=== PATIENT | female | born 1955 | race Caucasian/White ===

== ENCOUNTER → 2017-08-01 | Outpatient (CLI) | payer OTHER ==
[~2017-08-01] MED LIST: 0; ADAL40PEN IM; ADAL40PEN SC; ALBIPROI INH; ALBU2.5V5 NEB; ALBU90OI6 INH; ALEN70 PO; ALPR.25 PO; AMIT10 PO; AMIT25 PO; ATOR10 PO; Bacid1 EACH PO; CARI350 PO; CELE200 PO; CENTRUM SILVER1 EAC2 PO; CEPH500 PO; CLON1 PO; CODGUAEL PO; DILT60 PO; DIPATR PO; DOCU100 PO; DULO30 PO; DULO60 PO; EMBREL INJ; ERGO400 PO; ESTMED1.5T PO; ETAN50I INJ; FENT50TP TOP; FENT75TP TOP; FERR325 PO; FLUCONAZOLE PO; FLUO20; FLUO20 PO; FOLI1; FOLI1 PO; HYDACE10B PO; HYDACE5 PO; HYDMOR2 PO; HYDMOR4 PO; HYDR1TAB94 PO; IMITREX PO; Keflex500 MG PO; LEVO750 PO; LIDO700A20 TOP; LORA2 PO; LYRICA PO; METTREX2.5; METTREX2.5 PO; NAPR220 PO; Nicoderm Cq1 EAC1 ID; OMEG1CAP30 PO; OXYACE5T PO; OXYC10ER PO; OXYC15ER PO; OXYC1TAB11 PO; OXYC5 PO; PERCOCET PO; PRED10 PO; PRED20 PO; PREG200 PO; PREG50 PO; PROM25 PO; PROVENTIL INH; PROZAC PO; PROZAC20 MG PO; Prednisone20 MG PO; REMICADE; RXHYDMOR2 PO; SIMV5 PO; SUMA25 PO; TIOT18 IH; TRAZ50; TRAZ50 PO; VALS80; VIT D PO; Women's Daily1 EACH PO; [UNRECOGNIZED DRUG - OTHER] PO
[2017-08-03 11:21] LABS: HPV Genotype 16 Not Detected (NOTDET); HPV Genotype 18 Not Detected (NOTDET)
[2017-08-09 08:00] LABS: HPV High Risk Other Detected (NOTDET)
== END ==
LOC: LAB 16:20
PROVIDERS: Nurse Practitioner Family
DX: Z12.4 Encounter for screening for malignant neoplasm of cervix (principal)
CPT/HCPCS: 87624; G0145

== ENCOUNTER 2018-01-21 20:52 | Observation (INO) | payer OTHER ==
[~2018-01-21] VITALS: Ht 172.7 cm; Wt 79.9 kg
[~2018-01-21 20:52] MED LIST changes: -ADAL40PEN SC; -ALBU2.5V5 NEB; -ALBU90OI6 INH; -ERGO400 PO; -LIDO700A20 TOP; -OXYC10ER PO; -Women's Daily1 EACH PO
[2018-01-21] MEDS ORDERED: ALBU2.5V5 NEB (21:08)
[2018-01-21] MEDS ORDERED: ALBU90OI6 INH (21:08)
[2018-01-21] MEDS ORDERED: ADAL40PEN SC (21:08)
[2018-01-21 21:38] LABS: BASOPHILS ABSOLUTE AUTO 0.05 K/mm3 (0.00-0.23); BASOPHILS PERCENT AUTO 1 % (0-2); EOSINOPHILS ABSOLUTE AUTO 0.11 K/mm3 (0.00-0.68); EOSINOPHILS PERCENT AUTO 1 % (0-6); Hematocrit 42.7 % (33.0-51.0); Hemoglobin 14.2 g/dL (11.5-16.0); IMMATURE GRAN ABSOLUTE AUTO 0.07 K/mm3 (0.00-0.10); IMMATURE GRAN PERCENT AUTO 1 % (0-1); LYMPHOCYTES ABSOLUTE AUTO 4.87 K/mm3 (0.84-5.20); LYMPHOCYTES PERCENT AUTO 49 % (21-46); MONOCYTES ABSOLUTE AUTO 0.67 K/mm3 (0.16-1.47); MONOCYTES PERCENT AUTO 7 % (4-13); Mean Corpuscular HGB 31.2 pg (26.0-34.0); Mean Corpuscular HGB Conc 33.3 g/dL (31.5-36.5); Mean Corpuscular Volume 94 fL (80-100); Mean Platelet Volume 10.1 fL (9.1-12.4); NEUTROPHILS ABSOLUTE AUTO 4.14 K/mm3 (1.96-9.15); NEUTROPHILS PERCENT AUTO 42 % (41-73); Platelet Count 379 K/mm3 (150-400); RDW Coefficient Variation 15.6 % (11.7-14.2); RDW Standard Deviation 53.7 fL (35.1-46.3); Red Blood Cell Count 4.55 M/mm3 (3.80-5.20); White Blood Cell Count 9.91 K/mm3 (4.00-11.30)
[2018-01-21 21:56] LABS: Alanine Aminotransfer (ALT/SGP 26 U/L (12-78); Albumin, Blood 3.3 g/dL (3.4-5.0); Albumin/Globulin Ratio 0.8 (0.8-1.8); Alk Phos 67 U/L (50-136); Anion Gap 11 mmol/L (6-16); Aspartate Aminotrans (AST/SGOT 28 U/L (12-37); Bilirubin, Total 0.1 mg/dL (0.1-1.0); Blood Urea Nitrogen 12 mg/dL (8-24); Bun/Creatinine Ratio 16.9 (12.0-20.0); CO2, Blood 25 mmol/L (21-32); Calcium, Blood 8.4 mg/dL (8.5-10.1); Chloride, Blood 110 mmol/L (98-108); Creatinine, Blood 0.71 mg/dL (0.40-1.00); Globulin, Blood 4.3 g/dL (2.2-4.0); Glomerular Filtration Rate >60 (60-); Glucose, Blood 87 mg/dL (70-99); Potassium, Blood 3.3 mmol/L (3.5-5.5); Sodium, Blood 146 mmol/L (136-145); Total Protein, Blood 7.6 g/dL (6.4-8.2)
[2018-01-21 22:14] LABS: Bicarbonate Venous 24.2 mmol/L (24.0-30.0); PCO2 Venous 44.8 mmHg (38-42); PO2 Venous 35.8 mmHg (38-42); pH Blood Venous 7.38 (7.34-7.37)
[2018-01-21 22:34] LABS: Troponin I <0.015 ng/mL (0.000-0.040)
[2018-01-21 23:20] LABS: U Amphetamine Screen Not Detected; U Barbituate Screen Not Detected; U Benzodiazapine Screen DETECTED; U Buprenorphine Screen Not Detected; U Cannabinoids Screen Not Detected; U Cocaine Screen Not Detected; U Methadone Screen Not Detected; U Methamphetamine Screen Not Detected; U Opiates Screen Not Detected; U Oxycodone Screen DETECTED; U Phencyclidine Screen Not Detected; U Propoxyphene Screen Not Detected
[2018-01-22 05:16] LABS: BASOPHILS ABSOLUTE AUTO 0.02 K/mm3 (0.00-0.23); BASOPHILS PERCENT AUTO 0 % (0-2); EOSINOPHILS PERCENT AUTO 0 % (0-6); Hematocrit 38.4 % (33.0-51.0); Hemoglobin 12.7 g/dL (11.5-16.0); IMMATURE GRAN ABSOLUTE AUTO 0.09 K/mm3 (0.00-0.10); IMMATURE GRAN PERCENT AUTO 1 % (0-1); LYMPHOCYTES ABSOLUTE AUTO 0.89 K/mm3 (0.84-5.20); LYMPHOCYTES PERCENT AUTO 10 % (21-46); MONOCYTES ABSOLUTE AUTO 0.07 K/mm3 (0.16-1.47); MONOCYTES PERCENT AUTO 1 % (4-13); Mean Corpuscular HGB 30.9 pg (26.0-34.0); Mean Corpuscular HGB Conc 33.1 g/dL (31.5-36.5); Mean Corpuscular Volume 93 fL (80-100); Mean Platelet Volume 10.6 fL (9.1-12.4); NEUTROPHILS ABSOLUTE AUTO 8.18 K/mm3 (1.96-9.15); NEUTROPHILS PERCENT AUTO 88 % (41-73); Platelet Count 334 K/mm3 (150-400); RDW Coefficient Variation 15.6 % (11.7-14.2); RDW Standard Deviation 53.8 fL (35.1-46.3); Red Blood Cell Count 4.11 M/mm3 (3.80-5.20); White Blood Cell Count 9.25 K/mm3 (4.00-11.30)
[2018-01-22 05:39] LABS: Anion Gap 10 mmol/L (6-16); Blood Urea Nitrogen 15 mg/dL (8-24); Bun/Creatinine Ratio 22.4 (12.0-20.0); CO2, Blood 24 mmol/L (21-32); Calcium, Blood 7.8 mg/dL (8.5-10.1); Chloride, Blood 108 mmol/L (98-108); Creatinine, Blood 0.67 mg/dL (0.40-1.00); Glomerular Filtration Rate >60 (60-); Glucose, Blood 153 mg/dL (70-99); Potassium, Blood 3.8 mmol/L (3.5-5.5); Sodium, Blood 142 mmol/L (136-145)
== END 2018-01-22 10:20 | disposition home or self-care (01) ==
LOC: ER 20:52 → MEDS 20:53 → ENPENDDIS 01-22 09:36 → MEDS 01-22 10:20
PROVIDERS: Emergency Medicine; Hospitalist
DX: R09.02 Hypoxemia (principal); M06.9 Rheumatoid arthritis, unspecified; M79.7 Fibromyalgia; G43.909 Migraine, unspecified, not intractable, without status migrainosus; F41.9 Anxiety disorder, unspecified; F32.9 Major depressive disorder, single episode, unspecified; F17.210 Nicotine dependence, cigarettes, uncomplicated; J84.9 Interstitial pulmonary disease, unspecified; I95.9 Hypotension, unspecified; Z79.4 Long term (current) use of insulin; Z79.899 Other long term (current) drug therapy; Z88.8 Allergy status to other drugs, medicaments and biological substances; Z91.048 Other nonmedicinal substance allergy status
CPT/HCPCS: 36415; 71046; 71260; 80048; 80053; 82803; 83605; 83880; 84484; 85025; 85379; 87040; 94644; 96361; 96365; 96366; 96372; 96374; 96375; 96376; 99285-25; G0378; J0456; J0696; J1650; J2930; J7030; J7050; Q9967

== ENCOUNTER 2018-04-08 18:50 | Emergency (ER) | payer OTHER ==
[~2018-04-08] VITALS: Ht 172.7 cm; Wt 77.1 kg
[~2018-04-08 18:50] MED LIST changes: +ADAL40PEN SC; +ALBU2.5V5 NEB; +ALBU90OI6 INH
[2018-04-08] MEDS ORDERED: LIDO700A20 TOP (20:11)
== END 2018-04-08 20:23 | disposition home or self-care (01) ==
LOC: ER 18:50
DX: S22.32XA Fracture of one rib, left side, initial encounter for closed fracture (principal); F41.9 Anxiety disorder, unspecified; F32.9 Major depressive disorder, single episode, unspecified; F17.210 Nicotine dependence, cigarettes, uncomplicated; Z88.8 Allergy status to other drugs, medicaments and biological substances; Z88.6 Allergy status to analgesic agent; Z91.048 Other nonmedicinal substance allergy status; Z79.899 Other long term (current) drug therapy; Z79.51 Long term (current) use of inhaled steroids; W06.XXXA Fall from bed, initial encounter
CPT/HCPCS: 71046; 71100; 96372; 99283-25; J1885

== ENCOUNTER 2018-08-05 13:03 | Emergency (ER) | payer OTHER ==
[~2018-08-05] VITALS: Ht 172.7 cm; Wt 69.8 kg
[~2018-08-05 13:03] MED LIST changes: +ERGO400 PO; +LIDO700A20 TOP; +OXYC10ER PO; +Women's Daily1 EACH PO
[2018-08-05 13:27] LABS: BASOPHILS ABSOLUTE AUTO 0.08 K/mm3 (0.00-0.23); BASOPHILS PERCENT AUTO 1 % (0-2); EOSINOPHILS ABSOLUTE AUTO 0.13 K/mm3 (0.00-0.68); EOSINOPHILS PERCENT AUTO 1 % (0-6); Hematocrit 38.1 % (33.0-51.0); Hemoglobin 11.4 g/dL (11.5-16.0); IMMATURE GRAN ABSOLUTE AUTO 0.41 K/mm3 (0.00-0.10); IMMATURE GRAN PERCENT AUTO 4 % (0-1); LYMPHOCYTES ABSOLUTE AUTO 2.29 K/mm3 (0.84-5.20); LYMPHOCYTES PERCENT AUTO 21 % (21-46); MONOCYTES PERCENT AUTO 5 % (4-13); Mean Corpuscular HGB 32.6 pg (26.0-34.0); Mean Corpuscular HGB Conc 29.9 g/dL (31.5-36.5); Mean Corpuscular Volume 109 fL (80-100); Mean Platelet Volume 11.5 fL (9.1-12.4); NEUTROPHILS ABSOLUTE AUTO 7.68 K/mm3 (1.96-9.15); NEUTROPHILS PERCENT AUTO 69 % (41-73); Platelet Count 240 K/mm3 (150-400); RDW Coefficient Variation 15.9 % (11.7-14.2); RDW Standard Deviation 64.6 fL (35.1-46.3); White Blood Cell Count 11.09 K/mm3 (4.00-11.30)
[2018-08-05 13:44] LABS: Alanine Aminotransfer (ALT/SGP 30 U/L (12-78); Albumin, Blood 3.1 g/dL (3.4-5.0); Albumin/Globulin Ratio 0.8 (0.8-1.8); Alk Phos 80 U/L (50-136); Anion Gap 6 mmol/L (6-16); Aspartate Aminotrans (AST/SGOT 34 U/L (12-37); Bilirubin, Total 0.2 mg/dL (0.1-1.0); Blood Urea Nitrogen 14 mg/dL (8-24); CO2, Blood 31 mmol/L (21-32); Calcium, Blood 8.6 mg/dL (8.5-10.1); Chloride, Blood 106 mmol/L (98-108); Creatinine, Blood 0.64 mg/dL (0.40-1.00); Globulin, Blood 3.8 g/dL (2.2-4.0); Glomerular Filtration Rate >60 (60-); Glucose, Blood 115 mg/dL (70-99); Potassium, Blood 4.3 mmol/L (3.5-5.5); Sodium, Blood 143 mmol/L (136-145); Total Protein, Blood 6.9 g/dL (6.4-8.2)
== END 2018-08-05 13:58 | disposition home or self-care (01) ==
LOC: ER 13:03
PROVIDERS: Internal Medicine
DX: S00.03XA Contusion of scalp, initial encounter (principal); W18.30XA Fall on same level, unspecified, initial encounter; Z88.6 Allergy status to analgesic agent; Z91.048 Other nonmedicinal substance allergy status; Z88.8 Allergy status to other drugs, medicaments and biological substances; Z79.899 Other long term (current) drug therapy; Z79.891 Long term (current) use of opiate analgesic; G43.909 Migraine, unspecified, not intractable, without status migrainosus; F32.9 Major depressive disorder, single episode, unspecified; F17.210 Nicotine dependence, cigarettes, uncomplicated
CPT/HCPCS: 70450; 80053; 85025; 85730; 99284-25

== ENCOUNTER 2018-08-12 11:07 | Emergency (ER) | payer OTHER ==
[~2018-08-12] VITALS: Ht 172.7 cm; Wt 69.8 kg
[2018-08-12] MEDS ORDERED: ALPR.5 PO (12:02)
[2018-08-12] MEDS ORDERED: ACET325 PO (12:02)
[2018-08-12] MEDS ORDERED: ENOX80I SC (12:03)
[2018-08-12] MEDS ORDERED: Bisoprolol Fumar5 MG PO (12:03)
[2018-08-12] MEDS ORDERED: FURO20 PO (12:04)
[2018-08-12] MEDS ORDERED: MIRT15 PO (12:06)
[2018-08-12] MEDS ORDERED: Ipratropium Bro30 ML INH (12:06)
[2018-08-12] MEDS ORDERED: Prednisone10 M1 PO (12:07)
[2018-08-12] MEDS ORDERED: PRED10 (12:07)
[2018-08-12] MEDS ORDERED: QUET25 PO (12:08)
[2018-08-12] MEDS ORDERED: RAME8 PO (12:08)
[2018-08-12] MEDS ORDERED: VORI200 PO (12:09)
[2018-08-12] MEDS ORDERED: SPIR25 PO (12:09)
[2018-08-12 12:49] LABS: BASOPHILS ABSOLUTE AUTO 0.05 K/mm3 (0.00-0.23); BASOPHILS PERCENT AUTO 0 % (0-2); EOSINOPHILS ABSOLUTE AUTO 0.22 K/mm3 (0.00-0.68); EOSINOPHILS PERCENT AUTO 2 % (0-6); Hematocrit 24.2 % (33.0-51.0); Hemoglobin 7.3 g/dL (11.5-16.0); IMMATURE GRAN ABSOLUTE AUTO 0.87 K/mm3 (0.00-0.10); IMMATURE GRAN PERCENT AUTO 6 % (0-1); LYMPHOCYTES ABSOLUTE AUTO 2.67 K/mm3 (0.84-5.20); LYMPHOCYTES PERCENT AUTO 19 % (21-46); MONOCYTES ABSOLUTE AUTO 1.71 K/mm3 (0.16-1.47); MONOCYTES PERCENT AUTO 12 % (4-13); Mean Corpuscular HGB 33.2 pg (26.0-34.0); Mean Corpuscular HGB Conc 30.2 g/dL (31.5-36.5); Mean Corpuscular Volume 110 fL (80-100); Mean Platelet Volume 11.5 fL (9.1-12.4); NEUTROPHILS ABSOLUTE AUTO 8.63 K/mm3 (1.96-9.15); NEUTROPHILS PERCENT AUTO 61 % (41-73); NRBC ABSOLUTE 0.03 K/mm3 (0.00-0.02); NRBC Auto 0.2 /100 WBC (0.0-0.2); Platelet Count 256 K/mm3 (150-400); RDW Coefficient Variation 14.9 % (11.7-14.2); White Blood Cell Count 14.15 K/mm3 (4.00-11.30)
[2018-08-12 13:02] LABS: Alanine Aminotransfer (ALT/SGP 18 U/L (12-78); Albumin, Blood 2.6 g/dL (3.4-5.0); Albumin/Globulin Ratio 0.8 (0.8-1.8); Alk Phos 79 U/L (50-136); Anion Gap 5 mmol/L (6-16); Aspartate Aminotrans (AST/SGOT 19 U/L (12-37); Bilirubin, Total 0.3 mg/dL (0.1-1.0); Blood Urea Nitrogen 22 mg/dL (8-24); Bun/Creatinine Ratio 30.1 (12.0-20.0); CO2, Blood 28 mmol/L (21-32); Calcium, Blood 7.8 mg/dL (8.5-10.1); Chloride, Blood 103 mmol/L (98-108); Creatinine, Blood 0.73 mg/dL (0.40-1.00); Globulin, Blood 3.3 g/dL (2.2-4.0); Glomerular Filtration Rate >60 (60-); Glucose, Blood 118 mg/dL (70-99); Potassium, Blood 4.5 mmol/L (3.5-5.5); Sodium, Blood 136 mmol/L (136-145); Total Protein, Blood 5.9 g/dL (6.4-8.2)
[2018-08-12] MEDS ORDERED: IRON150C PO (13:50)
[2018-08-12] MEDS ORDERED: Ultram50 MG PO (13:50)
== END 2018-08-12 15:06 | disposition home or self-care (01) ==
LOC: ER 11:07
PROVIDERS: Physician Assistant
DX: S80.11XA Contusion of right lower leg, initial encounter (principal); D64.9 Anemia, unspecified; D68.9 Coagulation defect, unspecified; I82.411 Acute embolism and thrombosis of right femoral vein; W19.XXXA Unspecified fall, initial encounter; Z88.8 Allergy status to other drugs, medicaments and biological substances; Z88.6 Allergy status to analgesic agent; Z91.048 Other nonmedicinal substance allergy status; Z79.899 Other long term (current) drug therapy; Z79.891 Long term (current) use of opiate analgesic; Z79.52 Long term (current) use of systemic steroids; G43.909 Migraine, unspecified, not intractable, without status migrainosus; F32.9 Major depressive disorder, single episode, unspecified; I48.91 Unspecified atrial fibrillation; F17.210 Nicotine dependence, cigarettes, uncomplicated
CPT/HCPCS: 36415; 71046; 80053; 83605; 85025; 93005; 93010; 93971; 96361; 96374; 96375; 96376; 99285-25; J2270; J2405; J2930; J7030

== ENCOUNTER 2018-08-16 18:09 | Inpatient (IN) | payer OTHER ==
[~2018-08-16] VITALS: Ht 172.7 cm; Wt 81.1 kg
[~2018-08-16 18:09] MED LIST changes: +ACET325 PO; +ALPR.5 PO; +Bisoprolol Fumar5 MG PO; +ENOX80I SC; +FURO20 PO; +IRON150C PO; +Ipratropium Bro30 ML INH; +MIRT15 PO; +PRED10; +Prednisone10 M1 PO; +QUET25 PO; +RAME8 PO; +SPIR25 PO; +Ultram50 MG PO; +VORI200 PO
[2018-08-16 19:17] LABS: Mean Corpuscular HGB 32.9 pg (26.0-34.0); Mean Corpuscular HGB Conc 29.6 g/dL (31.5-36.5); Mean Corpuscular Volume 111 fL (80-100); Mean Platelet Volume 11.7 fL (9.1-12.4); NRBC ABSOLUTE 1.78 K/mm3 (0.00-0.02); NRBC Auto 7.9 /100 WBC (0.0-0.2); Platelet Count 336 K/mm3 (150-400); RDW Coefficient Variation 16.9 % (11.7-14.2); RDW Standard Deviation 65.1 fL (35.1-46.3); Red Blood Cell Count 1.61 M/mm3 (3.80-5.20); White Blood Cell Count 22.44 K/mm3 (4.00-11.30)
[2018-08-16 19:20] LABS: Hemoglobin 5.3 g/dL (11.5-16.0)
[2018-08-16 19:21] LABS: Hematocrit 17.9 % (33.0-51.0)
[2018-08-16 19:40] LABS: Troponin I <0.015 ng/mL (0.000-0.040)
[2018-08-16 19:55] LABS: Alanine Aminotransfer (ALT/SGP 27 U/L (12-78); Albumin, Blood 2.6 g/dL (3.4-5.0); Albumin/Globulin Ratio 0.7 (0.8-1.8); Alk Phos 99 U/L (50-136); Anion Gap 7 mmol/L (6-16); Aspartate Aminotrans (AST/SGOT 36 U/L (12-37); BAND PERCENT MAN 3 % (0-8); BASOPHILS PERCENT MAN 0 % (0-2); Bilirubin, Total 0.8 mg/dL (0.1-1.0); Blood Urea Nitrogen 20 mg/dL (8-24); Bun/Creatinine Ratio 26.7 (12.0-20.0); CO2, Blood 29 mmol/L (21-32); Calcium, Blood 8.3 mg/dL (8.5-10.1); Chloride, Blood 101 mmol/L (98-108); Creatinine, Blood 0.75 mg/dL (0.40-1.00); EOSINOPHILS ABSOLUTE MAN 0.22 K/mm3 (0.00-0.68); EOSINOPHILS PERCENT MAN 1 % (0-6); Globulin, Blood 3.8 g/dL (2.2-4.0); Glomerular Filtration Rate >60 (60-); Glucose, Blood 114 mg/dL (70-99); LYMPHOCYTES ABSOLUTE MAN 4.48 K/mm3 (0.84-5.20); LYMPHOCYTES PERCENT MAN 20 % (21-46); METAMYELOCYTE ABSOLUTE MAN 0.22 K/mm3 (0.00-0.00); METAMYELOCYTE PERCENT MAN 1 % (0-0); MONOCYTES ABSOLUTE MAN 1.12 K/mm3 (0.16-1.47); MONOCYTES PERCENT MAN 5 % (4-13); NEUTROPHILS ABSOLUTE MAN 16.38 K/mm3 (1.96-9.15); Potassium, Blood 4.2 mmol/L (3.5-5.5); SEG NEUTROPHILS PERCENT MAN 70 % (41-73); Sodium, Blood 137 mmol/L (136-145); TOTAL CELLS COUNTED 100; Total Protein, Blood 6.4 g/dL (6.4-8.2)
[2018-08-16 20:36] LABS: International Normalized Ratio 0.95; Prothrombin Time Results 10.1 Sec (9.7-11.5)
[2018-08-16] MEDS ORDERED: MELA3 PO (23:58)
[2018-08-17 04:16] LABS: Hemoglobin 6.5 g/dL (11.5-16.0); Mean Corpuscular HGB 31.7 pg (26.0-34.0); Mean Platelet Volume 11.3 fL (9.1-12.4); NRBC ABSOLUTE 1.63 K/mm3 (0.00-0.02); NRBC Auto 8.1 /100 WBC (0.0-0.2); Platelet Count 304 K/mm3 (150-400); RDW Coefficient Variation 19.8 % (11.7-14.2); RDW Standard Deviation 69.3 fL (35.1-46.3); Red Blood Cell Count 2.05 M/mm3 (3.80-5.20); White Blood Cell Count 20.01 K/mm3 (4.00-11.30)
[2018-08-17 04:17] LABS: Mean Corpuscular Volume 102 fL (80-100)
[2018-08-17 04:40] LABS: BAND PERCENT MAN 4 % (0-8); BASOPHILS PERCENT MAN 0 % (0-2); EOSINOPHILS PERCENT MAN 1 % (0-6); LYMPHOCYTES PERCENT MAN 20 % (21-46); METAMYELOCYTE PERCENT MAN 4 % (0-0); MONOCYTES PERCENT MAN 4 % (4-13); MYELOCYTE PERCENT MAN 10 % (0-0); SEG NEUTROPHILS PERCENT MAN 57 % (41-73); TOTAL CELLS COUNTED 100
--- NOTE | 2018-08-17 05:49 | NUR ---
ASSUMED CARE OF PATIENT AT APPROXIMATELY 2320 FROM [facility] RN. PATIENT ARRIVED TO UNIT VIA STRETCHER; TRANSFER VIA SLIDE SHEET AND FOUR STAFF ASSIST. PATIENT REPORTS PAIN IMMEDIATELY IN HER RIGHT LEG; REPORTS SHE TAKES OXYCODONE FOR YEARS. ONE UNIT OF RBC INFUSED BEFORE TRANSFER TO PCU; ONE UNIT OF RBC INFUSED AFTER PATIENT ARRIVED; THIS RN STAYED IN ROOM FOR FIRST 15 MINTUES AND NO ADVERSE S/S OF REACTION NOTED. VSS. NSR ON TELE; OXYGEN SATURATION ABOVE 90% ON ROOM AIR. PATIENT REPORTS NUMBNESS AND TINGLING IN BOTH OF HER LEGS. PATIENT DENIES NAUSEA AND DIZZINESS. ONE TO TWO ASSIST W/ FWW TO BEDSIDE COMMODE. LARGE BRUISES ON RIGHT LEG AND LWOER BACK. 2X PIV S/L. CALLED DR. HERRING TO REPORT HEMOGLOBIN OF 6.5; ORDERS RECIEVED FOR TWO MORE UNITS OF RBC THEN H/H TWO HOURS AFTER 2 RBC INFUSED. PATIENT CURRENTLY SLEEPING IN BED; CALL LIGHT REACH IN BED; BED IN LOWEST POSISTION; BED ALARM ON; WILL CONTINUE TO MONITOR AND ASSESS UNTIL END OF SHIFT.
--- NOTE | 2018-08-17 06:55 | NUR ---
THIS RN STAYING IN ROOM FOR FIRST 15 MINUTES OF BLOOD TRANSFUSION. NO ADVERSE S/S OF REACTION NOTED. VSS.
--- NOTE | 2018-08-17 14:25 | NUR ---
Spiritual care visit conducted. Patient was resting when I entered the room but quickly awoke and the sound of her name. I introduced myself and stated the department I was with and patient immediately began sharing her story. She told me of terrible tragedy, amazing miracles and of the love of family and friends. I listened empathically, reinforced her positive outlook and fight, encouraged self-care and provided prayer. All interventions were well received and particularly the prayer. She got teary-eyed during the prayer and told me that she really needed that. Patient displayed evidence of increased zaria and hope.
[2018-08-17 14:56] LABS: Hemoglobin 9.1 g/dL (11.5-16.0)
--- NOTE | 2018-08-17 17:59 | NUR ---
SUMMARY PT TRANSFERRED FROM PCU AROUND 1230, 4TH UNIT OF PRBC'S INFUSING WHEN SHE ARRIVED, PT HAS BEEN PLEASANT AND COOPERATIVE WITH CARE, BLOOD COMPLETED WITH NO ISSUES, PT MAXWELL WELL, PT IS ALERT AND ORIENTED, IS A 1 PERSON ASSIST TO THE BEDSIDE COMMODE, PT'S R LEG IS MARKEDLY LARGER THAN THE LEFT AND IS FIRM TO THE TOUCH, PT HAS A LARGE HEMATOMA TO HER R BUTTOCK AND LEG, PT REPORTS PERIPHERAL NEUROPATHY AFFECTING HER ABILITY TO MOVE HER LEG WELL, PT HAS BEEN MED PER EMAR FOR PAIN AND ANXIETY, FAMILY HAS BEEN IN TO VISIT, PT USES THE CALL LIGHT APPROPRIATLY, VSS, NO ACUTE CHANGES, WILL CONT TO MONITOR
[2018-08-18 05:02] LABS: Hematocrit 28.1 % (33.0-51.0); Hemoglobin 8.9 g/dL (11.5-16.0); Mean Corpuscular HGB 31.6 pg (26.0-34.0); Mean Corpuscular HGB Conc 31.7 g/dL (31.5-36.5); Mean Corpuscular Volume 100 fL (80-100); Mean Platelet Volume 11.2 fL (9.1-12.4); NRBC ABSOLUTE 1.02 K/mm3 (0.00-0.02); NRBC Auto 5.4 /100 WBC (0.0-0.2); Platelet Count 298 K/mm3 (150-400); RDW Coefficient Variation 21.3 % (11.7-14.2); RDW Standard Deviation 71.1 fL (35.1-46.3); Red Blood Cell Count 2.82 M/mm3 (3.80-5.20); White Blood Cell Count 19.04 K/mm3 (4.00-11.30)
[2018-08-18 05:14] LABS: Albumin, Blood 2.2 g/dL (3.4-5.0); Anion Gap 6 mmol/L (6-16); Blood Urea Nitrogen 20 mg/dL (8-24); Bun/Creatinine Ratio 25.1 (12.0-20.0); CO2, Blood 27 mmol/L (21-32); Calcium, Blood 7.7 mg/dL (8.5-10.1); Chloride, Blood 110 mmol/L (98-108); Glomerular Filtration Rate >60 (60-); Glucose, Blood 92 mg/dL (70-99); International Normalized Ratio 0.94; Phosphorus, Blood 3.3 mg/dL (2.5-4.9); Potassium, Blood 4.6 mmol/L (3.5-5.5); Sodium, Blood 143 mmol/L (136-145)
[2018-08-18 05:29] LABS: BAND PERCENT MAN 2 % (0-8); BASOPHILS PERCENT MAN 0 % (0-2); EOSINOPHILS ABSOLUTE MAN 0.19 K/mm3 (0.00-0.68); EOSINOPHILS PERCENT MAN 1 % (0-6); LYMPHOCYTES ABSOLUTE MAN 4.18 K/mm3 (0.84-5.20); LYMPHOCYTES PERCENT MAN 22 % (21-46); METAMYELOCYTE ABSOLUTE MAN 0.76 K/mm3 (0.00-0.00); METAMYELOCYTE PERCENT MAN 4 % (0-0); MONOCYTES ABSOLUTE MAN 0.38 K/mm3 (0.16-1.47); MONOCYTES PERCENT MAN 2 % (4-13); MYELOCYTE ABSOLUTE MAN 1.14 K/mm3 (0.00-0.00); MYELOCYTE PERCENT MAN 6 % (0-0); NEUTROPHILS ABSOLUTE MAN 12.37 K/mm3 (1.96-9.15); SEG NEUTROPHILS PERCENT MAN 63 % (41-73); TOTAL CELLS COUNTED 100
--- NOTE | 2018-08-18 05:35 | NUR ---
VSS, AFEBRILE, A/O, INDEPENDENT TO BSC, 18G L AC, 20G R FA, SWOLLEN L THIGH WHERE DVT IS LOCATED, VERY PAINFUL, OXY Q6 HR, PT WATCHES THE CLOCK, HGB DROPPING AGAIN, PT HOPING TO D/C TODAY
--- NOTE | 2018-08-18 08:40 | NUR ---
ASSUMED CARE OF PT- RECIEVED REPORT FORM NIGHT JASSON GALLO. PER REPORT PT RECIEVED MULTIPLE UNITS OF BLOOD FOR SEVERE ANEMIA. PT MORNIGN LABS SHOW LITTLE CHANGE SINCE LAST LABS. PT ASKING IF SHE CAN BE DISCHARGED TODAY. LLE STILL SWOLEN.
[2018-08-18] MEDS ORDERED: AZIT500 PO (10:45)
--- NOTE | 2018-08-18 12:17 | NUR ---
DISCHARGE NOTE- PT WAS DC'D HOME TODAY, SPOUSE PRESENT FOR DISCHARGE TEACHING, PT GIVEN VERBAL AND WRITTEN DISCHARGE INSTRUCTIONS AND ACKNOWLEDGED UNDERSTANDING OF THEM. BOTH IV'S DC'D AT THE TIME OF DISCHARGE. NO S&S OF PAIN OR DISTRESS NOTED AT THE TIME OF DISCHARGE, PT DECLINED STAFF ESCORT AND WAS TAKEN OUT VIA HER PERSONAL W/C BY HER SPOUSE.
== END 2018-08-18 11:44 | disposition home or self-care (01) | DRG 811 ==
LOC: ER 18:09 → MEDS 22:26 → PCU 22:26 → MEDS 08-17 11:39
PROVIDERS: Emergency Medicine; Family Medicine; ADMIT Hospitalist
PROC: 30233N1 Transfusion of Nonautologous Red Blood Cells into Peripheral Vein, Percutaneous Approach (ICD-10-PCS; principal; 2018-08-16)
DX: D62 Acute posthemorrhagic anemia (principal); J18.9 Pneumonia, unspecified organism; J44.0 Chronic obstructive pulmonary disease with (acute) lower respiratory infection; F11.20 Opioid dependence, uncomplicated; S30.0XXA Contusion of lower back and pelvis, initial encounter; J44.9 Chronic obstructive pulmonary disease, unspecified; M06.9 Rheumatoid arthritis, unspecified; G89.4 Chronic pain syndrome; F32.9 Major depressive disorder, single episode, unspecified; I10 Essential (primary) hypertension; F41.9 Anxiety disorder, unspecified; M79.7 Fibromyalgia; W19.XXXA Unspecified fall, initial encounter; Z86.718 Personal history of other venous thrombosis and embolism; Z79.01 Long term (current) use of anticoagulants; Z86.711 Personal history of pulmonary embolism; I95.9 Hypotension, unspecified; I48.91 Unspecified atrial fibrillation; F17.210 Nicotine dependence, cigarettes, uncomplicated
CPT/HCPCS: 36415; 36430; 71260; 74177; 80053; 80069; 82272; 83605; 83880; 84145; 84484; 85014; 85018; 85025; 85610; 85730; 86850; 86900; 86901; 86923; 87040; 93971; 96360; 99285-25; J1885; J2543; J3370; J7030; J7040; J7050; P9016; Q9967

== ENCOUNTER → 2019-07-02 | Outpatient (CLI) | payer OTHER ==
[~2019-07-02] MED LIST changes: +AZIT500 PO; +MELA3 PO
[2019-07-04 16:06] LABS: HPV 16 Negative (Negative); HPV 18 Negative (Negative); HPV OTHER HR TYPES Negative (Negative)
== END | disposition home or self-care (01) ==
LOC: LAB SHORT 18:17 → LAB 18:17
PROVIDERS: Nurse Practitioner Family
DX: R87.618 Other abnormal cytological findings on specimens from cervix uteri (principal)
CPT/HCPCS: 87624; 88175

== ENCOUNTER 2019-10-11 17:38 | Inpatient (IN) | payer OTHER ==
[~2019-10-11] VITALS: Ht 172.7 cm; Wt 94.3 kg
[~2019-10-11 17:38] MED LIST changes: -ERGO400 PO; +THERA-D2000 UNIT PO
[2019-10-11 18:04] LABS: PCO2 Arterial 45.6 mmHg (35-45); PO2 Arterial 52.6 mmHg (80-100)
[2019-10-11 18:24] LABS: BASOPHILS ABSOLUTE AUTO 0.07 K/mm3 (0.00-0.23); BASOPHILS PERCENT AUTO 1 % (0-2); EOSINOPHILS ABSOLUTE AUTO 0.27 K/mm3 (0.00-0.68); EOSINOPHILS PERCENT AUTO 2 % (0-6); Hematocrit 45.2 % (33.0-51.0); Hemoglobin 14.4 g/dL (11.5-16.0); IMMATURE GRAN ABSOLUTE AUTO 0.15 K/mm3 (0.00-0.10); IMMATURE GRAN PERCENT AUTO 1 % (0-1); LYMPHOCYTES ABSOLUTE AUTO 2.55 K/mm3 (0.84-5.20); LYMPHOCYTES PERCENT AUTO 19 % (21-46); MONOCYTES ABSOLUTE AUTO 0.66 K/mm3 (0.16-1.47); MONOCYTES PERCENT AUTO 5 % (4-13); Mean Corpuscular HGB 32.1 pg (26.0-34.0); Mean Corpuscular HGB Conc 31.9 g/dL (31.5-36.5); Mean Corpuscular Volume 101 fL (80-100); Mean Platelet Volume 11.9 fL (9.1-12.4); NEUTROPHILS ABSOLUTE AUTO 10.05 K/mm3 (1.96-9.15); NEUTROPHILS PERCENT AUTO 73 % (41-73); Platelet Count 233 K/mm3 (150-400); RDW Coefficient Variation 14.3 % (11.7-14.2); RDW Standard Deviation 53.4 fL (35.1-46.3); Red Blood Cell Count 4.49 M/mm3 (3.80-5.20); White Blood Cell Count 13.75 K/mm3 (4.00-11.30)
[2019-10-11 18:29] LABS: International Normalized Ratio 0.98; Prothrombin Time Results 10.5 Sec (9.7-11.5)
[2019-10-11 18:34] LABS: Alanine Aminotransfer (ALT/SGP 49 U/L (12-78); Albumin, Blood 3.6 g/dL (3.4-5.0); Albumin/Globulin Ratio 0.8 (0.8-1.8); Alk Phos 68 U/L (50-136); Anion Gap 2 mmol/L (6-16); Aspartate Aminotrans (AST/SGOT 42 U/L (12-37); Bilirubin, Total 0.3 mg/dL (0.1-1.0); Blood Urea Nitrogen 23 mg/dL (8-24); Bun/Creatinine Ratio 24.9 (12.0-20.0); CO2, Blood 31 mmol/L (21-32); Calcium, Blood 9.5 mg/dL (8.5-10.1); Chloride, Blood 104 mmol/L (98-108); Creatinine, Blood 0.92 mg/dL (0.40-1.00); Globulin, Blood 4.6 g/dL (2.2-4.0); Glomerular Filtration Rate >60 (60-); Glucose, Blood 108 mg/dL (70-99); Potassium, Blood 4.7 mmol/L (3.5-5.5); Sodium, Blood 137 mmol/L (136-145); Total Protein, Blood 8.2 g/dL (6.4-8.2)
[2019-10-11 21:26] LABS: Source, Urine Catheter
[2019-10-11 21:31] LABS: Bilirubin, Urine Neg (Neg); Blood, Urine Neg (Neg); Glucose Qualitative, Urine Neg (Neg); Ketones, Urine Neg (Neg); Leukocyte Esterase, Urine Neg (Neg); Nitrite, Urine Neg (Neg); Protein, Urine Neg (Neg); Urobilinogen, Urine NORM (Normal)
[2019-10-11 21:34] LABS: Appearance, Urine Clear (Clear); Color, Urine Yellow (P-Yellow)
[2019-10-11] MEDS ORDERED: HUMIRA40 MG/0.8 (22:04)
[2019-10-11] MEDS ORDERED: ONDA4ODT MM (22:05)
[2019-10-11] MEDS ORDERED: FUROSEMIDE20 MG PO (22:05)
[2019-10-11] MEDS ORDERED: ASPI81CH PO (22:05)
[2019-10-12 04:23] LABS: Hematocrit 42.3 % (33.0-51.0); Hemoglobin 13.4 g/dL (11.5-16.0); Mean Corpuscular HGB 31.8 pg (26.0-34.0); Mean Corpuscular HGB Conc 31.7 g/dL (31.5-36.5); Mean Corpuscular Volume 100 fL (80-100); Mean Platelet Volume 11.4 fL (9.1-12.4); Platelet Count 236 K/mm3 (150-400); RDW Coefficient Variation 14.5 % (11.7-14.2); RDW Standard Deviation 53.1 fL (35.1-46.3); Red Blood Cell Count 4.22 M/mm3 (3.80-5.20); White Blood Cell Count 14.62 K/mm3 (4.00-11.30)
[2019-10-12 04:46] LABS: Albumin, Blood 3.3 g/dL (3.4-5.0); Albumin/Globulin Ratio 0.8 (0.8-1.8); Bilirubin, Total 0.3 mg/dL (0.1-1.0); Bun/Creatinine Ratio 22.2 (12.0-20.0); Calcium, Blood 8.9 mg/dL (8.5-10.1); Creatinine, Blood 0.99 mg/dL (0.40-1.00); Globulin, Blood 4.2 g/dL (2.2-4.0); Potassium, Blood 4.5 mmol/L (3.5-5.5); Total Protein, Blood 7.5 g/dL (6.4-8.2)
--- NOTE | 2019-10-12 07:58 | NUR ---
SHIFT SUMMARY PT ARRIVED FROM ER VIA STRETCHER TRANSFERED SELF TO BED; A&O; C/O CHRONIC PAIN; O2 SATS >90 ON 5L NC; WHEEZES AND CRACKLES NOTED; PT STATES SHE HAS HAD PNA A FEW TIMES OVER THE COURSE OF A YEAR; PROVIDER CALLED FOR PAIN MANAGEMENT; NEW ORDER GIVEN FOR FENTANYL, REFER TO EMAR; PT INDEPENDENT TO BSC; CALLS APPROPRIATELY FOR ASSISTANCE; PT C/O NOT HAVING PAIN MANAGED; REPOSITIONING, HEATING PAD, EGG CRATE FOR MATTRESS, RECLINER ALL OFFERED AND PT DENIED; PT BECAME ANXIOUS AND FRUSTRATED; PROVIDER NOTIFIED; NEW ORDER FOR ATIVAN; REFER TO EMAR; PT C/O MEDS NOT ORDERED CORRECTLY; THIS RN WENT THROUGH MED REC AGAIN ONE BY ONE AND VERIFIED W/ PT; PT CURRENTLY RESTING; CALL LIGHT IN REACH; BED IN LOWEST POSITION; REPORT GIVEN TO DAY SHIFT RN.
--- NOTE | 2019-10-12 17:38 | NUR ---
SHIFT SUMMARY NO ACUTE CHANGES NOTED THROUGH THE DAY. PT IS A&O X4, ON 5 L VIA NC, O2 SATS REMAIN AROUND 90-92%, PT DENIES SOB/CP. LUNG SOUNDS ARE DIMINISHED/WHEEZES. PAIN MANAGED W/PO OXYCODONE. PT IS A STAND BY ASSIST TO THE BSC. TOLERATING PO INTAKE. VOIDING WNL. PT CALLS FOR ASSISTAMCE PRN. CALL LIGHT IN REACH.
[2019-10-13 04:10] LABS: BASOPHILS ABSOLUTE AUTO 0.03 K/mm3 (0.00-0.23); BASOPHILS PERCENT AUTO 0 % (0-2); EOSINOPHILS PERCENT AUTO 0 % (0-6); IMMATURE GRAN ABSOLUTE AUTO 0.23 K/mm3 (0.00-0.10); IMMATURE GRAN PERCENT AUTO 1 % (0-1); LYMPHOCYTES ABSOLUTE AUTO 1.79 K/mm3 (0.84-5.20); LYMPHOCYTES PERCENT AUTO 11 % (21-46); MONOCYTES PERCENT AUTO 4 % (4-13); Mean Corpuscular HGB 32.2 pg (26.0-34.0); Mean Corpuscular HGB Conc 31.7 g/dL (31.5-36.5); Mean Corpuscular Volume 102 fL (80-100); Mean Platelet Volume 11.2 fL (9.1-12.4); NEUTROPHILS ABSOLUTE AUTO 13.51 K/mm3 (1.96-9.15); NEUTROPHILS PERCENT AUTO 83 % (41-73); Platelet Count 255 K/mm3 (150-400); RDW Standard Deviation 53.1 fL (35.1-46.3); Red Blood Cell Count 4.04 M/mm3 (3.80-5.20); White Blood Cell Count 16.26 K/mm3 (4.00-11.30)
[2019-10-13 04:30] LABS: Anion Gap 5 mmol/L (6-16); Blood Urea Nitrogen 21 mg/dL (8-24); Bun/Creatinine Ratio 24.1 (12.0-20.0); CO2, Blood 28 mmol/L (21-32); Calcium, Blood 8.8 mg/dL (8.5-10.1); Chloride, Blood 105 mmol/L (98-108); Creatinine, Blood 0.87 mg/dL (0.40-1.00); Glomerular Filtration Rate >60 (60-); Glucose, Blood 151 mg/dL (70-99); Potassium, Blood 4.2 mmol/L (3.5-5.5); Sodium, Blood 138 mmol/L (136-145)
--- NOTE | 2019-10-13 07:46 | NUR ---
SHIFT SUMMARY PT A&O; C/O CHRONIC PAIN; MEDICATED MANAN PER EMAR; EGG CRATE PLACED ON MATTRESS FOR COMFORT; WARM BLANKETS BROUGHT TO PT; SNACKS AND COLD DRINK BROUGHT TO PT FOR ENCOURAGMENT AND DISTRACTION; PT DENIES CHEST PAIN; NSR HR 80'S NOTED ON TELE; O2 SATS >90 ON 5L NC; TALKS IN FULL SENTENCES FOR SEVERAL MINUTES W/ NO DESATURATIONS NOTED; CALL LIGHT IN REACH; BED IN LOWEST POSITION; REPORT GIVEN TO DAY SHIFT RN.
[2019-10-13 12:56] LABS: Adenovirus Not Detected (NOT DETECT); Bordetella pertussis Not Detected (NOT DETECT); Chlamydophila pneumoniae Not Detected (NOT DETECT); Coronavirus 229E Not Detected (NOT DETECT); Coronavirus HKU1 Not Detected (NOT DETECT); Coronavirus NL63 Not Detected (NOT DETECT); Coronavirus OC43 Not Detected (NOT DETECT); Human Metapneumovirus Not Detected (NOT DETECT); Human Rhinovirus/Enterovirus Not Detected (NOT DETECT); Influenza A/2009-H1 Not Detected (NOT DETECT); Influenza A/H1 Not Detected (NOT DETECT); Influenza A/H3 Not Detected (NOT DETECT); Influenza B Not Detected (NOT DETECT); Mycoplasma pneumoniae Not Detected (NOT DETECT); Parainfluenza Virus 1 Not Detected (NOT DETECT); Parainfluenza Virus 2 Not Detected (NOT DETECT); Parainfluenza Virus 3 Not Detected (NOT DETECT); Parainfluenza Virus 4 Not Detected (NOT DETECT); Respiratory Syncytial Virus Not Detected (NOT DETECT)
--- NOTE | 2019-10-13 17:17 | NUR ---
SHIFT SUMMARY NO ACUTE CHANGES THROUGHOUT SHIFT. PT REMAINS ON 5L O2 VIA NC; PULSE OX MAINTAINING BETWEEN 89-93%; SOB NOTED W/ EXERTION. CONTINUE TREATMENT FOR PNA. RESP PCR PANEL WAS REORDERED BY DR. RICH SINCE ONE WAS NOT SENT, RESULTS NEGATIVE; COVID-19 RESULTS STILL PENDING; PT REMAINS ON ENHANCED ISOLATION PRECAUTIONS. PT WAS MEDICATED FOR CHRONIC PAIN PER EMAR. CURRENTLY RESTING IN BED IN NO DISTRESS. WILL CONTINUE TO MONITOR UNITL END OF SHIFT.
--- NOTE | 2019-10-14 07:49 | NUR ---
ASSUMED PATIENT CARE. PATIENT RESTING COMFORTABLY IN BED, NO SIGNS OF ACUTE DISTRESS. WCTM.
--- NOTE | 2019-10-14 08:13 | NUR ---
SHIFT SUMMARY PT A&O; VSS; O2 SATS >90 ON 5L NC; PT STATES IMPROVED; INDEPENDENT TO BSC; C/O CHRONIC PAIN; MEDICATED PER EMAR; PT STATES SHE IS ANXIOUS TO GO HOME; CALL LIGHT IN REACH; BED IN LOWEST POSITION; REPORT GIVEN TO DAY SHIFT RN; DR. RICH AT BEDSIDE
[2019-10-14] MEDS ORDERED: GUAI600T33 PO (10:26)
[2019-10-14] MEDS ORDERED: Doxycycline Mo100 M1 PO (10:26)
[2019-10-14] MEDS ORDERED: Vsl#3 Capsule1 EACH PO (10:27)
[2019-10-14] MEDS ORDERED: Prednisone20 MG PO (10:27)
--- NOTE | 2019-10-14 11:24 | NUR ---
PATIENT PROVIDED WITH DISCHARGE INFO REGARDING FOLLOW-UP PLANS, REASONS TO RETURN TO THE HOSPITAL, AND NEW MEDICATION INFORMATION. PATIENT VERBALIZED UNDERSTANDING. NO SIGNS OF ACUTE DISTRESS.
== END 2019-10-14 11:39 | disposition home or self-care (01) | DRG 193 ==
LOC: ER 17:38 → PCU 23:07
PROVIDERS: Internal Medicine; Physician Assistant; ADMIT Internal Medicine
DX: J18.9 Pneumonia, unspecified organism (principal); J96.01 Acute respiratory failure with hypoxia; J44.0 Chronic obstructive pulmonary disease with (acute) lower respiratory infection; M79.7 Fibromyalgia; G89.4 Chronic pain syndrome; M06.9 Rheumatoid arthritis, unspecified; F32.9 Major depressive disorder, single episode, unspecified; F41.9 Anxiety disorder, unspecified; G43.909 Migraine, unspecified, not intractable, without status migrainosus; G62.9 Polyneuropathy, unspecified; Z86.718 Personal history of other venous thrombosis and embolism; Z79.82 Long term (current) use of aspirin; Z79.899 Other long term (current) drug therapy; Z87.891 Personal history of nicotine dependence
CPT/HCPCS: 0099U; 36415; 36600; 71045; 71250; 80048; 80053; 81003; 82803; 83605; 83880; 84145; 85025; 85027; 85610; 85730; 87040; 87086; 93005; 93010; 94640; 94760; 94762; 96365; 96366; 96375; 96376; 99285-25; A9270; A9270-GY; J0696; J1940; J1956; J2270; J2405; J2543; J2930; J3010; J7050; J7512

== ENCOUNTER 2020-04-02 18:40 | Emergency (ER) | payer OTHER ==
[~2020-04-02] VITALS: Ht 172.7 cm; Wt 98.0 kg
[~2020-04-02 18:40] MED LIST changes: +ASPI81CH PO; +Doxycycline Mo100 M1 PO; +FUROSEMIDE20 MG PO; +GUAI600T33 PO; +HUMIRA40 MG/0.8; +ONDA4ODT MM; +Vsl#3 Capsule1 EACH PO
== END 2020-04-02 22:47 | disposition home or self-care (01) ==
LOC: ER 18:40
DX: S40.022A Contusion of left upper arm, initial encounter (principal); S80.02XA Contusion of left knee, initial encounter; R07.81 Pleurodynia; F41.9 Anxiety disorder, unspecified; F32.9 Major depressive disorder, single episode, unspecified; Z88.8 Allergy status to other drugs, medicaments and biological substances; Z88.6 Allergy status to analgesic agent; Z88.1 Allergy status to other antibiotic agents; Z91.09 Other allergy status, other than to drugs and biological substances; Z79.899 Other long term (current) drug therapy; Z79.82 Long term (current) use of aspirin; J44.9 Chronic obstructive pulmonary disease, unspecified; Z87.891 Personal history of nicotine dependence; Z79.52 Long term (current) use of systemic steroids; W54.1XXA Struck by dog, initial encounter
CPT/HCPCS: 71101; 73060; 96372; 99283-25; J1885

== ENCOUNTER 2020-04-12 20:21 | Inpatient (IN) | payer OTHER ==
[~2020-04-12] VITALS: Ht 172.7 cm; Wt 101.4 kg
[~2020-04-12 20:21] MED LIST changes: +ERGO400 PO; -THERA-D2000 UNIT PO
[2020-04-12] MEDS ORDERED: BUPRENORPHINE HC2 M1 SL (20:30)
[2020-04-12 21:00] LABS: BASOPHILS ABSOLUTE AUTO 0.05 K/mm3 (0.00-0.23); BASOPHILS PERCENT AUTO 0 % (0-2); EOSINOPHILS ABSOLUTE AUTO 0.01 K/mm3 (0.00-0.68); EOSINOPHILS PERCENT AUTO 0 % (0-6); Hematocrit 36.3 % (33.0-51.0); Hemoglobin 11.9 g/dL (11.5-16.0); IMMATURE GRAN ABSOLUTE AUTO 0.21 K/mm3 (0.00-0.10); IMMATURE GRAN PERCENT AUTO 1 % (0-1); LYMPHOCYTES ABSOLUTE AUTO 1.01 K/mm3 (0.84-5.20); LYMPHOCYTES PERCENT AUTO 5 % (21-46); MONOCYTES ABSOLUTE AUTO 1.02 K/mm3 (0.16-1.47); MONOCYTES PERCENT AUTO 5 % (4-13); Mean Corpuscular HGB 32.2 pg (26.0-34.0); Mean Corpuscular HGB Conc 32.8 g/dL (31.5-36.5); Mean Corpuscular Volume 98 fL (80-100); Mean Platelet Volume 11.1 fL (9.1-12.4); NEUTROPHILS PERCENT AUTO 89 % (41-73); Platelet Count 240 K/mm3 (150-400); RDW Coefficient Variation 14.8 % (11.7-14.2); RDW Standard Deviation 53.7 fL (35.1-46.3)
[2020-04-12 21:19] LABS: Alanine Aminotransfer (ALT/SGP 27 U/L (12-78); Albumin, Blood 3.4 g/dL (3.4-5.0); Albumin/Globulin Ratio 0.8 (0.8-1.8); Alk Phos 55 U/L (50-136); Anion Gap 7 mmol/L (6-16); Aspartate Aminotrans (AST/SGOT 28 U/L (12-37); Bilirubin, Total 0.8 mg/dL (0.1-1.0); Blood Urea Nitrogen 19 mg/dL (8-24); Bun/Creatinine Ratio 17.4 (12.0-20.0); CO2, Blood 23 mmol/L (21-32); Calcium, Blood 9.4 mg/dL (8.5-10.1); Chloride, Blood 101 mmol/L (98-108); Creatinine, Blood 1.09 mg/dL (0.40-1.00); Globulin, Blood 4.3 g/dL (2.2-4.0); Glomerular Filtration Rate 53 (60-); Glucose, Blood 139 mg/dL (70-99); Potassium, Blood 4.7 mmol/L (3.5-5.5); Sodium, Blood 131 mmol/L (136-145); Total Protein, Blood 7.7 g/dL (6.4-8.2); Troponin I <0.015 ng/mL (0.000-0.040)
--- NOTE | 2020-04-13 01:37 | NUR ---
RECEIVED REPORT FROM JASSON KAUR. PT TRANSPORTED TO MEDICAL FLOOR VIA GURNEY, AMBULATED SELF TO HOSPITAL BED. NO S/S ACUTE DISTRESS NOTED. SETTLED IN AND ORIENTED TO ROOM. EXPLAINED PLAN OF CARE AND HOURLY ROUNDING TO PT. DENIES NEEDS AT THIS TIME. CALL LIGHT, POSSESSIONS IN REACH. WILL CONTINUE TO MONITOR AND PROVIDE CARE NEEDED.
[2020-04-13] MEDS ORDERED: ALBU90OI INH (02:15)
[2020-04-13] MEDS ORDERED: MELATONIN5 M1 PO (02:23)
--- NOTE | 2020-04-13 03:35 | NUR ---
SPOKE TO DR. FRANCO REGARDING PT'S HOME DOSE OF LYRICA. ORDERS RECEIVED.
--- NOTE | 2020-04-13 05:10 | NUR ---
CLARIFIED PT DOSE OF LYRICA WITH DR. FRANCO, STATING THAT PT'S HOME BOTTLE READS "200MG PO Q8H." ORDERS RECEIVED TO CHANGE DOSAGE. CONTINUE TO MONITOR.
[2020-04-13 05:31] LABS: BASOPHILS ABSOLUTE AUTO 0.07 K/mm3 (0.00-0.23); BASOPHILS PERCENT AUTO 0 % (0-2); EOSINOPHILS PERCENT AUTO 0 % (0-6); Hemoglobin 11.2 g/dL (11.5-16.0); IMMATURE GRAN ABSOLUTE AUTO 0.29 K/mm3 (0.00-0.10); IMMATURE GRAN PERCENT AUTO 1 % (0-1); LYMPHOCYTES ABSOLUTE AUTO 1.14 K/mm3 (0.84-5.20); LYMPHOCYTES PERCENT AUTO 5 % (21-46); MONOCYTES ABSOLUTE AUTO 0.88 K/mm3 (0.16-1.47); MONOCYTES PERCENT AUTO 4 % (4-13); Mean Corpuscular HGB 31.5 pg (26.0-34.0); Mean Corpuscular Volume 98 fL (80-100); Mean Platelet Volume 11.6 fL (9.1-12.4); NEUTROPHILS ABSOLUTE AUTO 21.85 K/mm3 (1.96-9.15); NEUTROPHILS PERCENT AUTO 90 % (41-73); Platelet Count 243 K/mm3 (150-400); RDW Coefficient Variation 14.6 % (11.7-14.2); RDW Standard Deviation 53.3 fL (35.1-46.3); Red Blood Cell Count 3.56 M/mm3 (3.80-5.20); White Blood Cell Count 24.23 K/mm3 (4.00-11.30)
[2020-04-13 05:56] LABS: Bun/Creatinine Ratio 17.4 (12.0-20.0); Calcium, Blood 9.1 mg/dL (8.5-10.1); Creatinine, Blood 1.15 mg/dL (0.40-1.00); Potassium, Blood 4.8 mmol/L (3.5-5.5)
--- NOTE | 2020-04-13 06:05 | NUR ---
SHIFT SUMMARY PT A&O, PLEASANT. UP TO BATHROOM, WITH SBA. WAS RESTING IN BED PREVIOUSLY. NO S/S ACUTE DISTRESS NOTED. O2 SATS STABLE ON 6/02. WORE HOME CPAP. PAIN MANAGED WITH MEDS PER EMAR. NO ACUTE CHANGES IN CONDITION NOTED. VSS. HOME MEDS CLARIFIED. DENIES NEEDS AT THIS TIME. PT BACK TO BED. CALL LIGHT, POSSESSIONS IN REACH. WILL CONTINUE TO PROVIDE CARE AND ASSESS PT UNTIL DAY RN ASSUMES CARE.
--- NOTE | 2020-04-13 15:03 | NUR ---
Echocardiogram completed.
--- NOTE | 2020-04-13 18:39 | NUR ---
SHE HAS WORN 6L HIGH FLOW OXYGEN ALL DAY. CONTINUOUS BIOX ON. SHE DESATTED TO 80'S ONCE THAT I AM AWARE OF. IT CAME BACK UP EASILY WITH DEEP BREATHING. SHE HAS HAD MULTIPLE C/O PAIN IN HER L RIB AREA AND IN HER R LEG. TRAMADOL ORDER WAS RECEIVED. SHE HAD A DOSE THIS AFTERNOON. A SED RATE WAS CHECKED PER HER REQUEST FOR . IT IS 63. KPAD AVAILABLE FOR THE PAIN ALSO.RESP PANEL SWAB SENT. HER LUNGS HAVE CRACKLES T/O.
[2020-04-13 18:42] LABS: Adenovirus Not Detected (NOT DETECT); Bordetella pertussis Not Detected (NOT DETECT); Chlamydophila pneumoniae Not Detected (NOT DETECT); Coronavirus 229E Not Detected (NOT DETECT); Coronavirus HKU1 Not Detected (NOT DETECT); Coronavirus NL63 Not Detected (NOT DETECT); Coronavirus OC43 Not Detected (NOT DETECT); Human Metapneumovirus Not Detected (NOT DETECT); Human Rhinovirus/Enterovirus Not Detected (NOT DETECT); Influenza A/2009-H1 Not Detected (NOT DETECT); Influenza A/H1 Not Detected (NOT DETECT); Influenza A/H3 Not Detected (NOT DETECT); Influenza B Not Detected (NOT DETECT); Mycoplasma pneumoniae Not Detected (NOT DETECT); Parainfluenza Virus 1 Not Detected (NOT DETECT); Parainfluenza Virus 2 Not Detected (NOT DETECT); Parainfluenza Virus 3 Not Detected (NOT DETECT); Parainfluenza Virus 4 Not Detected (NOT DETECT); Respiratory Syncytial Virus Not Detected (NOT DETECT); SARS-Cov-2 (COVID-19), BioFire Not Detected (NOT DETECT)
--- NOTE | 2020-04-14 04:23 | NUR ---
FIT SUMMARY ASSUMED CARE OF PT AT 1900. PT IS A/OX4, DENIES N/T IN EXTREMITES. HEART SOUNDS REGULAR, LUNG SOUNDS HAVE FINE CRACKLES T/O, PT ON 6L NC, DENIES SOB AT REST, PT ON CONTINUOS PULSE OX, PT SATURATION DROPS TO 85% WITH ACTIVIY. PT WORE HER CPAP T/O THE NIGHT. PT IS INDEPENTED TO THE BSC. URINE CLEAR AND YELLOW. PT C/O FEELING CONGESTED, HASPITALIST NOTIFIED AND FLONASE ORDERED PRN. PT C/O PAIN T/O THE NIGHT. MEDICATED PER EMAR. CALL LIGHT IN REACH, BED IN LOWEST POSTION.
[2020-04-14 06:22] LABS: BASOPHILS ABSOLUTE AUTO 0.07 K/mm3 (0.00-0.23); BASOPHILS PERCENT AUTO 0 % (0-2); EOSINOPHILS ABSOLUTE AUTO 0.01 K/mm3 (0.00-0.68); EOSINOPHILS PERCENT AUTO 0 % (0-6); Hematocrit 33.5 % (33.0-51.0); Hemoglobin 10.8 g/dL (11.5-16.0); IMMATURE GRAN ABSOLUTE AUTO 0.43 K/mm3 (0.00-0.10); IMMATURE GRAN PERCENT AUTO 2 % (0-1); LYMPHOCYTES ABSOLUTE AUTO 0.86 K/mm3 (0.84-5.20); LYMPHOCYTES PERCENT AUTO 3 % (21-46); MONOCYTES ABSOLUTE AUTO 1.47 K/mm3 (0.16-1.47); MONOCYTES PERCENT AUTO 6 % (4-13); Mean Corpuscular HGB 31.4 pg (26.0-34.0); Mean Corpuscular HGB Conc 32.2 g/dL (31.5-36.5); Mean Corpuscular Volume 97 fL (80-100); NEUTROPHILS ABSOLUTE AUTO 22.89 K/mm3 (1.96-9.15); NEUTROPHILS PERCENT AUTO 89 % (41-73); Platelet Count 235 K/mm3 (150-400); RDW Standard Deviation 54.2 fL (35.1-46.3); Red Blood Cell Count 3.44 M/mm3 (3.80-5.20); White Blood Cell Count 25.73 K/mm3 (4.00-11.30)
[2020-04-14 06:33] LABS: Anion Gap 6 mmol/L (6-16); Blood Urea Nitrogen 26 mg/dL (8-24); CO2, Blood 23 mmol/L (21-32); Calcium, Blood 9.3 mg/dL (8.5-10.1); Chloride, Blood 101 mmol/L (98-108); Creatinine, Blood 0.96 mg/dL (0.40-1.00); Glomerular Filtration Rate >60 (60-); Glucose, Blood 142 mg/dL (70-99); Phosphorus, Blood 2.6 mg/dL (2.5-4.9); Potassium, Blood 4.4 mmol/L (3.5-5.5); Sodium, Blood 130 mmol/L (136-145)
[2020-04-14 10:51] LABS: PCO2 Arterial 47.3 mmHg (35-45); PO2 Arterial 61.7 mmHg (80-100); pH Blood Arterial 7.31 (7.35-7.45)
--- NOTE | 2020-04-14 12:21 | NUR ---
ARRIVED TO UNIT AND ASSESSED PT THIS MORNING. FINE CRACKLES AUSCULATED T/O LUNGS. PT ON 8 L/MIN VIA CPAP. PT ALSO NOTED TO HAVE A HACKING COUGH, SPUTUM COLLECTED AND SENT TO LAB. PT APPEARED TO BECOME SOB WHEN TALKING AND HAD TO BE REMINDED TO FOCUS ON HER BREATHING BEFORE CONTINUING CONVERSATION. PT ALSO SHOWED DESATURATION OF OXYGEN LEVELS INTO 70'S TO 80'S WITH MINIMAL EXERTION. PT WOULD CONTINUE TO SILENT HER BIOX AND UNPLUG IT. PT ALSO REMOVED HER CPAP WITHOUT CALLING AND AMBULATED ALL THE WAY TO THE RESTROOM INSTEAD OF BSC. PT BECAME SYMPTOMATIC AND SATING IN THE 30'S. RT WAS CALLED AND PT WAS QUICKLY HOOKED UP TO AK WITH OXYGEN TURNED ALL THE WAY UP. OXYGEN LEVELS BEGAN TO RISE AGAIN BUT PT SHOWED MOMENTS OF CONFUSION AND SOB. BED ALARM WAS SET TO ALARM STAFF IF PT WAS TO GET UP AGAIN WITHOUT ASSISTANCE OR OXYGEN. CALLED AND SPOKE WITH BROOKS, ABG AND PULMONOLGY CONSULT ORDERED. CONSULTED WITH CHARGE NURSE AND WE AGREED PT SHOULD BE TRANSFERED TO A HIGHER LEVEL OF CARE. KENISHA PROVIDED ORDERS FOR PT TO BE TRANSFERED TO PCU. PT WAS TRANSFERED TO PCU VIA BED WITH LENORA CHEN AND I @ 1206. BEDSIDE REPORT GIVEN TO MATHIEU. SPOUSE WILL BE NOTIFIED OF TRANSFER.
--- NOTE | 2020-04-14 12:42 | NUR ---
ATTEMPTED TO CALL SPOUSE, WAS NOT ABLE TO GET IN CONTACT WITH HIM ABOUT PT BEING TRANSFERED.
--- NOTE | 2020-04-14 12:43 | NUR ---
ASSUMED CARE PT ALERT AND ORIENTED. VS STABLE. O2 SATS REMAIN ABOVE 90% ON CPAP WITH 15L BLEED IN. LS WHEEZES THROUGHOUT AND PT IS TACHYPNEIC. PT ORIENTED TO ROOM. PT EDUCATED TO CALL BEFORE AMBULATION. BED ALARM ON. WILL CONTINUE TO MONITOR CLOSELY.
--- NOTE | 2020-04-14 14:52 | NUR ---
UPDATE HR CONVERTED TO AFIB 120-140'S AT APPROXIMATELY [address] GUY CALLED AND NOTIFIED. NEW ORDERS PROVIDED. WILL CONTINUE TO MONITOR CLOSELY.
--- NOTE | 2020-04-14 15:14 | NUR ---
UPDATE 02 SATS SUSTAIN IN THE LOW 80'S ON HOME CPAP WITH 15L BLEED IN. RR IN THE MID 20'S. RT CALLED IN TO THE ROOM AND PT GIVEN BREATHING TX. PT INCREASINGLY CONFUSED AND UNABLE TO ANSWER ORIENTATION QUESTIONS. PT CHANGED OVER TO BIPAP. WILL CONTINUE TO MONITOR CLOSELY.
--- NOTE | 2020-04-14 16:40 | NUR ---
UPDATE PT ANXIOUS AND PULLING AT BIPAP. O2 SATURATION DECREASING TO LOW 70'S WHEN SHE PULLS THE BIPAP OFF. PT TAKES MINUTES TO RECOVER TO THE HIGH 80'S. RESPIRATIONS 20-30'S. RT IN TO ADJUST BIPAP SETTINGS. MONITORING CLOSELY.
--- NOTE | 2020-04-14 18:24 | NUR ---
UPDATE DR. DE IN TO SEE PT. PLANS FOR TRANSFER TO ICU FOR PRECEDEX AND CLOSEY MONITORING. WILL AWAIT TRANSFER.
--- NOTE | 2020-04-14 18:54 | NUR ---
PATIENT ARRIVED AT 1844 FROM PCU 03. PATIENT ON NON-REBREATHER. RT IN ROOM AT THIS TIME SETTING PATIENT BACK UP ON CPAP. PATIENT STARTED ON PRECEDEX AT 0.2 MCG/ KG/ HOUR. PATIENT ATTACHED TO ALL MONITORING EQUIPMENT. BED ALARM ON RECEIVED REPORT THAT PATIENT CAN BE CONFUSED AND ANXIOUS AT TIMES. BED LOW, CALL LIGHT IN REACH. WILL NOW GIVE REPORT TO ONCOMING PICKING BELT OPERATOR NURSE.
--- NOTE | 2020-04-14 19:00 | NUR ---
ASSUMED CARE ASSUMED CARE OF PATIENT. PT IS ON BIPAP 14/6, BUR 14, FIO2 60%. RR 20s. ORIENTED TO SELF, PLACE, EVENTS, AND TO MONTH/YEAR. PT IS FORGETFUL AT TIMES AND PULLS OFF BIPAP OCCASIONALLY. PRECEDEX INFUSING @ 0.2MCG/KG/HR. MONITOR SHOWS AFIB, RATE 110-140s. BP STABLE AT THIS TIME. SEE SHIFT ASSESSMENT FOR FULL ASSESSMENT.
[2020-04-14 21:57] LABS: Source, Urine Catheter
[2020-04-14 22:01] LABS: Appearance, Urine Hazy (Clear); Bilirubin, Urine Neg (Neg); Blood, Urine 1+ (Neg); Color, Urine Yellow (P-Yellow); Glucose Qualitative, Urine Neg (Neg); Ketones, Urine Neg (Neg); Leukocyte Esterase, Urine Neg (Neg); Nitrite, Urine Neg (Neg); Protein, Urine 2+ (Neg); Urobilinogen, Urine NORM (Normal)
[2020-04-14 22:16] LABS: Red Blood Cells, Urine 0-2 /hpf (0-2); Squamous Epithelial Cells Few /hpf (Few)
[2020-04-14 22:17] LABS: Granular Casts Rare /lpf (0)
[2020-04-14 22:18] LABS: Amorphous Light (0-Heavy); Bacteria Few /hpf
--- NOTE | 2020-04-15 02:15 | NUR ---
BIPAP/ANXIETY PT REQUESTING A BREAK FROM BIPAP- CHANGED TO 15L HFNC. CONFUSED CONVERSATION. PT KNOWS SHE IS IN THE HOSPITAL, BUT DOESN'T KNOW WHICH HOSPITAL. O2 SATS DECREASING TO LOW TO MID-80s. TACHYPNEIC. PT REFUSING TO PUT BIPAP BACK ON AND IS REQUESTING A SHOWER. INSTRUCTED PT THAT SHE IS NOT ABLE TO SHOWER AT THIS TIME D/T HER RESPIRATORY STATUS AND SHE BECOMES INCREASINGLY AGITATED AND ANXIOUS. MEDICATED WITH XANAX 0.5MG PO. PRECEDEX INCREASED TO 0.7MCG/KG/HR AT THIS TIME.
--- NOTE | 2020-04-15 03:00 | NUR ---
BIPAP PT CONTINUES TO REFUSE BIPAP. WHEN INFORMED THAT HER O2 SATS ARE DECREASED, SHE STATES "I DON'T CARE. I'M NOT WEARING IT." PT ASKS WHY SHE SHOULD WEAR IT AND WHEN INSTRUCTED THAT HYPOXIA CAN LEAD TO CARDIAC ARREST, SHE STATES "I DON'T CARE. I'M SUPPOSED TO BE A DNR ANYWAY." PT CONTINUES TO HAVE CONFUSED CONVERSATION AND INCREASED ANXIETY. PRECEDEX INCREASED TO 1MCG/KG/HR AT THIS TIME. WILL ATTEMPT BIPAP AGAIN AFTER ANXIETY LESSENS.
--- NOTE | 2020-04-15 03:22 | NUR ---
BIPAP RT AT BEDSIDE. PT WITH LESS ANXIETY NOTED. PLACED BACK ON BIPAP AT THIS TIME. PRECEDEX CONTINUES AT 1MCG/KG/HR.
[2020-04-15 03:30] LABS: Base Excess Venous 1.7 mmol/L; Bicarbonate Venous 25.6 mmol/L (24.0-30.0); PCO2 Venous 42.6 mmHg (38-42); PO2 Venous 86.5 mmHg (38-42)
[2020-04-15 03:46] LABS: BASOPHILS ABSOLUTE AUTO 0.05 K/mm3 (0.00-0.23); BASOPHILS PERCENT AUTO 0 % (0-2); EOSINOPHILS ABSOLUTE AUTO 0.03 K/mm3 (0.00-0.68); EOSINOPHILS PERCENT AUTO 0 % (0-6); Hematocrit 35.4 % (33.0-51.0); Hemoglobin 11.5 g/dL (11.5-16.0); IMMATURE GRAN ABSOLUTE AUTO 0.23 K/mm3 (0.00-0.10); IMMATURE GRAN PERCENT AUTO 1 % (0-1); LYMPHOCYTES ABSOLUTE AUTO 0.74 K/mm3 (0.84-5.20); LYMPHOCYTES PERCENT AUTO 4 % (21-46); MONOCYTES ABSOLUTE AUTO 0.67 K/mm3 (0.16-1.47); MONOCYTES PERCENT AUTO 3 % (4-13); Mean Corpuscular HGB 31.6 pg (26.0-34.0); Mean Corpuscular HGB Conc 32.5 g/dL (31.5-36.5); Mean Corpuscular Volume 97 fL (80-100); Mean Platelet Volume 11.8 fL (9.1-12.4); NEUTROPHILS ABSOLUTE AUTO 17.71 K/mm3 (1.96-9.15); NEUTROPHILS PERCENT AUTO 91 % (41-73); Platelet Count 296 K/mm3 (150-400); RDW Coefficient Variation 15.2 % (11.7-14.2); RDW Standard Deviation 54.2 fL (35.1-46.3); Red Blood Cell Count 3.64 M/mm3 (3.80-5.20); White Blood Cell Count 19.43 K/mm3 (4.00-11.30)
[2020-04-15 04:02] LABS: Albumin, Blood 2.8 g/dL (3.4-5.0); Anion Gap 5 mmol/L (6-16); Blood Urea Nitrogen 26 mg/dL (8-24); Bun/Creatinine Ratio 29.6 (12.0-20.0); CO2, Blood 27 mmol/L (21-32); Calcium, Blood 9.1 mg/dL (8.5-10.1); Chloride, Blood 105 mmol/L (98-108); Creatinine, Blood 0.88 mg/dL (0.40-1.00); Glomerular Filtration Rate >60 (60-); Glucose, Blood 166 mg/dL (70-99); Phosphorus, Blood 2.4 mg/dL (2.5-4.9); Potassium, Blood 4.5 mmol/L (3.5-5.5); Sodium, Blood 137 mmol/L (136-145)
--- NOTE | 2020-04-15 05:25 | NUR ---
REFUSING BIPAP PT TAKING OFF BIPAP- HFNC 15L ON AT THIS TIME. PT IS TACHYPNEIC AND O2 SATS QUICKLY DROP TO 78-80%. PT REFUSES TO PUT BIPAP BACK ON AND IS DEMANDING THAT SHE TALK TO HER . DYSPNEA WITH MINIMAL EXERTION. INSTRUCTED PT THAT SHE SHOULD NOT BE TALKING AT THIS TIME, BUT PT INSISTS ON USING PHONE. SHE QUICKLY BECAME AGITATED, THOUGH, AND WAS UNABLE TO MAKE CALL. PRECEDEX INCREASED TO 1.2MCG/KG/HR. WHEN RN REQUESTS PT TO PUT BIPAP BACK ON, PT STATES "JUST DO WHAT EVER YOU WANT TO." PT PLACED BACK ON BIPAP AT 0535.
--- NOTE | 2020-04-15 05:30 | NUR ---
CODE STATUS DISCUSSION RN DISCUSSED CODE STATUS WITH PATIENT SINCE O2 SATS ARE IN THE 70s AND PT IS REFUSING BIPAP. PT STATES THAT SHE WOULD NOT WANT TO BE ON A VENTILATOR, BUT THEN ALSO STATES THAT SHE WOULD WANT CPR IF NEEDED. PT CONTINUES WITH CONFUSED CONVERSATION AND FORGETFULNESS. REMAINS A FULL CODE AT THIS TIME.
--- NOTE | 2020-04-15 06:40 | NUR ---
SHIFT SUMMARY PT ON BIPAP 04/01, BUR 14, WITH FIO2 50% AT THIS TIME. SEVERAL PERIODS DURING SHIFT WHERE PT REFUSED BIPAP. PT ON HFNC 15L DURING THOSE TIMES, BUT SATS DECREASE TO HIGH-70s. MONITOR SHOWS AFIB, RATE 100-150s DURING SHIFT. BP STABLE. AFEBRILE. PRECEDEX INFUSED BETWEEN 0.2-1.2MCG/KG/HR DURING SHIFT- NOW INFUSING @ 1.2MCG/KG/HR. CONFUSED CONVERSATION. NOTED TO BE TALKING TO SELF OR POSSIBLY HAVING A HALLUCINATION- DOES NOT RESPOND TO RN WHEN ASKED WHO SHE IS TALKING TO. MEDICATED WITH XANAX 0.5MG PO X 1 DOSE. NAGY PLACED- 1500CC SLIGHLTY CLOUDY YELLOW URINE. WILL REPORT TO ONCOMING RN WHEN AVAILABLE.
--- NOTE | 2020-04-15 10:12 | NUR ---
ASSUMED CARE // UPDATE AT 0730 PT WAS IN BED ATTEMPTING TO PULL OF BIPAP, STATING SHE JUST WANTED TO RINSE HER MOUTH OUT. SHE WAS ORIENTED TO SELF, AND SURROUNDINGS (KNEW SHE WAS IN A HOSPITAL, NOT [facility] NECESSARILY). AFTER RINSING SHE LET US PUT THE BIPAP ON AND WAS CALM/COOPERATIVE. SHE HAD PRECEDEX ON AT 1.2 MCG/KG/HR. SHES IN AFIB, RATE WAS UP AND DOWN 105-130s. AROUND 0949-7967 PT HAD HER BIPAP OFF, AND PROCEEDED TO YELL AT ANYONE SHE SAW, PEOPLE WHO WERE TRYING TO TO HELP HER. PRECEDEX INCREASED TO 1.4 MCG/KG/HR. SHE YELLED AT ONE NURSE SAYING "LET ME USE YOUR PHONE, AND NO I AM NOT GOING TO EAT IT!". MAKING OTHER STATEMENTS LIKE, "I WILL GET YOU ALL BACK FOR THIS!", AND SHE WAS CALLING OUT FOR ALYSA, HER . WHEN ASKED WHERE SHE WAS - SHE REFUSED TO ANSWER. JUST KEPT YELLING FOR ALYSA. SHE IS VERY LABILE WITH HER MOOD/EMOTIONS. WHEN ASKED TO PUT THE BIPAP BACK ON (AT THIS POINT SHE HAD NO OXYGEN ON WHATSOEVER, AGAIN AROUND [id number]) SHE KEPT REFUSING AND WAS ATTEMPTING PUT HER ARMS UP LIKE SHE MAY BE GETTING READY TO "DEFEND HERSELF". WE CALLED DR. DE AND DUE TO HER CONFUSION/AGITATION, VERY PALE SKIN, AND THE FACT HER SATs WERE IN THE 70-80s, HE ORDERED 5MG HALDOL, RESTRAINTS, AND TO PUT THE BIPAP BACK ON. AFTER DOING THIS AROUND 0850, SECURITY WAS PRESENT, BUT IT WENT FAIRLY WELL SHE WAS PLACED IN SWB FOR HER UPPER EXTREMETIES AT 0850, SHE FOUGHT - KICKING AND PUNCHING MUCH SHE COULD. HR UP TO THE 160s. AFTER RESTRAINED, AND BIPAP PLACED ON HER - SHE STRUGGLED FOR A FEW MINUTES - BUT STARTED TO REST AND HER O2 SAT's GREATLY IMPROVED. PT IS UP AND DOWN, HR 110-140s, O2 SAT'S LOW 90s, AND IS NOW CURRENTLY ON THE AIRVO PER DR. DE. PT IS SLIGHTLY MORE CALM, BUT REMAINS CONFUSED - WILL SOMETIMES 'RAMP UP' AND IS AGITATED FOR A SHORT PERIOD OF TIME, BUT THEN TIRES OUT. SHE IS TRYING TO ESCAPE AT TIMES. BED LOW AND LOCKED. CALL LIGHT WITHIN REACH. AT BEDSIDE.
--- NOTE | 2020-04-15 12:33 | NUR ---
UPDATE AROUND 4226-4642 THE PT STARTED TO BECOME INCREASINGLY MORE AGITATED. TO THE POINT OF TRYING TO GET OUT OF BED AND LEAVE, KEPT YELLING AT HER TO "GET ME OUT OF HERE!". SHE WAS VIOLENTLY PULLING ON HER RESTRAINTS, AND VARIOUS CHORDS. SHE WAS ABLE TO GET HER HANDS ON HER AIRVO CANNULA AND RIPPED IT OFF, AND WHILE DOING SO IT "BROKE" (THE CANNULA PORTION). SHE WAS REFUSING EVERYTHING; WHILE SHE WAS EXTREEMLY DYSPNEIC AND PALE, YELLING AT EVERYONE, INCLUDING HER - WHO WAS TRYING TO HELP CALM HER DOWN. INSTEAD SHE JUST YELLED "STOP CHOCKING ME, YOU'RE CHOKING ME" WHEN HE WAS NO WHERE NEAR HER NECK. DR. DE, AYDIN (RT), WANDER SPAULDING, SRINATH, [facility], AND MYSELF WERE IN THE ROOM. WE GOT HER IN 4 POINT SOFT RESTRAINTS, GAVE HER A TOTAL OF 75 MCG OF FENTANYL (25 MCG WAS GIVEN EARLIER WHEN SHE WAS STARTING TO "HEAT UP", WITH NO RESPONSE DR. DE ORDERED 50 MORE MCG) ALONG WITH 4 MG OF ATIVAN. THESE WERE GIVEN AROUND 7948-9108. A FEW MINUTES LATER SHE CALMED DOWN QUICKLY, SHE ALLOWED US TO PUT ON A NONREBREATHER ON WHILE WE GOT HER A NEW AIRVO CANNULA. HER SATs BOUNCED BACK UP TO THE LOW 90s WITH NOT MUCH TROUBLE. AND DURING THE NEXT FEW MINUTES SHE FELL ASLEEP. DR. DE DISCUSSED STICKING WITH ATIVAN FOR SEDATION FROM NOW ON, AND TO DO CIWA PROTOCOL ON HER TO ENSURE HER SEDATION LEVEL - SHE IS REQUIRING THIS OXYGEN/SUPPORT AND HER CONFUSION BEING DETRIMENTAL TO HER TREATMENT. HAS BEEN EDUCATED ON CURRENT PLAN OF CARE, AND IS SUPPORTIVE OF KEEPING HER CALM WITH SEDATION WHILE SHE RECEIVES TREATMENT. PT'S AFIB RATE IS ALL OVER: 100-130s. PT IS ALSO HYPERTENSIVE BUT HAS O2 SATs IN LOW 90s. PT CURRENTLY RESTING WELL, CIWA <8.
--- NOTE | 2020-04-15 18:26 | NUR ---
UPDATE PT CONTINOUS TO HAVE FINE CRACKLES THROUGHOUT, AND BECAUSE SHE WASN'T ABLE TO HAVE HER PO LASIX THIS MORNING - I CALLED DR. DE AND HE WANTED TO GIVE HER 40 MG IV LASIX. GIVEN AT 1747. SHE HAS SINCE HAD 500 ML OF URINE OUTPUT (AFTER HAVING ABOUT 525 ML PRIOR). PT HAD BEEN ADEQUATELY SEDATED FOR MAJORITY OF DAY SINCE BEING GIVEN 4 MG ATIVAN, ONLY REQUIRING ADDITIONAL ATIVAN (2MG EACH) TWICE. WE DECIDED TO PUT HER BACK ON THE BIPAP 04/01, 50% FIO2 - TO PREVENT HYPERCAPNIA. THIS WAS DISCUSSED WITH KENISHA, SAYING - WE CAN CONTINUE BIPAP THERAPY OVERNIGHT TOLERATED, AND CHECK BLOOD GASSES IN THE MORNING TOMORROW. HE ALSO MENTIONED THAT WE CAN ALTERNATE WITH AIRVO IF NEEDED. BED LOW AND LOCKED. CALL LIGHT WITHIN REACH.
--- NOTE | 2020-04-15 19:31 | NUR ---
SHIFT SUMMARY PT CURRENTLY ON BIPAP 04/01, 50% FIO2 WITH PRECEDEX INFUSING AT 1.4 MCG/KG/HR. PT HAS REQUIRED ATIVAN PRN TO KEEP HER FROM RIPPING THE BIPAP (AND EARLIER - AIRVO) OFF. GOAL IS TO KEEP HER ON BIPAP TONIGHT, BUT IF NOT DR DE IS OKAY WITH THE AIRVO. VBG WILL BE DONE IN THE MORNING. PT GOT LASIX IV THIS EVENING AND HAS HAD GREAT URINE OUTPUT SINCE. SHE IS ADEQUETLY SEDATED/CALM AFTER HAVING TWO MAJOR EVENTS OF AGITATION, COMBATIVENESS AND HIGH LEVELS OF ANXIETY - TODAY. SEE PREVIOUS NOTES. HER PALE COLOR HAS IMPROVED SINCE SHE HAS BEEN SUSTAINED ON THE BIPAP. PT HAS HAD FINE CRACKLES THROUGHOUT SHIFT, BUT WHEN CALM HER SATs MAINTAIN IN THE LOW 90s. NO BM TODAY. BED LOW AND LOCKED. PT REMAINS IN THE RESTRAINTS (4 X SWB). WAS AT BEDSIDE FOR FIRST HALF OF DAY, BUT WENT HOME WHEN PT BECAME MORE UNDER CONTROL - WOULD LIKE A CALL WITH CHANGES.
--- NOTE | 2020-04-15 19:41 | NUR ---
INITAL SHIFT ASSESSMENT PT IS SEDATED WITH PRECEDEX AT 1.4MCG. SHE IS MOVING ABOUT IN BED WITH HER ARMS AND LEGS. WHICH ALL ALL RESTRAINED WITH SOFT RESTRAINTS. WITH ASSESSMENT PT BECAME MORE AGGITATED. SHE IS NOT ABLE TO FULLY SPEAK WITH BIPAP IN PLACE WELL SEDATION. HOWEVER SHE DOES SAY WORDS AND APPEARS TO BE ONLY ORIENTED TO SELF. OFF GOING RN STATES THIS HAS BEEN HER NORM FOR A FEW HOURS NOW. PT DOES APPEAR TO SETTLE SLIGHTLY WITH NO STIMULI. SHE HOWEVER DOES CON'T TO MOVE HER HEAD ABOUT AND PULL AGAINST WRIST RESTRAINTS EVEN AT REST. BIPAP WILL CON'T TO BE USED T/O SHIFT. OXYGEN SATS ARE FAIRLY LOW AT THIS TIME. SEE RT NOTES REGARDING BIPAP SETTING CHANGES T/O SHIFT. PT DOES HAVE AN ELEVATED HR WELL BP. WILL MONITOR AND TX NEEDED T/O SHIFT. HX OF A-FIB WITH RVR MD'S AWARE OF HR PER OFF GOING RN. NAGY CATH IN PLACE DRAINING CLEAR YELLOW URINE WITH GOOD OUPUT AT THIS TIME. PT HAS TWO PERIPHERAL IV'S TO RIGHT FA AND AC. BOTH ARE PATENT WITH CDI DRESSINGS. WILL CON'T TO MONITOR AND KEEP PT SAFE T/O REMAINDER OF SHIFT.
--- NOTE | 2020-04-15 20:12 | NUR ---
HR AND BP DISCUSSION WITH DR KENISHA COVARRUBIAS WAS CALLED REGARDING PT'S SUSTAINED ELEVED HR WELL BP. ORDERS WERE GIVEN PRN. WILL CON'T TO MONITOR AND CALL AGAIN IF FURTHER ORDERS ARE NEEDED FOR BP AND HR.
--- NOTE | 2020-04-15 23:45 | NUR ---
SHIFT UPDATE PT CON'T TO NOT TOLERATE ANY CARE WITHOUT SEVERE AGGITATION. SHE WAS TURNED AT THIS TIME AND ATIVAN WAS GIVEN IV PRIOR TO TURN. PT CON'T TO BE IN 4 POINT RESTRAINTS. WILL ATTEMPT TO REMOVE ANKLES IF PT KEEPS HER LEGS STILL. PRECEDEX GTT CON'T TO RUN ORDERED. HR CON'T TO BE IN THE 130'S AND TOUCHES 170'S, BUT DOES NOT SUSTAIN. BP IS ELEVATED, BUT NOT MORE THEN NORM. ORAL CARE DONE AT THIS TIME. PT DID FOLLOW COMMANDS TO OPEN HER MOUTH. SHE WAS ONLY OFF BIPAP FOR TWO MINUTES AND HER OXYGEN SATS DROPPED TO LOW 80'S AND RR INCREASE TO THE 50'S ALL AFTER THE ATIVAN HAD BEEN GIVEN. WILL CON'T TO MONITOR AND KEEP PT SAFE T/O REMAINDER OF SHIFT.
[2020-04-16 03:26] LABS: BASOPHILS ABSOLUTE AUTO 0.08 K/mm3 (0.00-0.23); BASOPHILS PERCENT AUTO 1 % (0-2); EOSINOPHILS ABSOLUTE AUTO 0.01 K/mm3 (0.00-0.68); EOSINOPHILS PERCENT AUTO 0 % (0-6); Hematocrit 36.7 % (33.0-51.0); Hemoglobin 12.2 g/dL (11.5-16.0); IMMATURE GRAN ABSOLUTE AUTO 0.31 K/mm3 (0.00-0.10); IMMATURE GRAN PERCENT AUTO 2 % (0-1); LYMPHOCYTES ABSOLUTE AUTO 1.18 K/mm3 (0.84-5.20); LYMPHOCYTES PERCENT AUTO 7 % (21-46); MONOCYTES PERCENT AUTO 5 % (4-13); Mean Corpuscular HGB 31.1 pg (26.0-34.0); Mean Corpuscular HGB Conc 33.2 g/dL (31.5-36.5); Mean Corpuscular Volume 94 fL (80-100); Mean Platelet Volume 11.3 fL (9.1-12.4); NEUTROPHILS PERCENT AUTO 85 % (41-73); NRBC ABSOLUTE 0.02 K/mm3 (0.00-0.02); NRBC Auto 0.1 /100 WBC (0.0-0.2); Platelet Count 317 K/mm3 (150-400); RDW Coefficient Variation 15.5 % (11.7-14.2); RDW Standard Deviation 53.1 fL (35.1-46.3); Red Blood Cell Count 3.92 M/mm3 (3.80-5.20); White Blood Cell Count 16.78 K/mm3 (4.00-11.30)
[2020-04-16 03:44] LABS: Albumin, Blood 2.7 g/dL (3.4-5.0); Anion Gap 3 mmol/L (6-16); Blood Urea Nitrogen 28 mg/dL (8-24); Bun/Creatinine Ratio 34.9 (12.0-20.0); CO2, Blood 30 mmol/L (21-32); Calcium, Blood 8.5 mg/dL (8.5-10.1); Chloride, Blood 104 mmol/L (98-108); Glomerular Filtration Rate >60 (60-); Glucose, Blood 184 mg/dL (70-99); Phosphorus, Blood 2.3 mg/dL (2.5-4.9); Potassium, Blood 3.9 mmol/L (3.5-5.5); Sodium, Blood 137 mmol/L (136-145)
--- NOTE | 2020-04-16 05:45 | NUR ---
SHIFT SUMMARY PT CON'T TO HAVE NO CHANGES FROM BASELINE. SHE CON'T TO NEED TO HAVE ATIVAN PRN WELL PRECEDEX GTT AT 1.4MCG. PT BECOMES VERY AGGITATED WITH ANY CARE THRASHING ABOUT IN BED AND SCREAMING HELP ME. SHE CANNOT BE CONSOLED AND CON'T TO CRY OUT THAT SHE NEEDS HELP. SHE IS TOLERATING TURNING AND WILL REST AFTER TURINING. WHEN ORAL CARE IS PERFORMED PT IS AT TIMES FOLLOWING DIRECTIONS. 4 POINT SOFT WRIST RESTRAINTS CON'T TO BE IN PLACE WITH GOOD CIRCULATION AND NO SKIN ISSUES. NAGY CATH CON'T TO BE IN PLACE DRAINING CLEAR YELLOW URINE WITH GOOD OUTPUT. HR CON'T TO BE IN THE LOW 100'S SINCE THE ADMINISTRATION OF IV CARDIZEM. WHEN PT IS AGGITATED HR INCREASES, BUT ONLY TO 130'S NOW. BP IS ELEVATED AT TIMES, BUT OVERALL HAS NOT CHANGED FROM BASELINE. WILL CON'T TO MONITOR AND KEEP PT SAFE TILL REPORT TO ONCOMING RN.
--- NOTE | 2020-04-16 07:05 | NUR ---
ASSUMED CARE RECEIVED REPORT FROM JASSON MCKEE. PT IS ASLEEP/SEDATED, PRECEDEX INFUSING AT 1.4 MCG/KG/HR. SHE HAS BIPAP ON 04/01, 40% - SATs LOW 90s. CONTINUOUS TO BE IN AFIB, RATE 100-130s. BP STABLE AT 158/99, 112. RR IN LOW 30s. PT IN FOUR POINT SOFT RESTRAINTS TO ALL EXTREMETIES. BED LOW AND LOCKED. FAN IS BLOWING ON PT.
--- NOTE | 2020-04-16 08:22 | NUR ---
UPDATE PT OCCASSIONALLY BREAKS THROUGH SEDATION AND STARTS BECOMING AGITATED, AND MOANING/YELLING OUT. SHE DOESN'T RESPOND WITH ANY WORDS AND KEEPS HER EYES CLOSED. SHE ONLY SLIGHTLY MOVES, BUT HER RR GOES UP INTO THE 40s, AND SHE DOES NOT OXYGENATE WELL, SATs DROP INTO THE 80s. I GAVE HER 2 MG OF ATIVAN TO HELP KEEP HER CALM, BUT HER RR REMAINS IN THE LOW 30s. BED LOW AND LOCKED.
--- NOTE | 2020-04-16 12:20 | NUR ---
UPDATE DISCUSSION WITH DR. DE: -CHANGE LASIX AND AZITHROMYCIN PO TO IV. -BIPAP ^ 15L OXYMIZER (DONE AT 0945) -STOP USING ATIVAN, IF PT CAN SWALLOW WHEN AWAKE MAYBE TRY LIBRIUM. AFTER MORE DISCUSSION AND REALIZING PT WAS PROBABLY NOT GOING TO BE ABLE TO SWALLOW ANYTIME SOON, HE DECIDED TO GIVE ZYPREXA 5 MG IM. WHICH HAS BEEN VERY EFFECTIVE. ZYPREXA GIVEN AT 1030. -BECAUSE PRECEDEX HAS BEEN AT MAX DOSE AND SEEMINGLY NOT HAVING ANY TRUE EFFECT, DR. DE WANTS ME TO TITRATE DOWN. AT 1044 PRECEDEX DECREASED TO 1.0 MCG/KG/HR. AND AT 1220 (NOW) IT WAS FURTHER DECREASED TO 0.7 MCG/KG/HR. WHEN PT IS AWAKE SHE IS VERY CONFUSED, ANXIOUS/AGITATED, AND ONLY ORIENTED TO SELF. SHE WILL SCREAM OUT "HELP ME", BUT MAINLY WILL JUST MOAN AND GROAN. SHE CAN'T SAY WHY SHE NEEDS HELP, OR WHAT SHE NEEDS HELP WITH, BUT KEEPS SAYING THE SAME THINGS. SHE WILL MOVE AROUND RESTLESSLY, PULLING ON RESTRAINTS, BUT SHE TIRES QUICKLY. THE ZYPREXA HAS HELPED TREMENDOUSLY AND THE PT IS ADEQUATLY SEDATED, BUT AROUSES TO NOXIOUS STIMULI OR LOUD VERBAL STIMULI. HEMODYNAMICS HAVE IMPROVED OVERTIME. HR RANGE IS 100-130s, AND BP ISN'T QUITE HYPERTENSIVE. BED LOW AND LOCKED.
--- NOTE | 2020-04-16 19:00 | NUR ---
INITAL SHIFT ASSESSMENT PT IS FAIRLY SOMMULENT WITH NO STIMULI. HOWEVER SHE WAKES EASILY TO VERBAL STIMULI. AT THIS TIME SHE WILL SPEAK WORDS AND ANSWER SOME QUESTIONS, BUT NOT AN ENTIRE SENTENCE. SHE IS FAIRLY AGGITATED WITH CARE, BUT SEEMS TO BE COOPERATIVE. VITALS ARE STABLE. HER HR HOWEVER IS ELEVATED WILL GIVE CARDIZEM IV NEEDED T/O SHIFT TO DECREASE HR. 130'S TO 170'S. BP IS LOW BUT HOLDING. 11L OXYMIZER IN PLACE WITH INCREASED RR AT REST. VERY LABORED BREATHING, BUT OXYGEN SATS ARE HOLDING IN THE LOW 90'S. WILL ATTEMPT TO PLACE BIPAP. AT THIS TIME PT IS SHAKING HER HEAD NO TO THE BIPAP. PT DOES HAVE BILATERAL WRIST RESTRAINTS IN PLACE SOFT. SHE DOES PULL AGAINST THEM AND GRABS WHATEVER SHE CAN IN HER HANDS AND PULLS. NAGY CATH IN PLACE AND TUCKED UNDER HER LEG TO AVOID HER PULLING ON IT. DRAINING CLEAR YELLOW URINE. PT DOES HAVE TKO RUNNING INTO IV IN RIGHT AC PERIPHERAL IV. PT HAS TWO PERIPHERAL IV'S CDI AND PATENT. SEE EMAR FOR ALL ADMINISTERED MEDICATIONS.
--- NOTE | 2020-04-16 19:20 | NUR ---
SHIFT SUMMARY PT IS CURRENTLY ON 12 L OXYMIZER, SAT'ing MID-90s, RR UPPER 20s-LOWER 30s. . SHE IS RESPONDING TO VERBAL STIMULI, OPENING HER EYES WHEN AROUSED, AND IS ABLE TO ANSWER SIMPLE QUESTIONS. SHE IS ORIENTED TO SELF ONLY, THOUGH. OFTEN SHE WILL STILL CALL OUT/YELL "HELP ME", AND MOAN/GROAN. BUT OTHER TIMES SHE IS ABLE TO EXPRESS THAT SHE NEEDED TO PEE, WHEN I TOLD HER ABOUT HER CATHETER SHE SAID "OH OKAY" AND UNDERSTOOD WHAT I SAID AND WHAT THAT MEANT. I ASKED HER IF I COULD CLEAN HER MOUTH AND SHE SAID "YES" AND SHOWED ME HER TEETH SO I COULD BRUSH THEM. SHE MOVES AROUND IN BED RESTLESSLY AT TIMES, BUT WE WERE ABLE TO GET BETTER SEDATION LEVELS TODAY WITH THE PRN ZYPREXA VS YESTERDAY WHEN SHE GOT ATIVAN, AND FENTANYL. MAJORITY OF DAY SHE WAS CALM AND RESTING. SHE GOT A BATH TODAY. ADEQUATE URINE OUTPUT. SHE REMAINS IN AFIB, HR RANGE OF 100-140, BP WAS MUCH BETTER TODAY THAN YESTERDAY. HER HEART WENT UP TO 160-170 BEATS PER MINUTE FOR A FEW SECONDS BUT VERY QUICKLY CAME BACK DOWN TO A STEADY RATE. SHE IS NOW ONLY IN SWB RESTRAINTS X 2 UPPER EXTREMETIES. NOT KICKING MUCH. I TRIED PUTTING HER FEET IN THE BOOTS TO PREVENT HER FOOT DROP FROM GETTING WORSE, BUT THEY GAVE HER ANXIETY AND MADE HER AGITATED, THEY MAY BE GIVING HER PAIN. I UPDATED THIS EVENING AND HE TOLD ME SHE HAS HAD ISSUES WITH NEUROPATHY IN THAT FOOT/LEG. SO I LEFT THEM OFF. BED IS LOW AND LOCKED.
[2020-04-17 03:41] LABS: Hematocrit 34.9 % (33.0-51.0); Hemoglobin 11.4 g/dL (11.5-16.0); Mean Corpuscular HGB 31.5 pg (26.0-34.0); Mean Corpuscular HGB Conc 32.7 g/dL (31.5-36.5); Mean Corpuscular Volume 96 fL (80-100); Mean Platelet Volume 11.5 fL (9.1-12.4); Platelet Count 344 K/mm3 (150-400); RDW Coefficient Variation 16.2 % (11.7-14.2); RDW Standard Deviation 56.8 fL (35.1-46.3); Red Blood Cell Count 3.62 M/mm3 (3.80-5.20); White Blood Cell Count 15.63 K/mm3 (4.00-11.30)
[2020-04-17 03:58] LABS: Albumin, Blood 2.5 g/dL (3.4-5.0); Anion Gap 4 mmol/L (6-16); Blood Urea Nitrogen 31 mg/dL (8-24); Bun/Creatinine Ratio 42.8 (12.0-20.0); CO2, Blood 29 mmol/L (21-32); Calcium, Blood 8.4 mg/dL (8.5-10.1); Chloride, Blood 109 mmol/L (98-108); Creatinine, Blood 0.72 mg/dL (0.40-1.00); Glomerular Filtration Rate >60 (60-); Glucose, Blood 147 mg/dL (70-99); Phosphorus, Blood 3.2 mg/dL (2.5-4.9); Potassium, Blood 3.6 mmol/L (3.5-5.5); Sodium, Blood 142 mmol/L (136-145)
--- NOTE | 2020-04-17 05:49 | NUR ---
SHIFT SUMMARY PT CON'T TO IMPROVE SHIFT PROGRESSES. THIS AM SHE WAS ABLE TO SWALLOW PILLS WHOLE WITH WATER. COUGH IS BECOMING STRONGER AND MORE LOOSE SOUNDING, BUT NOT PRODUCTIVE OF YET. HER VITALS ARE STABLE HOWEVER SHE DOES HAVE AN ELEVATED HR AND CON'T TO HAVE CARDIZEM IV PUSH WITH GOOD SHORT TERM RESULTS. PT IS ON 10L OXYMISER AND CON'T TO HAVE SATS IN THE MID 90'S. NAGY CATH IN PLACE WITH GOOD OUTPUT. PT HAS CALL LIGHT IN REACH AND HAS BEEN REORIENTED TO USE. WILL CON'T TO MONTIOR AND KEEP PT SAFE T/O REMAIDER OF SHIFT.
--- NOTE | 2020-04-17 08:59 | NUR ---
PT'S HR REMAINS REMAINS IN A-FIB RVR WITH RATES 140'S-180'S. PRN DILTIAZEM AND SCHEDULED LASIX GIVEN WITH NO IMPROVEMENT. PT IS RESTLESS AND A LITTLE AGITATED, PRN ZYPREXA GIVEN TO TRY AND RELAX PT AND SEE IF HR IMPROVES. DR DING NOTIFIED OF PT'S HR, NO NEW ORDERS AT THIS TIME.
--- NOTE | 2020-04-17 11:29 | NUR ---
REASSESSMENT PT IS ALERT AND ORIENTED, FOLLOWING COMMANDS. DIET WAS ADVANCED TO CARDIAC FOR LUNCH, PT TOLERATING WATER WITH NO PROBLEMS. PT REMAINS ON 10L OXYMIZER WITH EXP WHEEZES NOTED T/O. PT REMAINS IN A-FIB RVR WITH RATES 140'S-180'S. ORDERS RECEIVED FOR CARDIZEM GTT, WHICH WAS INITIATED. BP'S REMAIN STABLE WITH INFUSION. LILO IS HAVING ADEQUATE OUTPUT. DR CASE AND DR DING UPDATED PT AND SPOUSE OF CURRENT TREATMENT PLAN.
--- NOTE | 2020-04-17 18:34 | NUR ---
SHIFT SUMMARY PT IS ALERT, ORIENTEDx3, ANXIOUS AT TIMES, NO LONGER AGITATED THIS AFTERNOON. HR HAS IMPRROVED TO 110'S-130'S ON CARDIZEM AT 20MG. BLOOD PRESSURES HAVE BEEN STABLE WITH TITRATION. PT REMAINS ON 10L OXYMIZER AND IS MAINTAINING SPO2 >92%. SHE IS TACHYPNIC AND LABORED AT REST. PT'S COUGH IS PRODUCTIVE AND SHE WAS STARTED ON MUCINEX TODAY. PT HAS BEEN ABLE TO ASSIST/SELF ADJUST HERSELF IN BED TODAY. OTHER VITALS HAVE REMAINED STABLE. PT HAS HAD AN APPROPRIATE AMOUNT OF URINE OUR AFTER IV LASIX.
--- NOTE | 2020-04-17 19:00 | NUR ---
ASSUMED CARE NOTE: PT IS ALERT AND ORIENTEDX3, ABLE TO FOLLOW COMMANDS AND COMMUNICATE NEEDS. PT IS ON 10L OF 02 VIA OXYIMIZER, SPO2 ABOVE 90% EXP WHEEZING T/O. PT IS IN AFIB WITH HR BETWEEN 90-135, CARDIZEM AT 20MG/HR. VITALS STABLE. PT C/O PAIN, GENERAL. LILO CHANDRA, DRAINING TO GRAVITY. WILL CONTINUE TO MONITOR PT T/O SHIFT.
--- NOTE | 2020-04-18 01:02 | NUR ---
PT IS CONFUSED, CALLS OUT FOR HELP THEN CANNOT RECALL WHY SHE CALLED. PT TAKING OFF OXYGEN. PT WAS REORIENTED AND OXYGEN WAS PLACED BACK ON. PT HAS NOT NOT BEEN ABLE TO SLEEP, DECLINES MELATONIN AT THIS TIME.
[2020-04-18 03:51] LABS: Hematocrit 33.2 % (33.0-51.0); Hemoglobin 10.5 g/dL (11.5-16.0); Mean Corpuscular HGB 31.2 pg (26.0-34.0); Mean Corpuscular HGB Conc 31.6 g/dL (31.5-36.5); Mean Corpuscular Volume 99 fL (80-100); Mean Platelet Volume 11.4 fL (9.1-12.4); NRBC ABSOLUTE 0.02 K/mm3 (0.00-0.02); NRBC Auto 0.1 /100 WBC (0.0-0.2); Platelet Count 343 K/mm3 (150-400); RDW Coefficient Variation 16.4 % (11.7-14.2); RDW Standard Deviation 58.3 fL (35.1-46.3); Red Blood Cell Count 3.37 M/mm3 (3.80-5.20); White Blood Cell Count 15.81 K/mm3 (4.00-11.30)
--- NOTE | 2020-04-18 04:02 | NUR ---
PT WORK OF BREATHING INCREASED, RR IN THE 30'S. PT PLACED ON BIPAP WITH SETTINGS AT 14/6, FiO2 OF 40% SPO2 ABOVE 90%
[2020-04-18 04:11] LABS: Albumin, Blood 2.6 g/dL (3.4-5.0); Anion Gap 5 mmol/L (6-16); Blood Urea Nitrogen 29 mg/dL (8-24); CO2, Blood 29 mmol/L (21-32); Calcium, Blood 8.4 mg/dL (8.5-10.1); Chloride, Blood 105 mmol/L (98-108); Creatinine, Blood 0.94 mg/dL (0.40-1.00); Glomerular Filtration Rate >60 (60-); Glucose, Blood 112 mg/dL (70-99); Phosphorus, Blood 3.1 mg/dL (2.5-4.9); Potassium, Blood 3.4 mmol/L (3.5-5.5); Sodium, Blood 139 mmol/L (136-145)
--- NOTE | 2020-04-18 05:49 | NUR ---
SHIFT SUMMARY: PT CONTINUES TO BE CONFUSED AT TIMES, HOWEVER IS ABLE TO COMMUNICATE NEEDS. PT WAS ON BIPAP FOR AN HOUR, DUE TO INCREASED SOB. PT IS CURRENTLY ON 10L OF 02 VIA OXYMIZER, SPO2 ABOVE 95% CARDIZEM DRIP TITRATED DOWN TO 5MG/HR HR BETWEEN 80-110. BP STABLE. PT HAS NO SLEPT MUCH THIS SHIFT, MELATONIN WAS GIVEN PER ORDER WITH LITTLE EFFECT. PT GIVEN TESSALON PERLES PER EMAR FOR COUGH. NAGY IS PATNET DRAINING CLEAR YELLOW URINE. PT HAS BEEN REPOSITIONING SELF T/O SHIFT. WILL CONTINUE TO MONITOR PT UNTIL REPORT IS GIVEN TO ONCOMING SHIFT.
--- NOTE | 2020-04-18 09:25 | NUR ---
PT RESTING IN BED. WILL DOZED TO SLEEP WHEN UNINTERUPTED. AROUSES FROM SLEEP EASILY. PT GETS SOB WITH EXERTION. HAS HARSH COUGH. ON CARDIZEM GTT FOR HR CONTROL. PT IS ABLE TO EAT BREAKFAST BY HERSELF WITHOUT DIFFICULTY. AT BEDSIDE NOW, NO SIGN OF DISTRESS.
--- NOTE | 2020-04-18 18:46 | NUR ---
SUMMARY PT RESTING IN BED. A/O X4 ALL DAY. A LITTLE FORGETFUL AT TIMES. OXYGEN WAS BETWEEN 5-8L OXYMIZER TODAY. GOT UP TO CHAIR WITH PT THIS AFTERNOON. SPO2 DIPPED TO 87% WHILE ON 5L OXYMIZER THEREFORE HAD TO GO BACK UP TO 8L WHILE UP IN CHAIR. PT WAS ABLE TO BRUSH HER OWN HAIR. DECLINED BED BATH THIS AFTERNOON. HAS BEEN OFF CARDIZEM GTT TODAY AND TAKING PO CARDIZEM. HR WILL INCREASE WITH ACTIVITY TO 130'S BUT DOES NOT SUSTAIN. CALL LIGHT IN REACH AND HAS BEEN USING APPROPRIATELY. NO SIGN OF DISTRESS.
--- NOTE | 2020-04-18 19:00 | NUR ---
CARE ASSUMPTION PT A&O X4, ENGAGES IN CONVERSATION, ANSWERS QUESTIONS APPROPRIATELY. PT SITTING UP IN BED, ON 8L OXYMIZER. HARSH COUGH PRODUCING YELLOW/WHITE SPUTUM. MONITOR SHOWS A FIB, HR 110'S-140'S. PRN CARDIZEM GIVEN PER EMAR. NAGY CATHETER DRAINING CLEAR, YELLOW URINE. PT C/O OF SHOULDER/NECK PAIN. MEDICATED WITH TYLENOL PER EMAR. CALL LIGHT WITHIN REACH. WILL CONTINUE TO MONITOR.
[2020-04-19 03:34] LABS: Hematocrit 33.9 % (33.0-51.0); Hemoglobin 10.5 g/dL (11.5-16.0); Mean Corpuscular HGB 30.5 pg (26.0-34.0); Mean Corpuscular Volume 99 fL (80-100); Mean Platelet Volume 11.5 fL (9.1-12.4); NRBC ABSOLUTE 0.02 K/mm3 (0.00-0.02); NRBC Auto 0.1 /100 WBC (0.0-0.2); Platelet Count 310 K/mm3 (150-400); RDW Coefficient Variation 16.3 % (11.7-14.2); RDW Standard Deviation 59.1 fL (35.1-46.3); Red Blood Cell Count 3.44 M/mm3 (3.80-5.20); White Blood Cell Count 19.25 K/mm3 (4.00-11.30)
[2020-04-19 03:55] LABS: Albumin, Blood 2.4 g/dL (3.4-5.0); Albumin/Globulin Ratio 0.7 (0.8-1.8); Bilirubin, Total 0.5 mg/dL (0.1-1.0); Bun/Creatinine Ratio 21.4 (12.0-20.0); Calcium, Blood 8.1 mg/dL (8.5-10.1); Creatinine, Blood 1.12 mg/dL (0.40-1.00); Globulin, Blood 3.6 g/dL (2.2-4.0); Magnesium, Blood 2.5 mg/dL (1.6-2.4); Phosphorus, Blood 3.8 mg/dL (2.5-4.9); Potassium, Blood 4.3 mmol/L (3.5-5.5)
--- NOTE | 2020-04-19 05:04 | NUR ---
CONVERT TO A FLUTTER MONITOR SHOWS PT CONVERTED FROM A FIB, HR 90'S TO A FLUTTER HR 140'S AT APPROX 01:05. PT GIVEN PRN CARDIZEM PER EMAR. WILL CONTINUE TO MONITOR.
[2020-04-19 05:23] LABS: BASOPHILS PERCENT MAN 0 % (0-2); EOSINOPHILS ABSOLUTE MAN 0.38 K/mm3 (0.00-0.68); EOSINOPHILS PERCENT MAN 2 % (0-6); LYMPHOCYTES ABSOLUTE MAN 3.65 K/mm3 (0.84-5.20); LYMPHOCYTES PERCENT MAN 19 % (21-46); METAMYELOCYTE ABSOLUTE MAN 0.19 K/mm3 (0.00-0.00); METAMYELOCYTE PERCENT MAN 1 % (0-0); MONOCYTES ABSOLUTE MAN 0.96 K/mm3 (0.16-1.47); MONOCYTES PERCENT MAN 5 % (4-13); MYELOCYTE ABSOLUTE MAN 0.19 K/mm3 (0.00-0.00); MYELOCYTE PERCENT MAN 1 % (0-0); NEUTROPHILS ABSOLUTE MAN 13.86 K/mm3 (1.96-9.15); SEG NEUTROPHILS PERCENT MAN 72 % (41-73); TOTAL CELLS COUNTED 100
--- NOTE | 2020-04-19 06:22 | NUR ---
END OF SHIFT SUMMARY PT A&O X3, OCCASIONALLY FORGETFUL. USES CALL LIGHT AND ANSWERS QUESTIONS APPROPRIATELY. SP02 >90% ON 6L OXYMIZER WHILE AWAKE. PT WORE BIPAP OFF AND ON T/O SHIFT WHILE SLEEPING. PT HAS PRODUCTIVE, HARSH COUGH PRODUCING YELLOW/WHITE SPUTUM. PT CONVERTED FROM A FIB, HR 90'S TO A FLUTTER 140'S. 30 MG CARDIZEM PO GIVEN PER EMAR WITH NO IMPROVEMENT. NOTIFIED SALVADOR HAINES WITH NEW ORDERS FOR 5MG IV LOPRESSOR AND GIVE 0900 SCHEDULED CARDIZEM NOW. NAGY CATHETER DRAINING DARK YELLOW URINE. PT C/O OF NECK/ARM PAIN. APPLIED HEATING PAD AND MEDICATED WITH TYLENOL PER EMAR WITH IMPROVMENT. WILL CONTINUE TO MONITOR UNTIL END OF SHIFT.
--- NOTE | 2020-04-19 10:12 | NUR ---
PT RESTING IN BED. PT IS A/O X4. HR WAS ELEVATED THIS AM BUT HAS IMPROVED AFTER AM CARDIZEM AND XANAX. ON [address]L [address] YUEN AND DR. CASE IN THIS AM. OK FOR PCU STATUS. AT BEDSIDE NOW. NO SIGN OF DISTRESS.
--- NOTE | 2020-04-19 16:15 | NUR ---
PT BEING TRANSFERED OUT TO PCU 9. REPORT GIVEN TO ELYSIA SPAULDING. NO SIGN OF DISTRESS.
--- NOTE | 2020-04-19 17:39 | NUR ---
SHIFT SUMMARY: PT TRANSFER FROM ICU IN NO ACUTE DISTRESS. PT ABLE TO STAND AND TRANSFER TO PCU BED INDEPENDENTLY, PLACED ON TELEMETRY AND FOUND TO BE IN AFIB IN THE 90'S. PT RESTING QUIETLY IN ROOM WITH LIGHTS LOW. WILL CONTINUE TO MONITOR AND TREAT ACCORDINGLY UNTIL CHANGE OF SHIFT.
--- NOTE | 2020-04-19 19:30 | NUR ---
RECEIVED BEDSIDE REPORT FROM ELYSIA SPAULDING, ASSUMED CARE OF PT. PT A&O X4. SITTING UP IN BED COMFORTABLY, MILD DYSPNEA WITH CONVERSATION, NO ACUTE RESP DISTRESS. O2 @5L/M VIA OXYMIZER ON PT. CALL LIGHT WITHIN REACH
--- NOTE | 2020-04-20 05:36 | NUR ---
SHIFT SUMMARY: PT SLEPT ON AND OFF THROUGHOUT SHIFT. ON BIPAP @2200, TOLERATED WELL. PT EXPERIENCED MILD EPISODE OF DYSPNEA/COURSE COUGHING AROUND 0430, HR INCREASED TO 120s,AFIB. PRN CARDIZEM GIVEN WITH GOOD RESULTS, HR IN 80s AT THIS TIME. PLACED ON OXYMIZER 6L/M @ 5AM.LUNG SOUNDS CONTINUE TO HAVE EXP WHEEZES THROUGHOUT, COUGHING UP THICK PHLEM. OXYMIZER ON @6L/M. PT RESTING COMFORTABLY AT THIS TIME, WILL CONTINUE TO MONITOR
--- NOTE | 2020-04-20 07:47 | NUR ---
ASSUMING CARE OF PT, RECEIVED REPORT FROM JASSON QUEZADA. PT RESTING IN BED WITH EYES CLOSED, RESPIRATIONS EVEN AND UNLABORED, CONTINUES 94% AT 6L/MIN VIA OXYMIZER. CALL LIGHT WITHIN REACH.
[2020-04-20 08:59] LABS: Hemoglobin 10.9 g/dL (11.5-16.0); Mean Corpuscular HGB 31.6 pg (26.0-34.0); Mean Corpuscular HGB Conc 32.1 g/dL (31.5-36.5); Mean Corpuscular Volume 99 fL (80-100); Mean Platelet Volume 11.6 fL (9.1-12.4); Platelet Count 251 K/mm3 (150-400); RDW Coefficient Variation 16.5 % (11.7-14.2); Red Blood Cell Count 3.45 M/mm3 (3.80-5.20); White Blood Cell Count 16.72 K/mm3 (4.00-11.30)
[2020-04-20 09:22] LABS: BASOPHILS PERCENT MAN 0 % (0-2); EOSINOPHILS PERCENT MAN 3 % (0-6); LYMPHOCYTES ABSOLUTE MAN 2.34 K/mm3 (0.84-5.20); LYMPHOCYTES PERCENT MAN 14 % (21-46); METAMYELOCYTE ABSOLUTE MAN 0.33 K/mm3 (0.00-0.00); METAMYELOCYTE PERCENT MAN 2 % (0-0); MONOCYTES PERCENT MAN 6 % (4-13); MYELOCYTE ABSOLUTE MAN 0.66 K/mm3 (0.00-0.00); MYELOCYTE PERCENT MAN 4 % (0-0); NEUTROPHILS ABSOLUTE MAN 11.87 K/mm3 (1.96-9.15); SEG NEUTROPHILS PERCENT MAN 71 % (41-73); TOTAL CELLS COUNTED 100
[2020-04-20 09:29] LABS: Albumin, Blood 2.4 g/dL (3.4-5.0); Anion Gap 4 mmol/L (6-16); Blood Urea Nitrogen 19 mg/dL (8-24); Bun/Creatinine Ratio 17.8 (12.0-20.0); CO2, Blood 27 mmol/L (21-32); Calcium, Blood 9.1 mg/dL (8.5-10.1); Chloride, Blood 106 mmol/L (98-108); Creatinine, Blood 1.07 mg/dL (0.40-1.00); Glomerular Filtration Rate 55 (60-); Glucose, Blood 139 mg/dL (70-99); Phosphorus, Blood 4.7 mg/dL (2.5-4.9); Potassium, Blood 4.6 mmol/L (3.5-5.5); Sodium, Blood 137 mmol/L (136-145)
--- NOTE | 2020-04-21 07:45 | NUR ---
SUMMARY NO ACUTE CHANGES NOTED THROUGH THE NIGHT. PT HAS WORN HER BIPAP FOR A TOTAL OF 6 HOURS, OXYMIZER @ 7-8 L DURING BREAKS, SHE REMAINS IN AFIB, TACHY @ TIMES, ASYMPTOMATIC, ABX INFUSED PER EMAR, TOLERATING PO INTAKE, NAGY REMAINS PATENT, URINE IS CLEAR YELLOW. CALL LIGHT IN REACH, REPORT GIVEN TO DAY RN.
--- NOTE | 2020-04-21 19:46 | NUR ---
SHIFT SUMMARY PT A&Ox3; CALM AND COOPERATIVE WITH CARE. FORGETFUL AT TIMES. PT REPORT BACK/NECK PAIN, MEDICATED PER EMAR. PT SOB WITH EXERTION; SPO2 >90 FOR MAJORITY OF SHIFT. PT TITRATED FROM 8L O2 VIA NC TO 5-6L DURING SHIFT. NO BIPAP USE DURING SHIFT. PT DENIES NAUSEA, CHEST PAIN AND DIZZINESS T/O SHIFT. VSS. NO OTHER ACUTE CHANGS NOTED DURING SHIFT. WILL CONTINUE TO MONITOR UNITL REPORT GIVEN TO ONCOMING RN.
[2020-04-22 05:52] LABS: Hematocrit 33.3 % (33.0-51.0); Mean Corpuscular HGB 31.4 pg (26.0-34.0); Mean Platelet Volume 11.7 fL (9.1-12.4); Platelet Count 287 K/mm3 (150-400); RDW Coefficient Variation 16.5 % (11.7-14.2); RDW Standard Deviation 63.4 fL (35.1-46.3); Red Blood Cell Count 3.18 M/mm3 (3.80-5.20)
[2020-04-22 05:54] LABS: Albumin, Blood 2.3 g/dL (3.4-5.0); Anion Gap 2 mmol/L (6-16); Blood Urea Nitrogen 13 mg/dL (8-24); Bun/Creatinine Ratio 14.3 (12.0-20.0); CO2, Blood 34 mmol/L (21-32); Calcium, Blood 8.7 mg/dL (8.5-10.1); Chloride, Blood 102 mmol/L (98-108); Creatinine, Blood 0.91 mg/dL (0.40-1.00); Glomerular Filtration Rate >60 (60-); Glucose, Blood 126 mg/dL (70-99); Phosphorus, Blood 3.9 mg/dL (2.5-4.9); Potassium, Blood 4.3 mmol/L (3.5-5.5); Sodium, Blood 138 mmol/L (136-145)
--- NOTE | 2020-04-22 05:56 | NUR ---
SUMMARY PT HAS DONE WELL THROUGH THE NIGHT. SHE WAS ABLE TO HAVE MULTIPLE STOOLS, DENIES NAUSEA. O2 REMAINS @ 2L VIA OXYMIZER WHILE AWAKE, PT WAS ENC TO WEAR BIPAP WHILE SLEEPING, SHE WAS COMPLIANT THIS AM. O2 SATS REMAIN >90% LYRICA WAS HELD THIS AM DUE TO INCREASED SLEEPINESS. NO ACUTE CHANGES NOTED, CALL LIGHT IN REACH, WCTM
[2020-04-22 05:58] LABS: Mean Corpuscular Volume 105 fL (80-100)
[2020-04-22 06:03] LABS: BAND PERCENT MAN 1 % (0-8); BASOPHILS PERCENT MAN 0 % (0-2); EOSINOPHILS ABSOLUTE MAN 0.36 K/mm3 (0.00-0.68); EOSINOPHILS PERCENT MAN 3 % (0-6); LYMPHOCYTES ABSOLUTE MAN 1.59 K/mm3 (0.84-5.20); LYMPHOCYTES PERCENT MAN 13 % (21-46); METAMYELOCYTE ABSOLUTE MAN 0.24 K/mm3 (0.00-0.00); METAMYELOCYTE PERCENT MAN 2 % (0-0); MONOCYTES ABSOLUTE MAN 0.73 K/mm3 (0.16-1.47); MONOCYTES PERCENT MAN 6 % (4-13); MYELOCYTE ABSOLUTE MAN 0.24 K/mm3 (0.00-0.00); MYELOCYTE PERCENT MAN 2 % (0-0); SEG NEUTROPHILS PERCENT MAN 73 % (41-73); TOTAL CELLS COUNTED 100
--- NOTE | 2020-04-22 17:38 | NUR ---
SHIFT SUMMARY PT A&Ox3; FORGETFUL AT TIMES. 1 PERSON ASSIST WITH WALKER AND GAIT BELT. PT REPORTS NECK AND BACK PAIN; MEDICATED x1 WITH TYLENOL. PT SOB WITH EXERTION, PT TITRATING 5-6L O2 VIA OXYMIZER. PT DENIES NASUEA AND DIZZINESS. PT UP WALKING IN HALLWAY WITH PHYSICAL THERAPY. VSS. NO OTHER ACUTE CHANGES NOTED DURING SHIFT. WILL CONTINUE TO MONITOR UNTIL REPORT GIVEN TO ONCOMING RN.
--- NOTE | 2020-04-22 19:30 | NUR ---
ASSUMED CARE OF PATIENT, RECEIVED REPORT FROM JASSON TORRES. PT A&OX4, SITTING UP IN BED. OXIMIZER ON AT 6L/M, NO RESPIRATORY DISTRESS. CALL LIGHT WITHIN REACH
[2020-04-23 04:51] LABS: Albumin, Blood 2.4 g/dL (3.4-5.0); Anion Gap 2 mmol/L (6-16); Blood Urea Nitrogen 12 mg/dL (8-24); Bun/Creatinine Ratio 12.5 (12.0-20.0); CO2, Blood 35 mmol/L (21-32); Chloride, Blood 102 mmol/L (98-108); Creatinine, Blood 0.96 mg/dL (0.40-1.00); Glomerular Filtration Rate >60 (60-); Glucose, Blood 113 mg/dL (70-99); Phosphorus, Blood 4.5 mg/dL (2.5-4.9); Potassium, Blood 4.1 mmol/L (3.5-5.5); Sodium, Blood 139 mmol/L (136-145)
--- NOTE | 2020-04-23 05:07 | NUR ---
SUMMARY STABLE THROUGH SHIFT. LUNG SOUNDS REMAIN DECREASED WITH CRACKLES IN BASES, COUGHING UP MOD AMTS THICK WHITE PHLEGM. CONTINUOUS CARDIAC MONITORING, AFIB 70-80S. ASSISTED UP TO COMMODE 3 TIMES, VOIDING WNL, SMALL BM. MEDICATED WITH XANAX AT APPROX 2300 FOR MILD ANXIETY. PLACED ON BIPAP FROM [id number], TOLERATED WELL WITH SATS IN LOW 90S.
--- NOTE | 2020-04-23 12:45 | NUR ---
The pt was awake, alert, and requesting a shower this morning. She went up to the shower and was quite tired afterwards. AT this time she is sitting up , eating lunch and states that she had a nap this morning after the shower. Also requested and received xanax for anxiety. Noted heart rate is 100-115 at this time.
--- NOTE | 2020-04-23 18:17 | NUR ---
summary Lisette today was on 7 l/min of oxygen delivery, but does have desaturation into 78% spo2 when she takes her oxygen off and attempts to get up and walk around, even just for several seconds. She was instructed to keep the oxygen on to avoid this. When she is wearing the oxygen, she is still intolerant of much activity without becoming short of breath or having spo2 drop to 87%. She can also have spo2 88% while eating, talking, while sitting up in the bed. She does have crackles and wheezes auscultated in her lungs. Pt denies having to use oxygen at home except at night with her CPAP. Here she is using the bipap while sleeping.
[2020-04-24 03:37] LABS: Hematocrit 31.6 % (33.0-51.0); Hemoglobin 9.6 g/dL (11.5-16.0); Mean Corpuscular HGB 31.5 pg (26.0-34.0); Mean Corpuscular HGB Conc 30.4 g/dL (31.5-36.5); Mean Corpuscular Volume 104 fL (80-100); Mean Platelet Volume 11.7 fL (9.1-12.4); Platelet Count 291 K/mm3 (150-400); RDW Coefficient Variation 16.6 % (11.7-14.2); RDW Standard Deviation 62.1 fL (35.1-46.3); Red Blood Cell Count 3.05 M/mm3 (3.80-5.20); White Blood Cell Count 9.21 K/mm3 (4.00-11.30)
[2020-04-24 03:58] LABS: Albumin, Blood 2.4 g/dL (3.4-5.0); Anion Gap 4 mmol/L (6-16); Blood Urea Nitrogen 9 mg/dL (8-24); Bun/Creatinine Ratio 9.6 (12.0-20.0); CO2, Blood 33 mmol/L (21-32); Calcium, Blood 8.9 mg/dL (8.5-10.1); Chloride, Blood 101 mmol/L (98-108); Creatinine, Blood 0.94 mg/dL (0.40-1.00); Glomerular Filtration Rate >60 (60-); Glucose, Blood 153 mg/dL (70-99); Phosphorus, Blood 4.6 mg/dL (2.5-4.9); Potassium, Blood 3.9 mmol/L (3.5-5.5); Sodium, Blood 138 mmol/L (136-145)
[2020-04-24 05:40] LABS: BASOPHILS PERCENT MAN 0 % (0-2); EOSINOPHILS ABSOLUTE MAN 0.18 K/mm3 (0.00-0.68); EOSINOPHILS PERCENT MAN 2 % (0-6); LYMPHOCYTES ABSOLUTE MAN 1.65 K/mm3 (0.84-5.20); LYMPHOCYTES PERCENT MAN 18 % (21-46); MONOCYTES ABSOLUTE MAN 0.73 K/mm3 (0.16-1.47); MONOCYTES PERCENT MAN 8 % (4-13); MYELOCYTE ABSOLUTE MAN 0.27 K/mm3 (0.00-0.00); MYELOCYTE PERCENT MAN 3 % (0-0); NEUTROPHILS ABSOLUTE MAN 6.35 K/mm3 (1.96-9.15); SEG NEUTROPHILS PERCENT MAN 69 % (41-73); TOTAL CELLS COUNTED 100
--- NOTE | 2020-04-24 06:02 | NUR ---
SHIFT SUMMARY PT IS A 64 Y/O FEMALE, ADMITTED FOR PNA. SHE IS A&O X 3, THOUGH FORGETFUL AT TIMES. PT IS ON 5L VIA NC WHILE AWAKE, AND ON BIPAP WITH 30L FIO2 WHILE ASLEEP. PT DESATS QUICKLY DOWN TO THE 70-80S WHEN O2 IS TAKEN OFF. VITAL SIGNS OTHERWISE STABLE. SHE WAS MEDICATED X2 WITH PRN TYLENOL FOR NECK PAIN. NO COMPLAINTS OF NAUSEA OR ACUTE SOB. PT SLEPT WELL THROUGH THE NIGHT. NO ACUTE CHANGES IN PT CONDITION NOTED. WILL CONTINUE TO MONITOR AND TREAT PER EMAR UNTIL HAND OFF TO DAY SHIFT RN.
--- NOTE | 2020-04-24 07:25 | NUR ---
Alerted to pt's activity by bed alarm. She also had desaturation to 82% due to her activity of looking through her purse for her phone. She was encouraged to slow down her pace, in order to manage her breathing during activity. She is keeping her oxygen on and presently it is at 5 l/min flow rate, n.c. delivery. AFter just a few minutes of rest, she has recovered her spo2 to 90%. Denies feeling short of breath or dyspneic when she had a spo2 less than 88%. Noted sinus rhythm at 76bpm on the quality assurance monitor body. Pt states that she takes bisoprolol fumarate 2.5 mg daily at home, but is not taking any beta luciano here in the hospital.
--- NOTE | 2020-04-24 07:33 | NUR ---
Pt is requesting xanax. NO obvious anxiety or agitation, but she is used to taking this regularly. States that she has 'anxiety issues' and takes it four times a day regularly.
--- NOTE | 2020-04-24 13:00 | NUR ---
Patient up to bedside commode with 1 stand by assist. She was very short of breath on the way back to bed. SPO2 in the 80's on 7L O2 via high flow nasal cannula. Increased O2 to 9L, patient took several minutes to recover SPO2 into the 90's. Turned O2 back down to 7L and SPO2 remained in the 90's. Patient does not wear O2 at home. Patient able to take medications, states she is going to take a nap now. Call light in reach, bed alarm on.
--- NOTE | 2020-04-24 14:55 | NUR ---
Dr. Moran at bedside. Discussed POC. Notified her patient very sob up to bsc earlier today, required increase to 9l o2 to increase spo2 to 90's. Now on 5l o2 via high flow nc. Patient states she has difficulty taking deep breaths, no productive cough. Plan is to use flutter valve, incentive spirometer, chest x ray, and ultrasound of left upper arm.
--- NOTE | 2020-04-24 19:15 | NUR ---
INITAL SHIFT ASSESSMENT PT IS ALERT AND ORIENTED AND SITTING UP IN BED. SHE IS A LITTLE SOB AT REST BUT ABLE TO TOLERATE FEELING SOB. SHE STATES SHE HAS SOME PAIN TO HER LEFT CHEST UNDER HER BREAST WHEN SHE HAS A COUGHING SPELL. WILL ENCOURAGE HER TO WEAR HER BIPAP FOR NIGHT TIME HOURS. PT STATES SHE LIKES TO WEAR HER CPAP AT HOME, BUT DOES NOT LIKE THE BIPAP PARTICULARYLY. SHE DENIES ANY CHEST PAIN AT THIS TIME. STATES OVERALL SHE FEELS MUCH BETTER, BUT WEAK WHEN EVER SHE IS OOB. VITALS ARE STABLE AT THIS TIME. PERIPHERAL IV SL AT THIS TIME, BUT FLUSHES WELL. PT IS UP TO BSC WITH ASSISTANCE NEEDED. PT WAS ABLE TO DEMONSTRATE USE OF CALL LIGHT. COOPERTIVE WITH THIS RN'S CARE AT THIS TIME. WILL CON'T TO MONITOR AND KEEP PT SAFE T/O REMAINDER OF SHIFT.
--- NOTE | 2020-04-24 19:28 | NUR ---
SHIFT SUMMARY: PATIENT A/OX3. HAS DENIED PAIN T/O THE SHIFT. ON 5-7L O2 VIA HIGH FLOW NC AT REST, OCCASSIONALLY REQUIRES UP TO 9L WITH ACTIVITY. SOB WITH EXERTION. UP WITH SBA AND FWW. AMBULATED WITH PHYSICAL THERAPY.
--- NOTE | 2020-04-24 23:33 | NUR ---
SHIFT UPDATE PT TOOK HER MEDS AT THIS TIME WITH NO ISSUES. RT IN ROOM AND PLACED BIPAP ON PT. SEE RT NOTES FOR ANY SETTING CHANGES TO BIPAP. VITALS ARE STABLE AT THIS TIME. WILL CON'T TO MONITOR PT.
[2020-04-25 04:02] LABS: BASOPHILS ABSOLUTE AUTO 0.06 K/mm3 (0.00-0.23); BASOPHILS PERCENT AUTO 1 % (0-2); EOSINOPHILS ABSOLUTE AUTO 0.24 K/mm3 (0.00-0.68); EOSINOPHILS PERCENT AUTO 2 % (0-6); Hematocrit 31.5 % (33.0-51.0); Hemoglobin 9.7 g/dL (11.5-16.0); IMMATURE GRAN ABSOLUTE AUTO 0.47 K/mm3 (0.00-0.10); IMMATURE GRAN PERCENT AUTO 5 % (0-1); LYMPHOCYTES ABSOLUTE AUTO 2.11 K/mm3 (0.84-5.20); LYMPHOCYTES PERCENT AUTO 20 % (21-46); MONOCYTES ABSOLUTE AUTO 1.18 K/mm3 (0.16-1.47); MONOCYTES PERCENT AUTO 11 % (4-13); Mean Corpuscular HGB 31.4 pg (26.0-34.0); Mean Corpuscular HGB Conc 30.8 g/dL (31.5-36.5); Mean Corpuscular Volume 102 fL (80-100); Mean Platelet Volume 10.9 fL (9.1-12.4); NEUTROPHILS ABSOLUTE AUTO 6.33 K/mm3 (1.96-9.15); NEUTROPHILS PERCENT AUTO 61 % (41-73); Platelet Count 323 K/mm3 (150-400); RDW Coefficient Variation 16.3 % (11.7-14.2); RDW Standard Deviation 61.2 fL (35.1-46.3); Red Blood Cell Count 3.09 M/mm3 (3.80-5.20); White Blood Cell Count 10.39 K/mm3 (4.00-11.30)
--- NOTE | 2020-04-25 05:18 | NUR ---
SHIFT SUMMARY PT CON'T TO BE STABLE. SHE WAS UP TO BSC WITH NO ISSUES AND DID NOT NEED ANY ASSISTANCE. SHE WAS SOB, BUT RECOVERED VERY QUICKLY WHEN RETURNED TO BED. SHE STATES SHE IS FEELING GOOD THIS AM. PT IS BACK ON N/C. VITALS ARE STABLE THIS AM. OVERALL PT HAS BEEN VERY PLESANT AND COOPERTIVE WITH HER CARE THIS EVENING. WILL CON'T TO MONITOR AND KEEP PT SAFE TILL BEDSIDE REPORT TO ONCOMING RN.
--- NOTE | 2020-04-25 16:30 | NUR ---
DR. MCKAY AT BEDSIDE. DISCUSSED POC. AWARE PATIENT UP TO 9L VIA HIGH FLOW NC WITH ACTIVITY THEN DOWN TO 7L AT REST. STATES SHE WILL PUT IN ORDERS.
--- NOTE | 2020-04-25 19:25 | NUR ---
SHIFT SUMMARY: PATIENT A/OX3. TYLENOL GIVEN FOR BACK PAIN WITH GOOD EFFECT. XANAX GIVEN. ON 7L O2 VIA HIGH FLOW NC, REQUIRES 9L WITH ACTIVITY AND TAKES A FEW MINUTES TO RECOVER. GETS UP TO BSC WITH SBA AND FWW. AMBULATED IN [place] WITH ASSISTANCE. PLEASANT AND COOPERATIVE WITH CARE.
[2020-04-26 03:41] LABS: BASOPHILS ABSOLUTE AUTO 0.08 K/mm3 (0.00-0.23); BASOPHILS PERCENT AUTO 1 % (0-2); EOSINOPHILS ABSOLUTE AUTO 0.29 K/mm3 (0.00-0.68); EOSINOPHILS PERCENT AUTO 3 % (0-6); Hematocrit 33.8 % (33.0-51.0); Hemoglobin 10.7 g/dL (11.5-16.0); IMMATURE GRAN ABSOLUTE AUTO 0.41 K/mm3 (0.00-0.10); IMMATURE GRAN PERCENT AUTO 4 % (0-1); LYMPHOCYTES PERCENT AUTO 24 % (21-46); MONOCYTES ABSOLUTE AUTO 1.06 K/mm3 (0.16-1.47); MONOCYTES PERCENT AUTO 10 % (4-13); Mean Corpuscular HGB 31.8 pg (26.0-34.0); Mean Corpuscular HGB Conc 31.7 g/dL (31.5-36.5); Mean Corpuscular Volume 101 fL (80-100); Mean Platelet Volume 11.2 fL (9.1-12.4); NEUTROPHILS ABSOLUTE AUTO 5.92 K/mm3 (1.96-9.15); NEUTROPHILS PERCENT AUTO 58 % (41-73); Platelet Count 344 K/mm3 (150-400); RDW Coefficient Variation 16.4 % (11.7-14.2); RDW Standard Deviation 59.6 fL (35.1-46.3); Red Blood Cell Count 3.36 M/mm3 (3.80-5.20); White Blood Cell Count 10.16 K/mm3 (4.00-11.30)
--- NOTE | 2020-04-26 07:45 | NUR ---
SUMMARY PT IS CURRENTLY ON 8 L O2 VIA NC, CONT BIOX IN PLACE, O2 SATS FLUCTUATE BETWEEN 89-93%. PT WAS PLACED ON BIPAP THROUGH THE NIGHT DUE TO EXTENDED RECOVERY PERIODS AFTER ACTIVITY, FIO2 35%-40%. PT WAS ATTEMPTING TO DRINK WHILE HER BIPAP MASK WAS ON DURING THE NIGHT, SHE WAS STOPPED, EDUCATION GIVEN, PT STATED UNDERSTANDING. INCIDENT REPORT TO ONCOMING RN. NO OTHER ACUTE CHANGES NOTED. BED ALARM IN PLACE FOR SAFETY. CALL LIGHT IN REACH.
--- NOTE | 2020-04-26 17:15 | NUR ---
SHIFT SUMMARY: PT CONTINUES A&O T/OUT SHIFT, MAINTAINS OXYGEN SATURATIONS OF 90-93% ON 8L/MIN, TRANSITIONS TO AND FROM BIPAP WITHOUT DIFFICULTY. PT REQUESTS PRN XANAX AND MEDICATED ACCORDING TO EMAR. PT ABLE TO TRANSITION SELF TO AND FROM BSC. PE STUDY PERFORMED, RESULTS ARE NEGATIVE BUT SHOW WORSENING PNEUMONIA. INFUSION OF LEVAQUIN INITIATED PER EMAR. WILL CONTINUE TO MONITOR AND TREAT ACCORDINGLY T/OUT SHIFT.
--- NOTE | 2020-04-26 20:09 | NUR ---
ASSUMED CARE RECEIVED REPORT FROM JASSON NADIU. PT IS SITTING UP IN BED, ALERT AND ORIENTED X 4. SHE IS ON 8L HIGH FLOW NC, SAT'ING 91% - TALKING WITH ON PHONE. SHE IS ON TELLY. BED LOW AND LOCKED. CALL LIGHT WITHIN REACH.
--- NOTE | 2020-04-27 03:06 | NUR ---
UPDATE PT TOOK CPAP OFF DUE TO IT HURTING HER NOSE AND BECAUSE SHE NEEDED TO VOID . SHE DESATTED TO 75-85% RANGE DURING THIS TIME. FARAZ SPAULDING, CAME INTO ROOM AND GOT HER ON THE HIGH FLOW NC AND TURNED IT UP TO 15L/MIN. SHE EVENTUALLY RECOVERED TO 88% IN WHICH SHE THEN ASSISTED HER TO THE BEDSIDE COMMODE - IN WHICH SHE DESATTED AGAIN TO LOW 80s% - SHE WAS SITTING DOWN ON THE COMMODE SHE RECOVERED AGAIN. ONCE SHE GOT BACK TO BED IT TOOK HER A FEW MINUTES BEFORE RECOVERING TO 88-91%. THIS RN CAME INTO THE ROOM WHEN SHE WAS ON THE COMMODE. WILL KEEP HER ON THE HIGH FLOW NC FOR THE TIME BEING SO THE PATIENT CAN HAVE A BREAK. WILL CONTINUE TO MONITOR. SHE DESATS WITH ANY ACTIVITY.
--- NOTE | 2020-04-27 05:22 | NUR ---
SHIFT SUMMARY PT IS CURRENTLY ON 8L HIGH FLOW NC, SHE WAS REFUSING TO PLACE THE CPAP BACK ON DUE TO HER PAIN,BUT AT REST SHE WAS MAINTAINING SATS IN THE LOW 90s. OTHER SHE WAS ONLY ABLE TO GET MINIMAL SLEEP LAST NIGHT. VITALS WERE STABLE ALL NIGHT. SINUS RHYTHM. PT INDEPENDENT IN BED, AND IS SBA WHEN TRANSFERRING TO THE BEDSIDE COMMODE, IN WHICH SHE USES A WALKER TO HELP STAND UP AND PIVOT. ADEQUATE URINE OUTPUT T/O MY SHIFT. NO BM OVERNIGHT. SHE REMAINS ALERT AND OREINTED X 4 T/O NIGHT, ALTHOUGH, HAS SHOWN SIGNS OF BEING A LITTLE FORGETFUL. SHE TOOK HER MASK OFF WITHOUT USING THE CALL LIGHT OR LETTING US KNOW AT FIRST - AFTER BEING TOLD TO USE THE CALL LIGHT. BED IS LOW AND LOCKED. CALL LIGHT WITHIN REACH.
--- NOTE | 2020-04-27 06:40 | NUR ---
UPDATE HELD 0600 DOSE OF LYRICA, DUE TO PT FINALLY SLEEPING. WILL PASS ALONG TO DAY SHIFT RN.
--- NOTE | 2020-04-27 10:24 | NUR ---
ASSUMED CARE OF PT THIS AM. RECEIVED REPORT FROM JASSON BLEVINS. PER REPORT PT GOT LITTLE REST T/OUT NOC SHIFT, OXYGEN SATURATIONS CONTINUE TO DECLINE EASILY. AT REST, PT O2 SATS AT APPROX 93-94% BUT DECLINE QUICKLY TO 86-88% WITH TALKING OR ACTIVITY. PT TAKES MORNING MEDICATION W/OUT DIFFICULTY. SPEECH THERAPY TO BEDSIDE FOR EVAL.
--- NOTE | 2020-04-27 12:00 | NUR ---
Review of pt with hospitaist and tre at this point our interactions are supportive only.
--- NOTE | 2020-04-27 18:33 | NUR ---
SHIFT SUMMARY: NO ACUTE CHANGES TO PT STATUS. PT CONTINUES ALERT AND ORIENTED, CAN BE IMPULSIVE, TRANSFERING SELF TO BSC PRIOR TO PRESSING CALL BUTTON. PT O2 SATS CONTINUE TO DECLINE QUICKLY WITH ANY ACTIVITY. PT WAS ABLE TO AMBULATE TO SHOWER CHAIR, O2 FLOW WAS INCREASED TO 15 L/MIN, UPON RETURN TO BED PT O2 SATS AT 88%. PT TITRATED BACK DOWN TO 8 L/MIN, TOLERATES WELL. WILL CONTINUE TO TREAT AND MONITOR ACCORINGLY UNTIL CHANGE OF SHIFT.
--- NOTE | 2020-04-27 19:31 | NUR ---
REPORT GIVEN TO JASSON ESCOBEDO. PT PO LYRICA CONTINUES 2 HOURS BEHIND SCHEDULE, GREGG HAS BEEN NOTIFIED OF DELAY.
--- NOTE | 2020-04-28 07:58 | NUR ---
SHIFT SUMMARY PT A/OX4. ON 8L NC WITH SPO2 AT 90% HIGHFLOW NC. CONT TO DESTATURATE QUICKLY, DROPPING TO LOW 80'S UPON EXERTION AT TIMES. REQUIRES INCREASE IN 02 TO RECOVER. CPAP IN PLACE WHILE SLEEPING. PAIN AND ANXIETY MANAGED PER EMAR. PT MAXWELL PO INTAKE, DENIES N/V. IS VOIDING, USING BSC W/SBA. ABLE TO REPOSITION SELF IN BED. REPORTS AMBULATING IN HALLWAY DURING DAY W/THERAPY. NO BM, REPORTS "DIARRHEA HAS STOPPED." HOURLY ROUNDING AND ADL ASSISTANCE T/O SHIFT, [facility] DOWNTIME TONIGHT. BED SIDE REPORT GIVEN TO DAY RN.
--- NOTE | 2020-04-28 09:53 | NUR ---
ASSUME CARE THIS AM: PT ALERT AND PLEASANT THIS AM, C/O BACK PAIN BUPRENEPHRINE GIVEN. VITALS HRR 80'S NSR, BP SYSTOLIC 100'S, SATS ABOVE 87% ON 10L OF O2 VIA HIFLO NC, AFEBRILE, PT REMAIND ON IV ABO, ATE BREAKFAST WITHOUT ISSUES THIS MORNING, PT IS FOR BARIUM SWALLOW. AWAITING FOR PROCEDURE TO BE DONE. PT IN BED RESTING CALL LIGHTS IN REACH WILL MONITOR
--- NOTE | 2020-04-28 18:20 | NUR ---
PT SUMMARY; PT VITALS STABLE, HRR SINUS AT 70'S, BP SYSTOLIC 110S', AFEBRILE. SATS ABOVE 88% ON 8L OF HIFLO WHEN RESTING, PT DESATS TO LOW 80'S WITH EXERTION RECOVERS PRETTY QUICK WHEN RESTED. PT WORKED AND AMBULATED WITH THERAPY TODAY. NO OTHER ACUTE CHANGE, SBA TO BSC. PAIN MEDS AND XANAX GIVEN X1. PT REMAINS ON IV ABO. ABLE TO MAKE NEEDS KNOWN, WILL REPORT TO ONCOMING SHIFT
--- NOTE | 2020-04-29 06:31 | NUR ---
SUMMARY NO ACUTE CHANGES NOTED THROUGH THE NIGHT. PT REMAINS ON 10 L VIA NC. SHE DID WEAR HER CPAP FOR A FEW HOURS THROUGH THE NIGHT. PAIN MEDICATED PER EMAR. STAND BY ASSIST TO BSC. NO CONFUSION NOTED, PT HAS BEEN COMPLIANT WITH CARE. WCTM & REPORT TO DAY RN, CALL LIGHT IN REACH
--- NOTE | 2020-04-29 13:44 | NUR ---
Medicated for c/o pain "01/30 between my L4 and L5. It feels like I got kicked by a goat."
--- NOTE | 2020-04-29 18:23 | NUR ---
PT SUMMARY: PT VITALS STABLE FOR THE SHIFT, SATS REMAINED ABOVE 87% ON 8L OF O2, PT STILL DESATS TO LOW 80'S WITH EXERTION. PT REPORTED COUGH TODAY, MOIST AND NON PRODUCTIVE, SPUTUM WITH SOME BLOOD SENT TO LAB FOR CULTURE. CXR SHOWED SOME IMPROVEMENT TODAY, PT REMAINS ON IV ABO, BREATHING TX PER RT. PT HAD PAIN MEDS AND XANAX GIVEN TODAY ONE TIME DOSE OF PERCOCET 5/325 GIVEN FOR SEVERE BACK PAIN AND IS EFFECTIVE. PT IS NOW RESTING IN BED, PT STATED SHE HAS BEEN MORE TIRED AND EXHAUSTED TODAY, PT/OT SKIP FOR TODAY FOR PT TO GET RESTED. PT IS NOW RESTING IN BED, CALL LIGHTS IN REACH WILL REPORT TO ONCOMING SHIFT
[2020-04-30 03:55] LABS: Hematocrit 33.6 % (33.0-51.0); Hemoglobin 10.2 g/dL (11.5-16.0); Mean Corpuscular HGB 30.4 pg (26.0-34.0); Mean Corpuscular HGB Conc 30.4 g/dL (31.5-36.5); Mean Corpuscular Volume 100 fL (80-100); Mean Platelet Volume 11.2 fL (9.1-12.4); Platelet Count 287 K/mm3 (150-400); RDW Standard Deviation 59.2 fL (35.1-46.3); Red Blood Cell Count 3.35 M/mm3 (3.80-5.20); White Blood Cell Count 10.18 K/mm3 (4.00-11.30)
[2020-04-30 04:15] LABS: Bun/Creatinine Ratio 12.7 (12.0-20.0); Calcium, Blood 9.9 mg/dL (8.5-10.1); Creatinine, Blood 1.18 mg/dL (0.40-1.00); Potassium, Blood 3.9 mmol/L (3.5-5.5)
--- NOTE | 2020-04-30 06:20 | NUR ---
SUMMARY NO ACUTE CHANGES NOTED THROUGH THE NIGHT. PT REMAINS ON 8 L O2. O2 SATS CONTINUE TO FLUCTUATE WITH ACTIVITY. PT HAS BEEN HAPPY & COOPERATIVE WITH CARE. SHE IS VOIDING WNL, BM X2, & TOLERATING PO INTAKE. PAIN MANAGED PER EMAR. SPUTUM SAMPLE WAS CONTAMINATED PER LAB SO A NEW CONTAINER WAS GIVEN TO HER. PT IS HYPOTENSIVE BUT ASYMPTOMATIC, AFEBRILE. WCTM, CALLS FOR ASSISTANCE PRN.
--- NOTE | 2020-04-30 07:28 | NUR ---
ASSUMED PATIENT CARE. PATIENT RESTING COMFORTABLY IN BED, CONVERSING WITH NURSING STAFF. NO SIGNS OF ACUTE DISTRESS, WCTM.
--- NOTE | 2020-04-30 18:03 | NUR ---
DR. DING SAW PATIENT AT BEDSIDE, PLANS TO START SOLUMEDROL BID. PATIENT EXPERIENCED SOB AT TIMES WITH CHEST TIGHTNESS, RELIEF ENDORSED WITH ALBUTEROL NEBS. PATIENT ON 7-9 L NASAL CANNULA, SAME FOR CPAP. PATIENT ABLE TO AMBULATE TO BEDSIDE COMODE, PATIENT WILL DESAT TO 70S O2 WITH ACTIVITY, SPEAKING, OR EATING. PATIENT IS ASYMPTOMATIC WITH DESATURATION. BP LOW AT TIMES, PATIENT DENIES DIZZINESS. SPUTUM SAMPLE SENT TODAY. PATIENT CONTINUED ON IV ABX.
--- NOTE | 2020-05-01 05:02 | NUR ---
SHIFT SUMMARY PT A&O X3-4; FORGETFUL OF DETAILS AT TIMES; DENIES CHEST PAIN; VSS; NSR NOTED ON TELE; PT DESATS W/ ACTIVITY; STATES SHE "KNOWS THE STEROIDS WILL HELP"; REQUESTS MEDICATIONS FREQUENTLY; APPRECIATE STAFF VISITING IN ROOM; CALL LIGHT IN REACH; BED IN LOWEST POSITION; WILL CONTINUE TO MONITOR CLOSELY UNTIL HAND OFF TO DAY SHIFT RN.
--- NOTE | 2020-05-01 07:38 | NUR ---
ASSUMED PATIENT CARE. PATIENT RESTING COMFORTABLY IN BED, CONVERSING WITH NURSING STAFF. NO SIGNS OF ACUTE DISTRESS, WCTM.
--- NOTE | 2020-05-01 18:24 | NUR ---
PATIENT HAD ONSET OF NOSEBLEED PRIOR TO START OF SHIFT, DR. RAYMOND NOTIFIED AND MULTIPLE NASAL SPRAY ORDERS GIVEN AND ADMINISTERED. BLEEDING DID NOT SUBSIDE, CONSULT OF DR. BENITES ENT PROVIDED, DR. BENITES SAW PATIENT AT BEDSIDE AND CAUTERIZED IN 2 PLACES IN THE LEFT NOSTRIL. BLEEDING RESOLVED. PATIENT REMAINED ON 8-10 L NASAL CANNULA, PLACED IN MOUTH DURING NOSEBLEED EPISODE. PATIENT CONTINUES TO DIP INTO O2 SATS OF 70-80S AT TIMES, ASYMPTOMATIC. PLAN IS TO CONTINUE IV STEROIDS.
--- NOTE | 2020-05-02 02:18 | NUR ---
ASSUMED CARE AT 1900. DENIES PAIN OR OTHER ISSURS . TALKING CONSTANTLY AND DESATS WITH ALL THIS TALING. ENCOURAGED TO TALK LESS, BUT REPORTS IT WILL PICK BACK UP. NOTED 9L BLEED IN ON BIPAP. AND W/ SWITCH TO HIGH FLOW , 9 L ALSO TO KEEP SAT >87%. FEW SPRAYS OF OCEAN SPRAY MIST FOR DRYNESS, BUT NO SIGN OF ACTIVE NOSE BLEED OR REPORT OF POST NASAL DRAINAGE . HS MEDS GIVEN AND DOZING AT LONG INTERVALS. INDEPENDENT TO BSC AND STEADY GAIT . NOTED SR, FEW PVCS, PACS.
--- NOTE | 2020-05-02 04:14 | NUR ---
INDEPENDENT TO BSC AND CAN DESAT LOW 75%. ENCOURAGED NOT TO TALK WHILE SHE IS OOB. SHE IS ON BIPAP WITH THIS ACTIVITY. REPORTS BOTH LEGS ARE NUMB AND ACHE. NOT TINGLING , PER HX OF 2 YR. AND SHE PLANS TO HAVE AN ELECTRICAL STIMULATING UNIT INSESRTED. AT BASE LINE FOR PAIN AND DISCOMFORT FOR THIS. ORIENTED / CALM AND NO ESCALATING EPISODES IN MENTATION, TONIGHT.
[2020-05-02 04:31] LABS: Anion Gap 3 mmol/L (6-16); Blood Urea Nitrogen 29 mg/dL (8-24); CO2, Blood 33 mmol/L (21-32); Calcium, Blood 9.8 mg/dL (8.5-10.1); Chloride, Blood 103 mmol/L (98-108); Creatinine, Blood 0.97 mg/dL (0.40-1.00); Glomerular Filtration Rate >60 (60-); Glucose, Blood 170 mg/dL (70-99); Potassium, Blood 4.5 mmol/L (3.5-5.5); Sodium, Blood 139 mmol/L (136-145)
--- NOTE | 2020-05-02 05:47 | NUR ---
SHIFT SUMMARY. NO CHANGE FROM ABOVE NOTE. REQUESTING XAMERLIN W/ JÚNIOR.CALM AND CHEERFUL .
--- NOTE | 2020-05-02 17:15 | NUR ---
NO ACUTE EVENTS THIS SHIFT. PATIENT MOSTLY MAINTAINING O2 SAT OF MID-HIGH 80S TO LOW 90S. WILL OCCASIONALLY DIP DOWN TO 70S. SLIGHT NOSEBLEED TODAY, RESOLVED WITH PRESSURE. PATIENT REFUSED LOVENOX TODAY. PATIENT CONTINUED ON IV ABX AND STEROIDS. PATIENT VERY ANXIOUS AT TIMES THIS SHIFT, PATIENT SHARED WITH DR. CASE THAT ATIVAN WORKS BETTER THAN XANAX FOR HER,NEW ORDERS GIVEN AND ADMINISTERED.
--- NOTE | 2020-05-03 03:58 | NUR ---
PATIENT IS INDEPENDENT IN THE ROOM. NO COMPLAINTS OF PAIN. SOB WITH MILD EXERTION, 9L NC WITH O2SATS IN THE HIGH 80'S TO 90'S. LUNGS CLEAR WITH SLIGHT EXP WHEEZE. PATIENT WITH ANXIETY, ATIVAN PO GIVEN. PATIENT WAS ABLE TO FALL ASLEEP AROUND 0130. CPAP WITH 8L O2 BLEED IN WHILE SLEEPING. USES CALL LIGHT APPROPRIATELY.
--- NOTE | 2020-05-03 17:52 | NUR ---
SHIFT SUMMARY: PT CONTINUES A&O T/OUT SHIFT, MAINTAINING OXYGEN SATURATIONS >89% WHILE AT REST ON NC OR HOME CPAP. PT INDEPENDENT IN ROOM, USING BSC APPROPRIATELY. PT ABLE TO AMBULATE AROUND DEPARTMENT USING FWW AND PORTABLE OXYGEN, THIS RN STAND BY ASSIST. OXYGEN SATURATIONS DECLINE TO 82-84% WHILE AMBULATING, QUICKLY INCREASE TO 88% UPON RETURN TO ROOM. PT HAS ATIVAN ORDERED PRN Q6H, HAS BEEN REQUESTING IT Q6H T/OUT DAY. WILL CONTINUE TO MONITOR AND TREAT ACCORDINGLY UNTIL CHANGE OF SHIFT.
--- NOTE | 2020-05-03 21:00 | NUR ---
2000 PTS SPOUSE AT SIDE AND SUPPORTIVE WITH PIZZA BROUGHT FROM HOME; DENIES PAIN OR NAUSEA; WEARING BI-PAP WITH 8L O2 BLEED IN NOTED WITH O2 SATS 90%; VOICE CLEAR AND AUDIBLE.
--- NOTE | 2020-05-04 03:41 | NUR ---
SHIFT SUMMARY: 64 Y/O FEMALE HAD VERY RESTLESS NIGHT ALL SHIFT; PT HAD FREQUENT HARSH PRODUCTIVE COUGH WHITE PHELGM WITH O2 SATS MAINTAINING 87-89%; PT HAD ALOT ANXIETY WITH SCHEDULED LYRICA 150MG AND PRN ATIVAN 1MG PO GIVEN WITH MODERATE RELIEF FELT; PT REFUSED TO WEAR SCDS; ALERT AND ORIENTED X 4; PTS SPOUSE AT SIDE EARLIER IN SHIFT AND VERY SUPPORTIVE; PT AND ALTERNATED BETWEEN WEARING BIPAP OR O2 THIS SHIFT FOR COMFORT TO KEEP O2 SATS UP; PT MAY HAVE SLEPT LESS THAN 1 HOUR THIS SHIFT; TELEMETRY REFLECTS NSR PER ISATU--FIELD MARKETING SPECIALIST; LUNGS SOUNDS ARE VERY COARSE THROUGHOUT; PT BECOMING VERY SOB WITH SLIGHT EXERCTION; BED LOW POSITION WITH CALL LIGHT AT SIDE.
[2020-05-04 04:03] LABS: Hemoglobin 10.5 g/dL (11.5-16.0); Mean Corpuscular HGB 31.3 pg (26.0-34.0); Mean Corpuscular HGB Conc 31.8 g/dL (31.5-36.5); Mean Corpuscular Volume 98 fL (80-100); Mean Platelet Volume 11.5 fL (9.1-12.4); NRBC ABSOLUTE 0.03 K/mm3 (0.00-0.02); NRBC Auto 0.1 /100 WBC (0.0-0.2); Platelet Count 407 K/mm3 (150-400); RDW Coefficient Variation 16.6 % (11.7-14.2); RDW Standard Deviation 58.9 fL (35.1-46.3); Red Blood Cell Count 3.36 M/mm3 (3.80-5.20); White Blood Cell Count 21.71 K/mm3 (4.00-11.30)
[2020-05-04 04:29] LABS: Albumin, Blood 3.2 g/dL (3.4-5.0); Anion Gap 8 mmol/L (6-16); Blood Urea Nitrogen 31 mg/dL (8-24); Bun/Creatinine Ratio 35.9 (12.0-20.0); CO2, Blood 25 mmol/L (21-32); Calcium, Blood 8.9 mg/dL (8.5-10.1); Chloride, Blood 105 mmol/L (98-108); Creatinine, Blood 0.86 mg/dL (0.40-1.00); Glomerular Filtration Rate >60 (60-); Glucose, Blood 115 mg/dL (70-99); Phosphorus, Blood 2.7 mg/dL (2.5-4.9); Potassium, Blood 4.6 mmol/L (3.5-5.5); Sodium, Blood 138 mmol/L (136-145)
--- NOTE | 2020-05-04 19:33 | NUR ---
SHIFT SUMMARY: NO ACUTE CHANGES T/OUT SHIFT. PT CONTINUES TO BE INDEPENDENT IN ROOM, OXGYEN SATURATIONS RECOVERING MORE QUICKLY WHEN PT IS TALKING OR ACTIVE. PT CONTINUES TO REQUEST HER PRN ATIVAN ON A Q6H ROUTINE. PER DR COVARRUBIAS, PLAN OF CARE IS TO KEEP PT IN PCU AND INCREASE ACTIVITY LEVELS WITH MONITORING, AND POSSIBLE UPCOMING DC HOME DEPENDING ON PT PROGRESS AND REPEAT IMAGING. REPORT GIVEN TO JASSON MÉNDEZ TO ASSUME CARE OF PT.
--- NOTE | 2020-05-05 04:21 | NUR ---
SHIFT SUMMARY: PATIENT HAD ISSUES WITH LEG CRAMPS THIS SHIFT, MEDICATIONS/MASSAGE AND STRETCHING USED TO RELIEVE ISSUE. PATIENT RECVIEVING LASIX IN THE MORNINGS WITH -1600 FLUID BALANCE (POSSIBLE DUE TO UNREPORTED INTAKE). NO OTHER ISSUES NOTED, VSS, CALL LIGHT WITHIN REACH, BED LOW AND LOCKED WITH CALL LIGHT WIHIN REACH. PATIENT O2 STABLE THIS SHIFT AND PATIENT ON RA WHILE AWAKE WITH 02>88%
--- NOTE | 2020-05-05 07:26 | NUR ---
NURSING PCU DAYSHIFT: Assumed care of pt at approx 0700. A/O, pleasant, mildly anxious, cooperative w/care. Able to ambulate independently in room though has some mild general LE weakness. Denies any current pain/discomfort. Skin is intact, b/l feet reddened areas, no breakdown noted. Tele in place, NSR w/occ PVC's, SBP 150's, no c/o CP/pressure, no noted edema. L/S w/exp wheezes t/o, dyspnea w/exertion, desaturation to 70's w/xfers though upper 80's to low 90's at rest on 7L NC, continuous bedside O2 monitoring, occ cough producing brown/stringy sputum. Abd SNT, BT+, voiding w/o difficulty. 20g PIV to RFA, s/l. Pt denies any current needs or questions regarding plan of care. Is hopeful for discharge in near future. Uses call light w/o difficulty. Awaiting rounding from PMD, cont to monitor for any changes.
--- NOTE | 2020-05-05 17:29 | NUR ---
NURSING PCU DAYSHIFT SUMMARY: Pt has done well t/o the shift. VS remained stable, respiratory status continutes to improve. Though pt experiences dyspnea, amount of time required to recover O2 sat has decreased from previous days. Pt used lotion/ointment brought in from family member and experienced reaction causing redness to all ext's and trunk along w/excessive itching. PMD notified, new d/o received, PO benadryl administered, redness and itching improved. 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 Discussed plan for possible discharge tomorrow, pt agrees, home O2 eval will be required. Pt denies any current questions/needs, call light in reach, cont to monitor until rpt is given to NOC RN.
[2020-05-06 04:00] LABS: Hematocrit 31.5 % (33.0-51.0); Mean Corpuscular HGB 31.3 pg (26.0-34.0); Mean Corpuscular HGB Conc 31.7 g/dL (31.5-36.5); Mean Corpuscular Volume 99 fL (80-100); Mean Platelet Volume 11.6 fL (9.1-12.4); NRBC ABSOLUTE 0.05 K/mm3 (0.00-0.02); NRBC Auto 0.3 /100 WBC (0.0-0.2); Platelet Count 400 K/mm3 (150-400); RDW Coefficient Variation 16.6 % (11.7-14.2); RDW Standard Deviation 59.7 fL (35.1-46.3); Red Blood Cell Count 3.19 M/mm3 (3.80-5.20); White Blood Cell Count 17.03 K/mm3 (4.00-11.30)
[2020-05-06 04:16] LABS: Albumin, Blood 2.8 g/dL (3.4-5.0); Anion Gap 3 mmol/L (6-16); Blood Urea Nitrogen 31 mg/dL (8-24); Bun/Creatinine Ratio 39.1 (12.0-20.0); CO2, Blood 28 mmol/L (21-32); Calcium, Blood 8.1 mg/dL (8.5-10.1); Chloride, Blood 108 mmol/L (98-108); Creatinine, Blood 0.79 mg/dL (0.40-1.00); Glomerular Filtration Rate >60 (60-); Glucose, Blood 103 mg/dL (70-99); Phosphorus, Blood 2.4 mg/dL (2.5-4.9); Potassium, Blood 4.4 mmol/L (3.5-5.5); Sodium, Blood 139 mmol/L (136-145)
--- NOTE | 2020-05-06 05:50 | NUR ---
SHIFT SUMMARY. ASSUMED CARE AT 1900. NO ACUTE DISCOMFORT, SCHEDULED PAIN MEDS FOR GENERAL RESTLESSNESS AND ACHES .EXERTIONAL SOB ALWAYS PRESENT TO GET UP TO BSC , NOTED 82%. RECOVERS QUICKLY TO MID 90 FOR 7L . NO SKIN CONDITION OUTBREAK LAST SHIFT W/ LOTION FROM HOME. NO FURTHER APPLICATION. SR ,, ALL SHIFT.
--- NOTE | 2020-05-06 07:53 | NUR ---
ASSUMED CARE AT 0700, SITTING UPRIGHT IN BED. 5L 02 VIA AK. A/A/OX4, PLAN OF CARE REVIEWED FOR DAY, DENIES NEEDS AT THIS TIME.
[2020-05-06] MEDS ORDERED: IPRAT-ALBUT 0.5-3 ML INH (11:51)
[2020-05-06] MEDS ORDERED: VISBIOME PO (11:54)
[2020-05-06] MEDS ORDERED: BENZ100A PO (12:00)
[2020-05-06] MEDS ORDERED: DILT180 PO (12:01)
[2020-05-06] MEDS ORDERED: GUAI600T33 PO (12:02)
[2020-05-06] MEDS ORDERED: Ativan1 MG PO (12:03)
[2020-05-06] MEDS ORDERED: POTCHL20ER PO (12:04)
[2020-05-06] MEDS ORDERED: Prednisone10 M1 PO (12:05)
[2020-05-06] MEDS ORDERED: SODIUM CHLORIDE (12:08)
[2020-05-06] MEDS ORDERED: SULTRIDS PO (12:09)
== END 2020-05-06 16:22 | disposition home health service (06) | DRG 871 ==
LOC: ER 20:21 → ICUE 23:05 → MEDS 23:05 → PCU 23:05 → MEDS 04-13 01:17 → PCU 04-14 12:03 → ICUE 04-14 18:24 → PCU 04-19 16:20
PROVIDERS: Emergency Medicine; Family Medicine; Internal Medicine; Internal Medicine Critical Care Medicine; ADMIT Internal Medicine
PROC: 5A09357 Assistance with Respiratory Ventilation, Less than 24 Consecutive Hours, Continuous Positive Airway Pressure (ICD-10-PCS; principal; 2020-05-06)
DX: A41.51 Sepsis due to Escherichia coli [E. coli] (principal); J18.9 Pneumonia, unspecified organism; G92 Toxic encephalopathy; J96.21 Acute and chronic respiratory failure with hypoxia; J96.22 Acute and chronic respiratory failure with hypercapnia; J15.5 Pneumonia due to Escherichia coli; B37.1 Pulmonary candidiasis; F11.20 Opioid dependence, uncomplicated; E87.1 Hypo-osmolality and hyponatremia; N17.9 Acute kidney failure, unspecified; I82.619 Acute embolism and thrombosis of superficial veins of unspecified upper extremity; F17.210 Nicotine dependence, cigarettes, uncomplicated; Z99.81 Dependence on supplemental oxygen; M06.9 Rheumatoid arthritis, unspecified; F32.9 Major depressive disorder, single episode, unspecified; D64.9 Anemia, unspecified; M79.7 Fibromyalgia; Z20.828 Contact with and (suspected) exposure to other viral communicable diseases; R45.1 Restlessness and agitation; E83.39 Other disorders of phosphorus metabolism; G89.4 Chronic pain syndrome; E66.9 Obesity, unspecified; F41.9 Anxiety disorder, unspecified; I48.0 Paroxysmal atrial fibrillation; E87.70 Fluid overload, unspecified; K44.9 Diaphragmatic hernia without obstruction or gangrene; J43.9 Emphysema, unspecified; R04.0 Epistaxis; Z68.32 Body mass index [BMI] 32.0-32.9, adult; B37.7 Candidal sepsis
CPT/HCPCS: 0202U; 36415; 36600; 51702; 71045; 71046; 71101; 71260; 74220; 80048; 80053; 80069; 81001; 82803; 83605; 83735; 83880; 84100; 84145; 84484; 85025; 85027; 85651; 87040; 87070; 87077; 87106; 87186; 87205; 87449; 92610; 93005; 93010; 93306; 93971; 94640; 94660; 94664; 94667; 94761; 94762; 96365; 96367; 96375; 97110; 97112; 97116; 97162; 97166; 97530; 97535; 99285-25; 99406; A9270; A9270-GY; J0456; J0696; J1450; J1630; J1650; J1940; J1956; J2060; J2920; J2930; J3010; J3370; J7030; J7050; J7060; J7512; Q0163; Q2038; Q9967; U0002

== ENCOUNTER 2021-07-25 15:47 | Emergency (ER) | payer OTHER ==
[~2021-07-25] VITALS: Ht 172.7 cm; Wt 99.8 kg
[~2021-07-25 15:47] MED LIST changes: +ALBU90OI INH; +Ativan1 MG PO; +BENZ100A PO; +BUPRENORPHINE HC2 M1 SL; +DILT180 PO; +IPRAT-ALBUT 0.5-3 ML INH; +MELATONIN5 M1 PO; +POTCHL20ER PO; +SODIUM CHLORIDE; +SULTRIDS PO; +VISBIOME PO
== END 2021-07-25 19:34 | disposition home or self-care (01) ==
LOC: ER 15:47
DX: G43.909 Migraine, unspecified, not intractable, without status migrainosus (principal); G62.9 Polyneuropathy, unspecified; M79.7 Fibromyalgia; Z79.899 Other long term (current) drug therapy; Z91.048 Other nonmedicinal substance allergy status; Z88.8 Allergy status to other drugs, medicaments and biological substances; Z87.891 Personal history of nicotine dependence
CPT/HCPCS: 70450; 96374; 96375; 99284-25; A9270; J0780; J1200; J1885; J7030

== ENCOUNTER → 2022-03-22 | Outpatient (CLI) | payer OTHER ==
[~2022-03-22] MED LIST changes: +AZIT250 PO
== END | disposition home or self-care (01) ==
LOC: LAB SHORT 16:00
DX: R05.9 Cough, unspecified (principal)
CPT/HCPCS: 87070

== ENCOUNTER 2022-04-02 21:08 | Observation (INO) | payer OTHER ==
[~2022-04-02] VITALS: Ht 172.7 cm; Wt 96.5 kg
[2022-04-02 22:21] LABS: BASOPHILS ABSOLUTE AUTO 0.08 K/mm3 (0.00-0.23); BASOPHILS PERCENT AUTO 1 % (0-2); EOSINOPHILS ABSOLUTE AUTO 0.17 K/mm3 (0.00-0.68); EOSINOPHILS PERCENT AUTO 1 % (0-6); Hemoglobin 14.5 g/dL (11.5-16.0); IMMATURE GRAN ABSOLUTE AUTO 0.42 K/mm3 (0.00-0.10); IMMATURE GRAN PERCENT AUTO 3 % (0-1); LYMPHOCYTES ABSOLUTE AUTO 3.17 K/mm3 (0.84-5.20); LYMPHOCYTES PERCENT AUTO 20 % (21-46); MONOCYTES ABSOLUTE AUTO 1.99 K/mm3 (0.16-1.47); MONOCYTES PERCENT AUTO 13 % (4-13); Mean Corpuscular HGB 31.4 pg (26.0-34.0); Mean Corpuscular Volume 95 fL (80-100); Mean Platelet Volume 11.2 fL (9.1-12.4); NEUTROPHILS ABSOLUTE AUTO 10.13 K/mm3 (1.96-9.15); NEUTROPHILS PERCENT AUTO 63 % (41-73); Platelet Count 361 K/mm3 (150-400); RDW Coefficient Variation 17.2 % (11.7-14.2); RDW Standard Deviation 60.4 fL (35.1-46.3); Red Blood Cell Count 4.62 M/mm3 (3.80-5.20); White Blood Cell Count 15.96 K/mm3 (4.00-11.30)
[2022-04-02 22:41] LABS: Albumin, Blood 2.8 g/dL (3.4-5.0); Albumin/Globulin Ratio 0.8 (0.8-1.8); Bilirubin, Total 0.3 mg/dL (0.1-1.0); Bun/Creatinine Ratio 23.2 (12.0-20.0); Calcium, Blood 8.2 mg/dL (8.5-10.1); Creatinine, Blood 0.99 mg/dL (0.40-1.00); Globulin, Blood 3.3 g/dL (2.2-4.0); Magnesium, Blood 2.4 mg/dL (1.6-2.4); Potassium, Blood 3.7 mmol/L (3.5-5.5); Thyroid Stimulating Hormone 1.55 uIU/mL (0.360-4.800); Total Protein, Blood 6.1 g/dL (6.4-8.2)
[2022-04-02 23:24] LABS: Source, Urine Straight Cath
[2022-04-02 23:27] LABS: Bilirubin, Urine Neg (Neg); Blood, Urine Neg (Neg); Glucose Qualitative, Urine Neg (Neg); Ketones, Urine Neg (Neg); Leukocyte Esterase, Urine 1+ (Neg); Nitrite, Urine Neg (Neg); Protein, Urine 1+ (Neg); Urobilinogen, Urine NORM (Normal)
[2022-04-02 23:28] LABS: Appearance, Urine Clear (Clear); Color, Urine Yellow (P-Yellow)
[2022-04-02 23:34] LABS: Amorphous Light (0-Heavy); Bacteria Few /hpf; Mucus Light (0-Heavy); Red Blood Cells, Urine Not Seen /hpf (0-2); Squamous Epithelial Cells Not Seen /hpf (Few); White Blood Cells, Urine 0-2 /hpf (0-5)
[2022-04-03] MEDS ORDERED: Simvastatin10 MG PO (02:01)
--- NOTE | 2022-04-03 02:02 | NUR ---
PT ARRIED TO THE MEDIAL FLOOR VIA URNEY FROM THE ER PT WAS ABLE TO TRANSFER TO THE BED WITH MINIMAL ASSIST. THE PT REPORTS CHRONIC HIP PAIN. THE PT APPEARS RTO BE BREATHING EASILY ON RA AT THIS TIME. PT ORIENTED TO THE ROOM LAYOUT AND CALL SYSTEM. CALL LIGHT IN REACH
--- NOTE | 2022-04-03 04:24 | NUR ---
PT IS A/OX4, PLEASANT AND COOPERATIVE. THE PT IS UP WITH MINIMAL ASSIST TO THE BSC. THE PT WAS MEDICATED FOR RIGHT HIP PAIN X1 WITH DILAUDID WITH GOOD RESULTS, THE PT APPEARS TO BE COMFORTABLE AT THIS TIME. THE PT REPORTED THAT WHEN SHE WAS UP TO THE BSC SHE FELT NUMBNESS IN HER LEFT HAND FOR A SHORT MOMMENT, OTHERWISE, NO OTHER NEURO DEFICITS SO FAR THIS SHIFT. CALL LIGHT IN REACH, WILL CONTINUE TO MONITOR AND ASSESS FOR CHANGES
[2022-04-03 05:58] LABS: BASOPHILS ABSOLUTE AUTO 0.11 K/mm3 (0.00-0.23); BASOPHILS PERCENT AUTO 1 % (0-2); EOSINOPHILS ABSOLUTE AUTO 0.18 K/mm3 (0.00-0.68); EOSINOPHILS PERCENT AUTO 1 % (0-6); Hematocrit 41.2 % (33.0-51.0); Hemoglobin 13.3 g/dL (11.5-16.0); IMMATURE GRAN ABSOLUTE AUTO 0.38 K/mm3 (0.00-0.10); IMMATURE GRAN PERCENT AUTO 3 % (0-1); LYMPHOCYTES ABSOLUTE AUTO 3.36 K/mm3 (0.84-5.20); LYMPHOCYTES PERCENT AUTO 22 % (21-46); MONOCYTES ABSOLUTE AUTO 1.96 K/mm3 (0.16-1.47); MONOCYTES PERCENT AUTO 13 % (4-13); Mean Corpuscular HGB Conc 32.3 g/dL (31.5-36.5); Mean Corpuscular Volume 96 fL (80-100); Mean Platelet Volume 11.5 fL (9.1-12.4); NEUTROPHILS ABSOLUTE AUTO 9.15 K/mm3 (1.96-9.15); NEUTROPHILS PERCENT AUTO 61 % (41-73); Platelet Count 325 K/mm3 (150-400); RDW Coefficient Variation 17.2 % (11.7-14.2); RDW Standard Deviation 60.3 fL (35.1-46.3); Red Blood Cell Count 4.29 M/mm3 (3.80-5.20); White Blood Cell Count 15.14 K/mm3 (4.00-11.30)
[2022-04-03 06:31] LABS: Albumin, Blood 2.4 g/dL (3.4-5.0); Albumin/Globulin Ratio 0.8 (0.8-1.8); Bilirubin, Total 0.3 mg/dL (0.1-1.0); Bun/Creatinine Ratio 23.1 (12.0-20.0); Calcium, Blood 8.1 mg/dL (8.5-10.1); Globulin, Blood 3.1 g/dL (2.2-4.0); Potassium, Blood 3.5 mmol/L (3.5-5.5); Total Protein, Blood 5.5 g/dL (6.4-8.2)
[2022-04-03] MEDS ORDERED: ELIQUIS5 M2 PO (16:04)
--- NOTE | 2022-04-03 17:06 | NUR ---
DISCHARGE PT A&OX4 @ TIME OF DC DIRECTION. PT PROVIDED W/ WRITTEN AND VERBAL DIRECTION. TELE AND IV DC'ED. PT TOLERATING PO INTAKE, SR, NO C/O PAIN. ADMIN ELIQUIS PRIOR TO DC. MEDS FAXED TO [facility] [address]. PT ESCORTED OUT VIA WC TO [facility] BY RIGOBERTO MCCOY. PROVIDING TRANSPORT.
== END 2022-04-03 17:27 | disposition home or self-care (01) ==
LOC: ER 21:08 → MEDS 21:09 → ER 04-03 00:22 → MEDS 04-03 00:22
PROVIDERS: Student in an Organized Health Care Education/Training Program; ADMIT Internal Medicine
DX: G45.9 Transient cerebral ischemic attack, unspecified (principal); I48.91 Unspecified atrial fibrillation; G89.29 Other chronic pain; M54.9 Dorsalgia, unspecified; I95.9 Hypotension, unspecified; J44.9 Chronic obstructive pulmonary disease, unspecified; J84.9 Interstitial pulmonary disease, unspecified; F11.20 Opioid dependence, uncomplicated; M79.7 Fibromyalgia; M06.9 Rheumatoid arthritis, unspecified; Z86.718 Personal history of other venous thrombosis and embolism; Z86.711 Personal history of pulmonary embolism; Z79.82 Long term (current) use of aspirin; Z79.52 Long term (current) use of systemic steroids; Z79.899 Other long term (current) drug therapy; E86.0 Dehydration; Z95.818 Presence of other cardiac implants and grafts
CPT/HCPCS: 36415; 70450; 80053; 81001; 83735; 84443; 85025; 93005; 93010; 93308; 93321; 93880; 94640; 94664; 94760; 96374; 99285-25; A9270; J1170; J7030

== ENCOUNTER 2022-06-13 15:57 | Emergency (ER) | payer OTHER ==
[~2022-06-13 15:57] MED LIST changes: +ELIQUIS5 M2 PO; +Simvastatin10 MG PO
== END 2022-06-13 17:08 | disposition left against medical advice (07) ==
DX: M25.562 Pain in left knee (principal); Z79.899 Other long term (current) drug therapy; Z79.01 Long term (current) use of anticoagulants; Z79.51 Long term (current) use of inhaled steroids; Z53.21 Procedure and treatment not carried out due to patient leaving prior to being seen by health care provider

== ENCOUNTER 2022-09-15 01:31 | Emergency (ER) | payer OTHER ==
[~2022-09-15] VITALS: Ht 167.6 cm; Wt 77.1 kg
[2022-09-15] MEDS ORDERED: OXYC5 PO (02:20)
[2022-09-15] MEDS ORDERED: COLACE100 MG PO (02:20)
[2022-09-15] MEDS ORDERED: Prednisone10 MG PO (02:21)
[2022-09-15] MEDS ORDERED: SPIRONOLACTONE25 MG PO (02:24)
[2022-09-15] MEDS ORDERED: HYDHCL25 PO (02:25)
== END 2022-09-15 02:30 | disposition home or self-care (01) ==
LOC: ER 01:31
DX: S43.421A Sprain of right rotator cuff capsule, initial encounter (principal); X50.9XXA Other and unspecified overexertion or strenuous movements or postures, initial encounter; Z88.8 Allergy status to other drugs, medicaments and biological substances; Z88.6 Allergy status to analgesic agent; Z88.1 Allergy status to other antibiotic agents; Z91.048 Other nonmedicinal substance allergy status; Z79.899 Other long term (current) drug therapy; Z87.891 Personal history of nicotine dependence; M06.9 Rheumatoid arthritis, unspecified; G43.909 Migraine, unspecified, not intractable, without status migrainosus; J44.9 Chronic obstructive pulmonary disease, unspecified; I48.91 Unspecified atrial fibrillation
CPT/HCPCS: 73030; 96372; 99283-25; A9270; J1885

== ENCOUNTER 2022-10-07 08:33 | Day surgery (SDC) | payer OTHER ==
[~2022-10-07] VITALS: Ht 172.7 cm; Wt 92.7 kg
[~2022-10-07 08:33] MED LIST changes: +COLACE100 MG PO; +HYDHCL25 PO; +Prednisone10 MG PO; +SPIRONOLACTONE25 MG PO
[2022-10-07 09:06] VITALS: BP 160/84
[2022-10-07] MEDS ORDERED: ALEN70 PO (09:20)
[2022-10-07] MEDS ORDERED: CLOP75 PO (09:21)
[2022-10-07 10:55] VITALS: BP 132/79
[2022-10-07 11:00] VITALS: BP 133/65
[2022-10-07 11:02] VITALS: BP 131/72
--- NOTE | 2022-10-07 11:30 | NUR ---
PT AND VERBALIZED UNDERSTANDING OF WRITTEN AND VERBAL D/C INST. IV REMOVED. PT AMB TO W/C /S DIFFICULTY. PT TAKEN OUT OF THE HRT CENTER VIA W/C.
== END 2022-10-07 23:06 | disposition home or self-care (01) ==
LOC: MHTC 08:33
DX: Z45.09 Encounter for adjustment and management of other cardiac device (principal); Z95.818 Presence of other cardiac implants and grafts; J44.9 Chronic obstructive pulmonary disease, unspecified; M06.9 Rheumatoid arthritis, unspecified; E78.5 Hyperlipidemia, unspecified; Z01.810 Encounter for preprocedural cardiovascular examination
CPT/HCPCS: 36415; 80048; 85025; 85610; 93325; A9270; C8925; J2704; J7030

== ENCOUNTER 2022-11-04 09:51 | Inpatient (IN) | payer MEDICARE ==
[~2022-11-04] VITALS: Ht 172.7 cm; Wt 93.3 kg
[~2022-11-04 09:51] MED LIST changes: +CLOP75 PO
[2022-11-04 10:20] LABS: BASOPHILS ABSOLUTE AUTO 0.13 K/mm3 (0.00-0.23); BASOPHILS PERCENT AUTO 1 % (0-2); EOSINOPHILS ABSOLUTE AUTO 0.07 K/mm3 (0.00-0.68); EOSINOPHILS PERCENT AUTO 0 % (0-6); Hematocrit 44.4 % (33.0-51.0); Hemoglobin 14.4 g/dL (11.5-16.0); IMMATURE GRAN ABSOLUTE AUTO 0.57 K/mm3 (0.00-0.10); IMMATURE GRAN PERCENT AUTO 3 % (0-1); LYMPHOCYTES ABSOLUTE AUTO 1.75 K/mm3 (0.84-5.20); LYMPHOCYTES PERCENT AUTO 10 % (21-46); MONOCYTES PERCENT AUTO 10 % (4-13); Mean Corpuscular HGB 29.6 pg (26.0-34.0); Mean Corpuscular HGB Conc 32.4 g/dL (31.5-36.5); Mean Corpuscular Volume 91 fL (80-100); Mean Platelet Volume 11.2 fL (9.1-12.4); NEUTROPHILS ABSOLUTE AUTO 13.31 K/mm3 (1.96-9.15); NEUTROPHILS PERCENT AUTO 76 % (41-73); Platelet Count 313 K/mm3 (150-400); RDW Coefficient Variation 15.4 % (11.7-14.2); RDW Standard Deviation 51.7 fL (35.1-46.3); Red Blood Cell Count 4.87 M/mm3 (3.80-5.20); White Blood Cell Count 17.63 K/mm3 (4.00-11.30)
[2022-11-04] MEDS ORDERED: Prozac20 MG PO (10:27)
[2022-11-04] MEDS ORDERED: FURO20 PO ×2 (10:27→11:11)
[2022-11-04 10:33] LABS: Albumin, Blood 2.8 g/dL (3.4-5.0); Albumin/Globulin Ratio 0.8 (0.8-1.8); Bilirubin, Total 0.3 mg/dL (0.1-1.0); Bun/Creatinine Ratio 14.6 (12.0-20.0); Creatinine, Blood 1.3 mg/dL (0.40-1.00); Globulin, Blood 3.7 g/dL (2.2-4.0); Potassium, Blood 4.1 mmol/L (3.5-5.5); Total Protein, Blood 6.5 g/dL (6.4-8.2)
[2022-11-04 10:38] LABS: International Normalized Ratio 1.1; Prothrombin Time Results 11.5 Sec (9.7-11.5)
[2022-11-04] MEDS ORDERED: PREG200 PO (11:12)
[2022-11-04] MEDS ORDERED: Bisoprolol Fumar5 MG PO (11:12)
[2022-11-04] MEDS ORDERED: ZINC50 M3 PO (11:13)
[2022-11-04] MEDS ORDERED: ALEN70 PO (11:13)
[2022-11-04] MEDS ORDERED: OXYC10TA19 PO (11:14)
[2022-11-04 15:32] LABS: CHOL/HDL RATIO 5.4; Cholesterol 198 mg/dL (50-200); HDL Cholesterol 37 mg/dL (>39); LDL/HDL RATIO 3.5; Low Density Lipoprotein Chol 128 mg/dL (0-110); Triglycerides 163 mg/dL (30-160); Very Low Density Lipoprot Chol 32 mg/dL (6-32)
[2022-11-04 16:03] LABS: Hematocrit 44.1 % (33.0-51.0); Hemoglobin 14.3 g/dL (11.5-16.0)
[2022-11-04 17:35] VITALS: BP 114/66
[2022-11-04 20:08] VITALS: BP 109/71
[2022-11-04 22:25] VITALS: BP 112/73
[2022-11-05] VITALS (8 sets, daily range): BP systolic 100–129; BP diastolic 56–88
[2022-11-05 03:58] LABS: BASOPHILS ABSOLUTE AUTO 0.09 K/mm3 (0.00-0.23); BASOPHILS PERCENT AUTO 1 % (0-2); EOSINOPHILS ABSOLUTE AUTO 0.23 K/mm3 (0.00-0.68); EOSINOPHILS PERCENT AUTO 2 % (0-6); Hematocrit 41.6 % (33.0-51.0); Hemoglobin 13.6 g/dL (11.5-16.0); IMMATURE GRAN ABSOLUTE AUTO 0.44 K/mm3 (0.00-0.10); IMMATURE GRAN PERCENT AUTO 3 % (0-1); LYMPHOCYTES ABSOLUTE AUTO 2.59 K/mm3 (0.84-5.20); LYMPHOCYTES PERCENT AUTO 19 % (21-46); MONOCYTES ABSOLUTE AUTO 1.89 K/mm3 (0.16-1.47); MONOCYTES PERCENT AUTO 14 % (4-13); Mean Corpuscular HGB 30.3 pg (26.0-34.0); Mean Corpuscular HGB Conc 32.7 g/dL (31.5-36.5); Mean Corpuscular Volume 93 fL (80-100); Mean Platelet Volume 11.5 fL (9.1-12.4); NEUTROPHILS ABSOLUTE AUTO 8.42 K/mm3 (1.96-9.15); NEUTROPHILS PERCENT AUTO 62 % (41-73); Platelet Count 309 K/mm3 (150-400); RDW Coefficient Variation 15.5 % (11.7-14.2); RDW Standard Deviation 52.9 fL (35.1-46.3); Red Blood Cell Count 4.49 M/mm3 (3.80-5.20); White Blood Cell Count 13.66 K/mm3 (4.00-11.30)
[2022-11-05 04:14] LABS: Bun/Creatinine Ratio 12.4 (12.0-20.0); Calcium, Blood 8.1 mg/dL (8.5-10.1); Creatinine, Blood 0.97 mg/dL (0.40-1.00); Potassium, Blood 3.7 mmol/L (3.5-5.5)
--- NOTE | 2022-11-05 04:52 | NUR ---
SHIFT SUMMARY: PT IS ORIENTED X 4, DROWSY BUT WAKES TO NOISE. SPEECH IS SLURRED AND DIFFICULT TO UNDERSTAND, BUT IS CLEARER WHEN PT SPEAKS SLOWLY. DENIES ANY CHEST PAIN DURING THIS SHIFT. HR CONVERTS BACK AND FORTH FROM SR TO A-FIB. PT REPORTS THIS IS NORMAL FOR HER AND SHE IS ABLE TO TELL WHEN IT OCCURS BY SLIGHT SOB. GARCIE CHECKS Q4H HAVE SHOWN NO SIGNIFICANT CHANGE THROUGHOUT SHIFT. PUPILS ARE ROUND, SLUGGISH TO LIGHT BUT REACTIVE. LEFT SIDED FACIAL DROOP NOTED SINCE HER ADMISSION. PT REPOERTS SHE IS UNABLE TO FEEL TOUCH ON LEFT HAND BUT IS ABLE TO LIGHTLY SQUEEZE FINGERS WHEN INSTRUCTED. PT IS ABLE TO FEEL SENSATION IN LEFT FOOT. LEFT FOOT MENT APPEARS WEAK BUT ASSESSMENT INCOMPLETE DUE TO RIGHT LEG COMPARISON UNABLE SINCE RIGHT LEG IN CAST. CMS CHECKS IN ALL FOUR EXTREMITIES INTACT. HEPRIN GTT INFUSING ORDERED. PT HAD CT SCAN COMPLETED WHEN THERAPUTIC LEVEL OF HEPRIN REACHED, RESULTS IN PT CHART. MEDICATED WITH PRN MEDICATION FOR PAIN, SEE EMAR. PT REPROTS PAIN IN RIGHT LEG AND BACK. GOOD RESULTS OBTAINED FROM PRN PAIN MEDICATION.
--- NOTE | 2022-11-05 07:15 | NUR ---
PATIENT CONSENT STATEMENT. PATIENT CONSENTED THIS 2ND [facility]NA[facility] TO PARTICIPATE IN HER CARE TODAY 11/05/2022. CT
--- NOTE | 2022-11-05 10:00 | NUR ---
PAIN REPORTS UNCONTROLLED PAIN AT THIS TIME IN HER BILATERAL SHOULDERS, BACK, AND RIGHT LOWER EXTREMITY. OFFERED PT ICE BUT SHE DECLINED. REPOSITIONED, PROVIDED WARM BLANKET, AND DISTRACTION THROUGH CONVERSATION. DISCUSSED THAT OXYCODONE WAS DISCONTINUED BECAUSE OF CONCERN FOR SEDATION AND CURRENT DX OF ISCHEMIC STROKE. AT BEDSIDE AND CLARIFIED THAT PT IS RECEIVING HER LYRICA PRESCRIBED.
--- NOTE | 2022-11-05 11:00 | NUR ---
PT PAIN VERBALIZED AT A 12 EARLIER TODAY. INTERVENTIONS PERFORMED AND PATIENT IS NOW SLEEPING PEACEFULLY.
--- NOTE | 2022-11-05 13:45 | NUR ---
PT VISITED BY PHYSICAL THERAPY AND CASE MANAGEMENT. PT ABLE TO SIT UP AT BEDSIDE WITH PHYSICAL THERAPIST. SHE WILL BE RECOMMENDING A SNIF PLACEMENT POST DISCHARGE. CASE MANAGEMENT STATED SHE WILL DISCUSS HER ASSESSMENT WITH DR. MCCLELLAND. ALSO STATED SHE WILL DISCUSS INCREASED PAIN WITH DR. MCCLELLAND.
--- NOTE | 2022-11-05 16:25 | NUR ---
Met with pt this am. She was brought to [facility] after increased confusion and L sided weakness. She has an extensive medical history, and currently has a broken, casted RLE, L sided weakness and facial droop. She and her state she is due for bilateral "shoulder surgery" due to the balls being from the sockets. Initially, the pt was stating she wanted to go home after this hospitalization, but after speaking to both myself and PT, both she and have agreed she may need follow up in the SNF.
[2022-11-05 16:31] LABS: Hematocrit 42.5 % (33.0-51.0); Hemoglobin 13.8 g/dL (11.5-16.0)
--- NOTE | 2022-11-05 18:31 | NUR ---
SHIFT SUMMARY. PT SHOWING IMPROVED ALERTNESS AND CASEWORKER STRENGTH THROUGHOUT THE DAY COMPARED TO START OF SHIFT. PT EXIBITING CONFUSION WITH CONVERSATION AT TIMES BUT IS A/O X4. PT HAS BEEN INCONTINENT OF URINE AND STOOL AND USES THE CALL LIGHT APPROPRIATELY FOR THESE REQUESTS. PT SOMETIMES CALLS OUT FOR HELP INSTEAD OF USING LIGHT. PT HAS INCREASED PAIN IN LUMBAR SPINE, RIGHT SHOULDER, AND HEADACHE. PAIN UNCONTROLLED WITH TYLENOL, NEW ORDERS RECEIVED FOR ULTRAM AND HAS HELPED MINIMALLY. PREVIOUS OXYCODONE ORDER D/C D/T CONCERN FOR SEDATION WITH NEURO STATUS. PT SEEN BY SPEECH THERAPY, CASE MANAGEMENT, AND PHYSICAL THERAPY. PT ON PUREE DIET. PT GOT UP TO BEDSIDE. PT MAY GO TO SNIF POST DISCHARGE D/T WEAKNESS IF PT AND FAMILY AMENABLE. PT METOPROLOL HELD THIS AM D/T SOFT B/P. PT HAD NO SOB OR CP DURING SHIFT, MONITORED CLOSELY D/T HX OF AFIB. ON TELE AND IS SINUS R WITH PAC AND PVCS. PT O2 WAS ON 1L AT START OF SHIFT, TITRATED UP TO 3L, SATS ABOVE 95% WITH TITRATION.
[2022-11-06 04:25] LABS: BASOPHILS ABSOLUTE AUTO 0.09 K/mm3 (0.00-0.23); BASOPHILS PERCENT AUTO 1 % (0-2); EOSINOPHILS ABSOLUTE AUTO 0.22 K/mm3 (0.00-0.68); EOSINOPHILS PERCENT AUTO 2 % (0-6); Hematocrit 41.4 % (33.0-51.0); Hemoglobin 13.3 g/dL (11.5-16.0); IMMATURE GRAN ABSOLUTE AUTO 0.38 K/mm3 (0.00-0.10); IMMATURE GRAN PERCENT AUTO 3 % (0-1); LYMPHOCYTES ABSOLUTE AUTO 2.44 K/mm3 (0.84-5.20); LYMPHOCYTES PERCENT AUTO 18 % (21-46); MONOCYTES ABSOLUTE AUTO 1.91 K/mm3 (0.16-1.47); MONOCYTES PERCENT AUTO 14 % (4-13); Mean Corpuscular HGB Conc 32.1 g/dL (31.5-36.5); Mean Corpuscular Volume 94 fL (80-100); Mean Platelet Volume 11.8 fL (9.1-12.4); NEUTROPHILS ABSOLUTE AUTO 8.21 K/mm3 (1.96-9.15); NEUTROPHILS PERCENT AUTO 62 % (41-73); Platelet Count 362 K/mm3 (150-400); RDW Coefficient Variation 15.5 % (11.7-14.2); Red Blood Cell Count 4.43 M/mm3 (3.80-5.20); White Blood Cell Count 13.25 K/mm3 (4.00-11.30)
[2022-11-06 04:33] VITALS: BP 137/74
[2022-11-06 04:39] LABS: Albumin, Blood 2.6 g/dL (3.4-5.0); Anion Gap 0 mmol/L (6-16); Blood Urea Nitrogen 9 mg/dL (8-24); Bun/Creatinine Ratio 11.3 (12.0-20.0); CO2, Blood 28 mmol/L (21-32); Calcium, Blood 8.4 mg/dL (8.5-10.1); Chloride, Blood 111 mmol/L (98-108); Glomerular Filtration Rate 81 (60-); Glucose, Blood 100 mg/dL (70-99); Phosphorus, Blood 2.4 mg/dL (2.5-4.9); Potassium, Blood 3.4 mmol/L (3.5-5.5); Sodium, Blood 139 mmol/L (136-145)
--- NOTE | 2022-11-06 06:11 | NUR ---
SHIFT SUMMARY: A&OX4 WITH MOMENTS OF FORGETFULNESS. PT HAS DEVELOPED HALLUCINATIONS THROUGHOUT NIGHT, THINKING FAMILY IS IN ROOM WITH HER, UNABLE TO REDIRECT. SPOKE WITH DANNI CHARGE NURSE, INFORMED THIS HAS BEEN PT'S BASELINE ON PREVIOUS ADMISSION. OTHER THEN DEVELOPMENT OF HOLLUCINATIONS [place] HAS REMAINED THE SAME. HR HAS BEEN SR THROUGHOUT SHIFT IN THE 80'S. O2 SAT > 92% ON 1-2LPM. PT DENIES ANY SOB OR CHEST PAIN. REPORTS PAIN IN RIGHT FOOT, MEDICATED WITH PRN PAIN MEDS, SEE EMAR. PT CONTINUES TO HAVE LEFT FACIAL DROOP WITH SLURRED SPEECH. LEFT HAND PLAN NURSE IS WEAKER THEN RIGHT BUT PRESENT, PT REPORTS BEING UNABLE TO FEEL TOUCH ON LEFT ARM AT ALL. UNABLE TO DERTERMIN BILATERALY FOOT STRENGTH DUE TO CAST ON RIGHT FOOT BUT STRENGTH IN LEFT FOOT APPEARS FAIRLY STRONG. HEPRIN GTT INFUSING ORDERED. REPOSITIONS SELF WELL IN BED. CALL LIGHT IN REACH.
[2022-11-06 07:07] VITALS: BP 116/95
--- NOTE | 2022-11-06 08:08 | NUR ---
Received report from Avani Corbin. Patient awake and able to communicate her needs. Her speech has slight slurr to words but understandable. She is on RA and sats >90%. She has left facial droop to smile and weaknes to left distal extremities. PCT gave bath and transferred to recliner with two assist. She has attends in place. She has 20 ga IV to LFA and is infusing heparin at 13 unit/kg/hr.
--- NOTE | 2022-11-06 11:30 | NUR ---
Patients neuro's on left side remain unchanged. Family at bedside. She went down for repeat CT . When back she went nack to bed. VSS. She was able to tolerate PO meds with sips of water. Dr Vizcarra has been by to assess and she is med with tele.
[2022-11-06 12:12] VITALS: BP 105/75
--- NOTE | 2022-11-06 15:30 | NUR ---
Patient has been off and on bedpand for c/o needing to pee and no results. She self p[ositions in bed. She is on RA and sats >90%, VSS. She was up with one assit to bedside cammode for large liquid brown stool. and then assisted back to bed with one. She tolerats liquids well. Gave her fan as she stated neck sweating.
[2022-11-06 17:00] LABS: Hematocrit 45.3 % (33.0-51.0); Hemoglobin 14.3 g/dL (11.5-16.0)
--- NOTE | 2022-11-06 17:47 | NUR ---
Reviewed POLST with pt after printing it off. Pt remains committed to limited code of intubation only, meaning ok with intubation for an instance of resp failure, but no resucitation under any circumstance. Order received from Dr. Oden.
[2022-11-06 18:03] VITALS: BP 135/75
--- NOTE | 2022-11-06 18:30 | NUR ---
Patient remains awake and on RA and sats >90%. Family has been at bedside off and on. She has not really slept today and has increased confusion although she is able to hold a good conversation with staff and family. Neuro's to left side really remain unchanged and has left facial droop and minimal use of left side
[2022-11-06 19:49] VITALS: BP 135/78
[2022-11-07 00:20] VITALS: BP 121/68
[2022-11-07 03:46] VITALS: BP 100/64
[2022-11-07 03:57] LABS: BASOPHILS ABSOLUTE AUTO 0.08 K/mm3 (0.00-0.23); BASOPHILS PERCENT AUTO 1 % (0-2); EOSINOPHILS ABSOLUTE AUTO 0.21 K/mm3 (0.00-0.68); EOSINOPHILS PERCENT AUTO 2 % (0-6); Hematocrit 41.5 % (33.0-51.0); Hemoglobin 13.5 g/dL (11.5-16.0); IMMATURE GRAN ABSOLUTE AUTO 0.28 K/mm3 (0.00-0.10); IMMATURE GRAN PERCENT AUTO 2 % (0-1); LYMPHOCYTES PERCENT AUTO 19 % (21-46); MONOCYTES ABSOLUTE AUTO 1.66 K/mm3 (0.16-1.47); MONOCYTES PERCENT AUTO 13 % (4-13); Mean Corpuscular HGB 29.8 pg (26.0-34.0); Mean Corpuscular HGB Conc 32.5 g/dL (31.5-36.5); Mean Corpuscular Volume 92 fL (80-100); Mean Platelet Volume 11.7 fL (9.1-12.4); NEUTROPHILS ABSOLUTE AUTO 8.15 K/mm3 (1.96-9.15); NEUTROPHILS PERCENT AUTO 64 % (41-73); Platelet Count 396 K/mm3 (150-400); RDW Coefficient Variation 15.5 % (11.7-14.2); RDW Standard Deviation 51.9 fL (35.1-46.3); Red Blood Cell Count 4.53 M/mm3 (3.80-5.20); White Blood Cell Count 12.78 K/mm3 (4.00-11.30)
[2022-11-07 04:19] LABS: Albumin, Blood 2.6 g/dL (3.4-5.0); Anion Gap 2 mmol/L (6-16); Blood Urea Nitrogen 10 mg/dL (8-24); Bun/Creatinine Ratio 11.8 (12.0-20.0); CO2, Blood 24 mmol/L (21-32); Calcium, Blood 8.5 mg/dL (8.5-10.1); Chloride, Blood 110 mmol/L (98-108); Creatinine, Blood 0.85 mg/dL (0.40-1.00); Glomerular Filtration Rate 75 (60-); Glucose, Blood 113 mg/dL (70-99); Phosphorus, Blood 2.6 mg/dL (2.5-4.9); Potassium, Blood 3.4 mmol/L (3.5-5.5); Sodium, Blood 136 mmol/L (136-145)
--- NOTE | 2022-11-07 06:29 | NUR ---
SHIFT SUMMARY: PT HAS BEEN ALERT, ORIENTATION DIFFICULT TO DERTERMIN, AT TIMES X 4 AT OTHER TIMES X 2. PT CONTINUES TO HALLUCINATE THAT FAMILY MEMBERS ARE IN HER ROOM. REORIENTED WITH DIFFICULTY. HR HAS BEEN SINUS RHYTHM IN THE 80'S. O2 SATS > 92% ON 1 LPM WHEN SLEEPING, RA WHEN AWAKE. UP TO [facility] WITH TWO ASSIST, ABLE TO STAND AND PIVOT. VOIDING CLEAR, YELLOW URINE. ABLE TO PUT WAIT ON LEFT LEG THOUGH WEAK. LEFT ARM WEAK BUT PT ABLE TO MOVE/SQUEEZE HAND WITH CONCENTRATION. NO SENSATOIN IN LEFT ARM. NO ACUTE CHANGES NOTED DURING THIS SHIFT. BED ALARM ON, CALL LIGHT IN REACH.
[2022-11-07 08:13] VITALS: BP 123/90
--- NOTE | 2022-11-07 16:23 | NUR ---
UPon receiving a referral for spiritual care, I visited the pateint. She talks about her stroke and how emotioanlly painful it is to go through. 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 She talks about her life growing with 4 brothers and how close they are today. She aslo shares about the of her son when he was 19y/o. I provide therapeutic listening, grief support, ideas on coping, and prayer. PAtient responded well and showed signs of greater peace and catharsis. I will continue to remain available to patient and family.
[2022-11-07 16:36] VITALS: BP 103/68
--- NOTE | 2022-11-07 18:50 | NUR ---
SHIFT SUMMARY: PT HAS BEEN A&Ox3-4 W/MOMENTS OF CONFUSION THAT SEEM TO CLEAR EASILY W/REORIENTATION. PT's CONFUSION SEEMS TO BE RELATED TO THINKING HER COUCH AND DOGS ARE IN THE NEXT ROOM. PT's SPOUSE ENFORCES THAT THERE IS A ROOM LIKE THE ONE THE PT DESCRIBES AT THEIR HOME. PT REMINDED THAT SHE ISN'T AT HOME, STATES SHE IS AWARE THAT SHE IS AT THE [facility]. L SIDE WEAKNESS CONTINUES, PT REPORTS IMPROVED SENSATION TO L ARM, ABLE TO MOVE ALL EXTREMITIES. O2 SATS MAINTAINED >93% ON RA OR 1 L/MIN NC. SR ON MONITOR, RATE 70s-80s, PT DENIES CHEST PAIN. PT IS ABLE TO MAKE NEEDS KNOWN, REQUIRING 2 PERSON ASSIST W/FWW TO STAND/PIVOT FOR BSC. PT WORKS WITH PT/OT TODAY. DIET HAS BEEN ADVANCED TO MECH SOFT. PT RESTING QUIETLY IN BED. WILL CONTINUE TO MONITOR AND TREAT ACCORDINGLY UNTIL CHANGE OF SHIFT.
[2022-11-07 20:22] VITALS: BP 117/72
--- NOTE | 2022-11-07 21:53 | NUR ---
ASSUMPTION OF CARE/ASSESSMENT: ASSUMED CARE OF PT AT 1900; PT LAYING IN BED AND A&O X 4, BUT SOMETIMES OBSERVED TO HAVE INTERMITTEN CONFUSION. PT IS FOLLOWING COMMANDS AND COMMUNICATING NEEDS EFFECTIVELY. LUNG SOUNDS ARE COARSE THROUGHOUT WITH SPO2 91<. SR ON MONITOR WITH HR 80'S, AND SBP 120'S; NO C/O CHEST PAIN AT THIS TIME. PT HAS HYPERACTIVE BS IN ALL QUADRANTS, NO ABD TENDERNESS ON PALPATION. PT USING BEDSIDE COMMODE FOR VOIDING/ELIMINATION NEEDS. PT HAD A LARGE, SOFT BM. PT HAD C/O PAIN IN R. SHOULDER AND RLE THAT WAS 9/10; MEDICATED PER EMAR. PT SKIN WARM AND INTACT. BED LOWERED, CALL LIGHT IN REACH, WILL CONTINUE TO MONITOR.
[2022-11-08 00:34] VITALS: BP 114/69
[2022-11-08 04:09] LABS: BASOPHILS ABSOLUTE AUTO 0.09 K/mm3 (0.00-0.23); BASOPHILS PERCENT AUTO 1 % (0-2); EOSINOPHILS ABSOLUTE AUTO 0.29 K/mm3 (0.00-0.68); EOSINOPHILS PERCENT AUTO 3 % (0-6); Hematocrit 40.9 % (33.0-51.0); Hemoglobin 13.3 g/dL (11.5-16.0); IMMATURE GRAN ABSOLUTE AUTO 0.24 K/mm3 (0.00-0.10); IMMATURE GRAN PERCENT AUTO 2 % (0-1); LYMPHOCYTES PERCENT AUTO 19 % (21-46); MONOCYTES ABSOLUTE AUTO 1.46 K/mm3 (0.16-1.47); MONOCYTES PERCENT AUTO 13 % (4-13); Mean Corpuscular HGB Conc 32.5 g/dL (31.5-36.5); Mean Corpuscular Volume 92 fL (80-100); Mean Platelet Volume 11.9 fL (9.1-12.4); NEUTROPHILS ABSOLUTE AUTO 6.89 K/mm3 (1.96-9.15); NEUTROPHILS PERCENT AUTO 62 % (41-73); Platelet Count 416 K/mm3 (150-400); RDW Coefficient Variation 15.6 % (11.7-14.2); RDW Standard Deviation 52.7 fL (35.1-46.3); Red Blood Cell Count 4.44 M/mm3 (3.80-5.20); White Blood Cell Count 11.07 K/mm3 (4.00-11.30)
[2022-11-08 04:27] LABS: Albumin, Blood 2.6 g/dL (3.4-5.0); Anion Gap 1 mmol/L (6-16); Blood Urea Nitrogen 12 mg/dL (8-24); Bun/Creatinine Ratio 13.8 (12.0-20.0); CO2, Blood 25 mmol/L (21-32); Calcium, Blood 8.3 mg/dL (8.5-10.1); Chloride, Blood 111 mmol/L (98-108); Creatinine, Blood 0.87 mg/dL (0.40-1.00); Glomerular Filtration Rate 73 (60-); Glucose, Blood 102 mg/dL (70-99); Phosphorus, Blood 2.6 mg/dL (2.5-4.9); Potassium, Blood 3.9 mmol/L (3.5-5.5); Sodium, Blood 137 mmol/L (136-145)
[2022-11-08 05:21] VITALS: BP 121/73
--- NOTE | 2022-11-08 06:08 | NUR ---
SHIFT SUMMARY: NO ACUTE CHANGES THROUGHOUT THE NIGHT. PT WAS ABLE TO SLEEP ON AND OFF THROUGHOUT THE NIGHT; PT HAD C/O 9/10 PAIN IN R. SHOULDER, LOWER BACK, R. ANKLE, AND TOOTH PAIN THIS SHIFT, MEDICATED PER EMAR. PT UP TO BEDSIDE COMMODE ONCE THIS SHIFT AND HAD A LARGE, SOFT BM. PT'S LEFT ARM ABLE TO DO MORE GROSS MOTOR SKILLS BUT STILL STRUGGLING WITH FINE MOTOR SKILLS; PRICING ANALYST STRENGTH IN LEFT HAND SLIGHTLY WEAKER COMPARED TO RIGHT HAND. PT TOLERATED Q2HR TURNS THIS SHIFT. BED LOWERED, CALL LIGHT IN REACH, WILL CONTINUE TO MONITOR UNTIL ONCOMING RN ARRIVES.
[2022-11-08 08:37] VITALS: BP 110/61
[2022-11-08 12:00] VITALS: BP 130/73
[2022-11-08 16:12] VITALS: BP 121/87
--- NOTE | 2022-11-08 19:31 | NUR ---
SHIFT SUMMARY: ASSUMED CARE OF PATIENT UPON HER TRANSFER FROM PCU. A&O X 4, L FACIAL DROOP, AND GROSS MOVEMENT OF LUE AND LLE. C/O PAIN IN R ANKLE AND KNOWLES; MEDICATED PER EMAR. NO EVENTS ON TELEMETRY. FAMILY BROUGHT DINNER FOR PATIENT.
[2022-11-08 19:54] VITALS: BP 113/71
[2022-11-09 05:29] VITALS: BP 137/85
--- NOTE | 2022-11-09 06:19 | NUR ---
NO NEURO CHANGES NOTED DURING SHIFT, SLEPT MOST OF SHIFT. GROSS MOTOR MOVEMENT INTACT ON AFFECTED SIDE, DIFFICULTY WITH FINE MOTOR SKILLS. VSS ON RA, MAKES NEEDS KNOWN, PLEASANT.
[2022-11-09 07:35] VITALS: BP 134/91
[2022-11-09 16:50] VITALS: BP 144/72
[2022-11-09 19:29] VITALS: BP 131/81
[2022-11-09 20:04] VITALS: BP 140/104
--- NOTE | 2022-11-09 20:51 | NUR ---
SHIFT SUMMARY PT A&OX4 AND COOPERATIVE OF CARE. PT C/O SHOULDER AND LEG PAIN. REPOSITIONED AND MEDICATED PER EMAR. NO OTHER COMPLAINTS REPORTED. PT WORKED WITH OT BUT DECLINED TO WORK WITH PHYSICAL THERAPY STATING SHE WANTED TO REST. PT VERBAILZED FEELING COLD D/T NEUROPATHY AND REQUESTED WARM BLANKETS T/O DAY. CALLS APPORPRIATLY. UP TO BC WITH 2 ASSIST. BED IN LOWEST POSITION AND CALL LIGHT IN REACH.
--- NOTE | 2022-11-10 04:28 | NUR ---
SHIFT SUMMARY; THE PT HAS BEEN RESTING IN BED T/O THE NIGHT. THE PT IS AXO X4. THE PT HAS CONVERTED TO A-FIB TWICE THIS EVENING. THE PT FIRST CONVERTED TO A-FIB AROUND 1829 AND THEN BACK TO SINUS AROUND 1999. THE PT THEN CONVERTED BACK INTO A-FIB AND REMAINS IN A-FIB OF 247. THE PT IS A 1-2 ASSIST TO THE BSC, HOWEVER, THE PT PREFERS TO USE THE BED BOSS BECAUSE SHE IS NON-WEIGHT BEARING ON HER R LEG DUE TO RESENTLY FACTURING IT WELL. CURRENTLY THE PT IS RESTING IN BED WITH THE BED IN THE LOWEST POSITION AND THE CALL LIGHT AT BEDSIDE. THE PT DENIES ANY SOB, CHEST PAIN/PRESSURE OR N/V.
[2022-11-10 04:32] VITALS: BP 114/79
[2022-11-10 07:29] VITALS: BP 125/83
[2022-11-10] MEDS ORDERED: Acetaminophen650 M1 PO (15:08)
[2022-11-10] MEDS ORDERED: METO50ER PO (15:08)
[2022-11-10] MEDS ORDERED: TRAM50 PO (15:08)
[2022-11-10] MEDS ORDERED: ASPI325 PO (15:09)
[2022-11-10] MEDS ORDERED: ATOR80 PO (15:09)
[2022-11-10] MEDS ORDERED: LIDO700A20 TOP (15:10)
[2022-11-10] MEDS ORDERED: MELATONIN5 M1 PO (15:10)
[2022-11-10 15:27] LABS: SARS-Cov-2 (COVID-19) PCR, MMC Negative (NEGATIVE)
--- NOTE | 2022-11-10 16:23 | NUR ---
LATE ENTRY/DC TO [facility]: PT TO [facility] VIA W/C MEDICAL TRANSPORT. ALL PERSONAL BELONGINGS SENT WITH PT. PIV DC'D WITH CATH TIP INTACT, NO REDNESS OR SWELLING NOTED. DC PKT GIVEN TO TRANSPORT PERSONNEL WITH FACESHEET. REPORT CALLED TO NARA AT [facility].
== END 2022-11-10 15:50 | DRG 64 ==
LOC: ER 09:51 → EOR 09:52 → ER 09:52 → PCU 13:18 → MEDS 13:18 → PCU 17:21 → MEDS 11-08 17:01
PROVIDERS: Emergency Medicine; Family Medicine; ADMIT Internal Medicine
DX: I63.511 Cerebral infarction due to unspecified occlusion or stenosis of right middle cerebral artery (principal); G92.8 Other toxic encephalopathy; F11.20 Opioid dependence, uncomplicated; G81.94 Hemiplegia, unspecified affecting left nondominant side; J84.9 Interstitial pulmonary disease, unspecified; N17.9 Acute kidney failure, unspecified; R29.705 NIHSS score 5; Z20.822 Contact with and (suspected) exposure to COVID-19; E87.6 Hypokalemia; E83.39 Other disorders of phosphorus metabolism; E88.09 Other disorders of plasma-protein metabolism, not elsewhere classified; R47.1 Dysarthria and anarthria; M79.7 Fibromyalgia; F41.9 Anxiety disorder, unspecified; G47.33 Obstructive sleep apnea (adult) (pediatric); G89.4 Chronic pain syndrome; I48.0 Paroxysmal atrial fibrillation; J45.909 Unspecified asthma, uncomplicated; M06.9 Rheumatoid arthritis, unspecified; R29.810 Facial weakness; Z99.89 Dependence on other enabling machines and devices; Z90.89 Acquired absence of other organs; Z98.890 Other specified postprocedural states; Z87.891 Personal history of nicotine dependence; Z88.8 Allergy status to other drugs, medicaments and biological substances; Z91.048 Other nonmedicinal substance allergy status; Z79.51 Long term (current) use of inhaled steroids; Z79.899 Other long term (current) drug therapy
CPT/HCPCS: 36415; 70450; 70496; 70498; 71045; 80048; 80053; 80061; 80069; 82947; 84132; 85014; 85018; 85025; 85520; 85610; 85730; 92526; 92610; 93005; 93010; 93308; 93321; 93970; 94640; 94664; 94760; 94762; 96365-59; 96366-59; 96372; 96375-59; 96376; 97110; 97112; 97162; 97166; 97530; 97535; 99291-25; A9270; G0378; J1644; J1650; J3010; J7030; Q3014; Q9967; U0004

== ENCOUNTER → 2023-01-02 | Outpatient (CLI) | payer MEDICARE ==
[~2023-01-02] MED LIST changes: +ASPI325 PO; +ATOR80 PO; +Acetaminophen650 M1 PO; +METO50ER PO; +OXYC10TA19 PO; +Prozac20 MG PO; +TRAM50 PO; +ZINC50 M3 PO
[2023-01-03 15:55] LABS: Source, Urine Clean Catch
[2023-01-03 17:40] LABS: Appearance, Urine Clear (Clear); Bilirubin, Urine Neg (Neg); Blood, Urine Neg (Neg); Color, Urine Yellow (P-Yellow); Glucose Qualitative, Urine Neg (Neg); Ketones, Urine Neg (Neg); Leukocyte Esterase, Urine Neg (Neg); Nitrite, Urine Neg (Neg); Protein, Urine Neg (Neg); Urobilinogen, Urine NORM (Normal); pH, Urine 6.5 (5.0-8.0)
== END ==
LOC: LAB SHORT 15:50 → LAB 15:50 → LAB SHORT 01-03 15:50
PROVIDERS: Student in an Organized Health Care Education/Training Program
DX: R35.0 Frequency of micturition (principal)
CPT/HCPCS: 81003

== ENCOUNTER 2023-01-17 14:55 | Inpatient (IN) | payer MEDICARE ==
[~2023-01-17] VITALS: Ht 172.7 cm; Wt 77.1 kg
[2023-01-17 15:43] LABS: Base Excess Venous 4.8 mmol/L; Bicarbonate Venous 27.8 mmol/L (24.0-30.0); PCO2 Venous 47.1 mmHg (38-42); pH Blood Venous 7.41 (7.34-7.37)
[2023-01-17 15:50] LABS: Hematocrit 41.2 % (33.0-51.0); Hemoglobin 13.1 g/dL (11.5-16.0); Mean Corpuscular HGB Conc 31.8 g/dL (31.5-36.5); Mean Corpuscular Volume 85 fL (80-100); Mean Platelet Volume 11.8 fL (9.1-12.4); Platelet Count 488 K/mm3 (150-400); RDW Coefficient Variation 18.3 % (11.7-14.2); RDW Standard Deviation 55.2 fL (35.1-46.3); Red Blood Cell Count 4.85 M/mm3 (3.80-5.20)
[2023-01-17 16:29] LABS: White Blood Cell Count 16.16 K/mm3 (4.00-11.30)
[2023-01-17 16:33] LABS: Albumin, Blood 2.4 g/dL (3.4-5.0); Albumin/Globulin Ratio 0.6 (0.8-1.8); Bilirubin, Total 0.6 mg/dL (0.1-1.0); Bun/Creatinine Ratio 20.9 (12.0-20.0); Calcium, Blood 9.2 mg/dL (8.5-10.1); Creatinine, Blood 1.1 mg/dL (0.40-1.00); Globulin, Blood 4.3 g/dL (2.2-4.0); Potassium, Blood 3.6 mmol/L (3.5-5.5); Total Protein, Blood 6.7 g/dL (6.4-8.2)
[2023-01-17 16:34] LABS: BAND PERCENT MAN 9 % (0-8); BASOPHILS ABSOLUTE MAN 0.16 K/mm3 (0.00-0.23); BASOPHILS PERCENT MAN 1 % (0-2); EOSINOPHILS ABSOLUTE MAN 0.16 K/mm3 (0.00-0.68); EOSINOPHILS PERCENT MAN 1 % (0-6); LYMPHOCYTES PERCENT MAN 18 % (21-46); MONOCYTES ABSOLUTE MAN 1.93 K/mm3 (0.16-1.47); MONOCYTES PERCENT MAN 12 % (4-13); NEUTROPHILS ABSOLUTE MAN 10.98 K/mm3 (1.96-9.15); SEG NEUTROPHILS PERCENT MAN 59 % (41-73); TOTAL CELLS COUNTED 100
[2023-01-17 18:31] LABS: International Normalized Ratio 1.25
[2023-01-17 18:33] LABS: Anti-Xa UFH, PHA Monitoring >1.50 IU/mL
[2023-01-17 19:06] VITALS: BP 107/76
--- NOTE | 2023-01-17 19:19 | NUR ---
ARRIVAL TO ROOM 1845 NEW ADMIT TO UNIT FROM ER FOR ACUTE RESP FAILURE WITH HYPOXIA, TRACE PNEUMONIA, AND PE'S. SLIDE TRANSFERRED FROM [facility] TO BED. ALERT AND ORIENTED. SPO2 90-95% ON 4L VIA NC. RR 20 WITH LABORED BREATHING. OTHER VSS. TACHY 120-130S ON TELE. REPORT GIVEN TO ENGINEERING COORDINATOR RN.
[2023-01-17 20:04] VITALS: BP 109/63
[2023-01-17 23:39] VITALS: BP 124/78
[2023-01-18 03:15] LABS: Bun/Creatinine Ratio 18.9 (12.0-20.0); Calcium, Blood 8.2 mg/dL (8.5-10.1); Creatinine, Blood 0.9 mg/dL (0.40-1.00); Magnesium, Blood 1.9 mg/dL (1.6-2.4); Potassium, Blood 3.2 mmol/L (3.5-5.5)
[2023-01-18 03:22] LABS: BASOPHILS PERCENT AUTO 1 % (0-2); EOSINOPHILS ABSOLUTE AUTO 0.38 K/mm3 (0.00-0.68); EOSINOPHILS PERCENT AUTO 2 % (0-6); Hematocrit 38.1 % (33.0-51.0); Hemoglobin 12.2 g/dL (11.5-16.0); IMMATURE GRAN ABSOLUTE AUTO 0.37 K/mm3 (0.00-0.10); IMMATURE GRAN PERCENT AUTO 2 % (0-1); LYMPHOCYTES ABSOLUTE AUTO 2.25 K/mm3 (0.84-5.20); LYMPHOCYTES PERCENT AUTO 13 % (21-46); MONOCYTES ABSOLUTE AUTO 2.49 K/mm3 (0.16-1.47); MONOCYTES PERCENT AUTO 15 % (4-13); Mean Corpuscular HGB 27.3 pg (26.0-34.0); Mean Corpuscular Volume 85 fL (80-100); Mean Platelet Volume 12.3 fL (9.1-12.4); NEUTROPHILS ABSOLUTE AUTO 11.54 K/mm3 (1.96-9.15); NEUTROPHILS PERCENT AUTO 67 % (41-73); Platelet Count 460 K/mm3 (150-400); RDW Coefficient Variation 18.1 % (11.7-14.2); RDW Standard Deviation 55.6 fL (35.1-46.3); Red Blood Cell Count 4.47 M/mm3 (3.80-5.20); White Blood Cell Count 17.13 K/mm3 (4.00-11.30)
[2023-01-18 04:19] VITALS: BP 113/66
--- NOTE | 2023-01-18 05:59 | NUR ---
SHIFT SUMMARY PT IS A/Ox2-3 AND IS MOSTLY COOPERATIVE WITH CARE. CAN BE IMPULSIVE BY CLIMBING OUT OF BED WITHOUT STAFF ASSISTANCE AND CONFUSED AT TIMES. PT IS EASILY REDIRECTABLE HOWEVER. CARDIAC RIVERA, PT STARTED THE SHIFT IN AFIB WITH A RATE IN THE 120-140'S. AROUND 2014 YESTERDAY PM, PT CONVERTED TO SR 70-90'S. NO C/O CP OR PRESSURE T/O THE SHIFT. SBP HAS BEEN STABLE. RESPIRATORY RIVERA, MAINTAINS SPO2 >90% ON 4-7L VIA SIMPLE O2 MASK. OFTEN TAKES OFF MASK AND LEAVES IT LAYING ON THE BED. PT FREQUENTLY EDUCATED ON NEED TO KEEP MASK ON WELL POTENTIAL RISKS IF SHE CONTINUES TO TAKE OF THE MASK.INCREASED RR WELL C/O SOB WITH MINIMAL EXERTION, OFTEN DESATING TO MID 80'S. PT IS SLOW TO RECOVER WELL. COARSE/WHEEZY LS HEARD T/O. RESPONDS WELL TO PRN BREATHING TREATMENTS. INCONTINENT/CONTINENT OF URINE. ABLE TO STAND PIVOT TO BSC WITH 1-2 STAFF ASSIST. HEPARIN gtt IS BEING MANAGED BY PHARMACY AND HAS BEEN INFUSING ORDERED VIA EMAR. AWATING VENOUS DUPLEX RESULTS AT THIS TIME. NO FURTHER ORDERS, WILL REPORT TO ONCOMING RN. GAUTAM LAZARO OF THIS NOTE.
[2023-01-18 07:46] VITALS: BP 123/74
[2023-01-18 13:02] VITALS: BP 104/77
[2023-01-18 15:59] VITALS: BP 96/62
[2023-01-18 18:07] VITALS: BP 117/76
--- NOTE | 2023-01-18 18:53 | NUR ---
SHIFT SUMMARY FATIGUED AND SLEEPS FREQUENTLY. DISORIENTED ON WAKING, OCCASIONALLY FORGETFUL, IMPULSIVE. SPO2 ABOVE 90% ON 2L VIA NC. NSR 60-80 ON TELE, TACHY WITH EXERTION. LS COARSE AND WHEEZY THROUGHOUT, DIM RLL. ROUTINE NEBS. OTHER VSS. HEPARIN RUNNING AT 21 MG/KG/HR. NS AT 150, ROUTINE IV ABX. TOLERATING REG DIET AND LIQUIDS. VOIDING WELL. 1 ASSIST WITH FWW TO BSC. PULL UPS IN PLACE. MEDICATED FOR CHRONIC PAIN AND ANXIETY PER EMAR. ECHO DONE THIS SHIFT, EF 55-60%. PLAN IS TO DISCUSS IVC FILTER WITH PATIENT AND SPOUSE.
[2023-01-18 21:23] VITALS: BP 125/75
[2023-01-19] VITALS (64 sets, daily range): BP systolic 93–158; BP diastolic 60–104
[2023-01-19 01:16] LABS: BASOPHILS ABSOLUTE AUTO 0.07 K/mm3 (0.00-0.23); BASOPHILS PERCENT AUTO 0 % (0-2); EOSINOPHILS PERCENT AUTO 0 % (0-6); Hematocrit 39.1 % (33.0-51.0); Hemoglobin 12.2 g/dL (11.5-16.0); IMMATURE GRAN ABSOLUTE AUTO 0.25 K/mm3 (0.00-0.10); IMMATURE GRAN PERCENT AUTO 2 % (0-1); LYMPHOCYTES ABSOLUTE AUTO 1.42 K/mm3 (0.84-5.20); LYMPHOCYTES PERCENT AUTO 9 % (21-46); MONOCYTES ABSOLUTE AUTO 0.86 K/mm3 (0.16-1.47); MONOCYTES PERCENT AUTO 6 % (4-13); Mean Corpuscular HGB 26.9 pg (26.0-34.0); Mean Corpuscular HGB Conc 31.2 g/dL (31.5-36.5); Mean Corpuscular Volume 86 fL (80-100); Mean Platelet Volume 12.1 fL (9.1-12.4); NEUTROPHILS ABSOLUTE AUTO 13.09 K/mm3 (1.96-9.15); NEUTROPHILS PERCENT AUTO 83 % (41-73); NRBC ABSOLUTE 0.02 K/mm3 (0.00-0.02); NRBC Auto 0.1 /100 WBC (0.0-0.2); Platelet Count 474 K/mm3 (150-400); RDW Coefficient Variation 18.6 % (11.7-14.2); RDW Standard Deviation 57.4 fL (35.1-46.3); Red Blood Cell Count 4.53 M/mm3 (3.80-5.20); White Blood Cell Count 15.69 K/mm3 (4.00-11.30)
[2023-01-19 01:27] LABS: International Normalized Ratio 1.28; Prothrombin Time Results 13.3 Sec (9.7-11.5)
[2023-01-19 01:49] LABS: Bun/Creatinine Ratio 16.8 (12.0-20.0); Calcium, Blood 7.9 mg/dL (8.5-10.1); Creatinine, Blood 0.89 mg/dL (0.40-1.00); Potassium, Blood 4.5 mmol/L (3.5-5.5); Thyroid Stimulating Hormone 0.215 uIU/mL (0.360-4.800)
--- NOTE | 2023-01-19 04:57 | NUR ---
SHIFT SUMMARY PT A&Ox3-4, ANSWERS QUESTIONS APPROPRIATELY BUT IS TRYING TO LEAVE AND NOT FOLLOWING DIRECTION. D/T THIS, PT MOVED TO ROOM CLOSER TO NURSES STATION AND VIRTUAL COMPAINION INITIATED. BP STABLE, SINUS 70's, DENIES CP/PRESSURE. SpO2> 92% 3-5L VIA NC, DENIES SOB, HAS C/O COUGH. PT 1 ASSIST W/ FWW TO BSC, CONTINENT OF URINE AND BOWEL. NO OTHER EVENTS, WILL REPORT TO ONCOMING RN.
[2023-01-19 06:48] LABS: Base Excess Venous 1.4 mmol/L; Bicarbonate Venous 24.6 mmol/L (24.0-30.0); PCO2 Venous 49.3 mmHg (38-42); pH Blood Venous 7.35 (7.34-7.37)
[2023-01-19 07:36] LABS: Free Thyroxine 1.35 ng/dL (0.70-1.60)
[2023-01-19 07:37] LABS: Triiodothyronine, Free 1.36 pg/mL (2.18-3.98)
--- NOTE | 2023-01-19 08:42 | NUR ---
RAKAN ARRIVES VIA BED WITH R/T, RN X3, BIPAP ON. PT HOLDING HER MASK, CANNOT ANSWER QUESTIONS, SHE JUST MUMBLES UNINTELLIGIBLY. SITTING UP IN SEATED POSITION ON BED, TRANSFERED IN THAT POSITION. BIPAP 10/5, 75% SATS 98% BP ELEV AT 140/104, HR 88 RESPS 32
--- NOTE | 2023-01-19 08:46 | NUR ---
RIGHT LUNG COARSE AND CONGESTED T/O WITH WHEEZING NOTED.
--- NOTE | 2023-01-19 09:02 | NUR ---
PT TRANSFERRED TO ICU. PT HAD INCREASING SOB, ANXIETY AND DROPPING O2 SATS THIS MORNING. PLACED ON 15L NONREBREATHER FOR 02 SATS IN 70S AFTER AMBULATING TO RESTROOM. 02 SATS IMPROVED TO 90S. PT HAD INCREASING ANXIETY AND KEPT TAKING MASK OFF, STATING COULDN'T BREATHE. SATS WOULD DROP WHEN PT TOOK REBREATHER OFF. DR TO SEE PT, PT REC'D ATIVAN PER ORDERS FOR ANXIETY. CONTINUED TO C/O OF NOT BEING ABLE TO BREATHE, SATS DROPPED WHEN NONREBREATHER REMOVED. RT IN AND ADMINISTERED TX AND PLACED PT ON CPAP. PT TRANSFERRED TO ICU. REPORT CALLED.
--- NOTE | 2023-01-19 11:29 | NUR ---
PT CONTINUED TO TRY TO CLIMB OUT OF BED, BECOMING SHORT OF BREATH AND SATS TO THE 80'S ON 40%, WHICH HAD PUT HER DOWN TO EARLIER. CALL TO DR.B ORIN ANSWERED AND ORDERS RECEIVED. PT WAS TOLD THAT WE WOULD BE PLACING A NAGY CATHETER, SHE SAID GOOD!. PT VERY ANXIOUS AND UPSET, FIGHTING STAFF AND BIPAP. SHE IS GIVEN ATIVAN PER 'S ORDERS. SITTER HAS ARRIVED TO BE BY HER SIDE TO KEEP HER SAFE.
[2023-01-19 11:51] LABS: Source, Urine Foley catheter
[2023-01-19 11:51] LABS: PCO2 Arterial 58.1 mmHg (35-45); PO2 Arterial 85.1 mmHg (80-100); pH Blood Arterial 7.28 (7.35-7.45)
[2023-01-19 12:02] LABS: Appearance, Urine Clear (Clear); Bilirubin, Urine Neg (Neg); Blood, Urine Neg (Neg); Color, Urine Yellow (P-Yellow); Glucose Qualitative, Urine Neg (Neg); Ketones, Urine Neg (Neg); Leukocyte Esterase, Urine Neg (Neg); Nitrite, Urine Neg (Neg); Protein, Urine Neg (Neg); Urobilinogen, Urine NORM (Normal)
--- NOTE | 2023-01-19 15:11 | NUR ---
RAKAN HAS BEEN QUIETLY SLEEPING FOR THE LAST COUPLE OF HOURS. VITALS HAVE BEEN STABLE, ALTHOUGH SHE IS GOING IN AND OUT OF AFIB, RATE 110'S, WITH JUMPS TO THE 130'S ON OCC.
[2023-01-19 15:47] LABS: Base Excess Venous 2.7 mmol/L; Bicarbonate Venous 26.5 mmol/L (24.0-30.0); PCO2 Venous 42.1 mmHg (38-42); pH Blood Venous 7.42 (7.34-7.37)
--- NOTE | 2023-01-19 18:36 | NUR ---
RAKAN HAS CONTINUED TO REST THIS AFTERNOON ON THE BIPAP, SHE CONTINUES 10/5 FIO2 60% AND SATS >92%. HEART RATE REMAINS 110-120'S IN ATRIAL FIB. DIFFICULT TO UNDERSTAND WHEN SHE SPEAKS WITH MASK AND HER MUMBLING. SHE HAS REMAINED DISORIENTED FOR THE MAJORITY OF THE DAY. SHE HAS BEEN REDIRECTABLE ON OCC BUT MOSTLY VERY RESTLLESS AND AGITATED WITH STAFF. HERE EARLY ON IN THE DAY AND BROTHER WAS JUST HERE THIS EVENING. CALL FOR UPDATE TO , TO NOT GIVE ANY PO MEDS TONIGHT AND REEVALUATE IN THE MORNING. HEPARIN GTT CONTINUES AT THE SAME RATE (20.5U/KG).
[2023-01-20] VITALS (82 sets, daily range): BP systolic 104–163; BP diastolic 62–124
[2023-01-20 04:01] LABS: PCO2 Arterial 44.1 mmHg (35-45); PO2 Arterial 81.4 mmHg (80-100)
[2023-01-20 04:53] LABS: pH Blood Arterial 7.44 (7.35-7.45)
--- NOTE | 2023-01-20 06:07 | NUR ---
SHIFT SUMMARY: PT REMAINS ON BIPAP 04/27, FIOW 55%; PT HAS BEEN IN AND OUT OF TOLERATING BIPAP. AROUND 02O0 PT BECAME AGGITATED AND RESTLESS IN BED AND CONTINUOUSLY PULLING AT BIPAP MASK. PT MEDICATED WITH PRN ATIVAN AND PRECEDEX TITRATED DIRECTED BUT PT STILL VERY AGGITATED/RESTLESS. THIS RN HAD TO SIT AT BEDSIDE WITH PT TO OFFER VERBAL REDIRECTION AND 1:1 OBSERVATION TO KEEP BIPAP MASK ON. PT REMAINS AGGITATED/RESTLESS TILL AROUND 0530 AND HAS NOW SETTLED. SOFT MITTS PLACED ON PT TO HELP PREVENT PT FROM PULLING AT LINES AND CORDS. PT VSS THROUGHOUT THE NIGHT. PT TOLERATED ONE BREAK OFF BIPAP MASK WITH HFNC @ 15L AND TOLERATED ORAL CARE; ORAL CARE COMPLETED TWICE THIS SHIFT. PT CURRENTLY HAS PRECEDEX @ 1.4 AND HEPARIN @ 19 UNITS. POWERGLIDE PLACED THIS SHIFT IN [place]. PT HAS NOT BEEN ABLE TO PRODUCE A SPUTUM CULTURE BUT ONE STILL NEEDS TO BE COLLECTED AND SENT TO LAB. URINE OUTPUT AT 750 MLS THIS SHIFT. BED LOWERED, CALL LIGHT IN REACH, WILL CONTINUE TO MONITOR UNTIL ONCOMING RN ARRIVES.
[2023-01-20 06:22] LABS: Bun/Creatinine Ratio 16.6 (12.0-20.0); Calcium, Blood 7.9 mg/dL (8.5-10.1); Creatinine, Blood 0.72 mg/dL (0.40-1.00); Potassium, Blood 4.1 mmol/L (3.5-5.5)
[2023-01-20 06:26] LABS: Hematocrit 38.8 % (33.0-51.0); Hemoglobin 12.2 g/dL (11.5-16.0); Mean Corpuscular HGB Conc 31.4 g/dL (31.5-36.5); Mean Corpuscular Volume 86 fL (80-100); Mean Platelet Volume 12.6 fL (9.1-12.4); Platelet Count 549 K/mm3 (150-400); RDW Standard Deviation 58.4 fL (35.1-46.3); Red Blood Cell Count 4.52 M/mm3 (3.80-5.20)
[2023-01-20 06:27] LABS: White Blood Cell Count 24.21 K/mm3 (4.00-11.30)
[2023-01-20 09:10] LABS: BASOPHILS PERCENT MAN 0 % (0-2); EOSINOPHILS PERCENT MAN 0 % (0-6); LYMPHOCYTES ABSOLUTE MAN 2.42 K/mm3 (0.84-5.20); LYMPHOCYTES PERCENT MAN 10 % (21-46); MONOCYTES ABSOLUTE MAN 1.45 K/mm3 (0.16-1.47); MONOCYTES PERCENT MAN 6 % (4-13); NEUTROPHILS ABSOLUTE MAN 20.33 K/mm3 (1.96-9.15); SEG NEUTROPHILS PERCENT MAN 84 % (41-73); TOTAL CELLS COUNTED 100
--- NOTE | 2023-01-20 10:40 | NUR ---
ALYSA WAS HERE FOR VISIT, SHARED INFORMATION PERTAINING TO RAKAN AND HER CURRENT STATE OF HEALTH. HE DID TAKE HOME HER PURSE, PHONE, DIRECTOR OF MARKETING AND HER 3 RINGS FROM HER FINGERS.
--- NOTE | 2023-01-20 12:21 | NUR ---
PATIENT HAS INCOHERENT SPEECH AND HAS NO FAMILY MEMBERS OR VISITORS AT BEDSIDE AT THIS TIME. WILL CONTINUE TO ASSESS RISK PATIENT CONDITION CHANGES. WILL DEFER EDUCATION ON IGNITION SOURCES AND RISK OF INJURY WHILE OXYGEN IS IN USE WELL ASK IF THEY HAVE IGNITION SOURCES IN THEIR PERSONAL BELONGINGS WHEN FAMILY/VISITORS COME TO THE HOSPITAL/UNIT.
--- NOTE | 2023-01-20 12:31 | NUR ---
RAKAN IS MORE ALERT AND PER THE PLAN OF THE DOCTORS EFFORTS MADE TO SWITCH HER TO HIFLO OXYGEN AND TAKE IN SOME PO MEDS. PT IS ON AIRVO @ 60L/60% WITH SATS AT 91. SHE IS UNABLE TO SWALLOW WELL, SHE IS GIVEN ICE CHIPS AND SHE DROOLS OUT MOST OF THE LIQUID. WILL CONTINUE TO TRY TO KEEP HER MORE ALERT AND WORK ON SWALLOWING.
--- NOTE | 2023-01-20 13:39 | NUR ---
RAKAN BECAME MORE AND MORE AGITATED, MORE AGGRESSIVE WHILE WEARING THE AIRVO. SHE WAS AT 60L/60% AND ONLY ABLE TO SAT AT 90%. CALL MADE TO WITH UPDATE, ATIVAN GIVEN AND PRECEDEX TURNED BACK UP FROM 0.2. WILL CONTINUE TO TITRATE TOLERATED, KEEP HER NPO AND TRY TO MAINTAIN HER ON THE BIPAP. SHE WENT BACK INTO AFIB RATE 120-140 WHILE ON AIRVO AND AGITATED.
--- NOTE | 2023-01-20 14:03 | NUR ---
RAKAN CONTINUES TO HOLLER AND GET HERSELF WORKED UP, HER HR IS 130'S, RESP RATE IN THE 30'S. SATS 91%. UNABLE TO CALM HER WITH SOOTHING WORDS OR ENCOUR- AGEMENT. SITTER REMAINS AT BEDSIDE TO HELP KEEP BIPAP MASK IN PLACE.
--- NOTE | 2023-01-20 15:12 | NUR ---
RAKAN IS NOW RESTING QUIETLY. HER HEART RATE CONTINUES IN ATRIAL FIB 110-130S. SATS 92% HEPARIN GTT INCREASED TO 21U/KG PER PHARMACY ORDER, PRECEDEX @ 0.7MCG PER KG
--- NOTE | 2023-01-20 17:26 | NUR ---
RAKAN HAS BEEN ON THE BIPAP 04/27 55-60% FOR MOST OF THE DAY. SHE HAS BEEN DIF- FICULT TO CONVERSE WITH. HER ORIENTATION AND MENTATION HAS BEEN ALTERED. SHE HAS BEEN GIVEN ATIVAN, FENTANYL AND BEEN ON PRECEDEX (TITRATED) T/O THE SHIFT TO MAINTAIN HER OXYGENATION WITHOUT INCREASED WORK OF BREATHING AND MAINTAIN SATURATIONS >90%. SHE HAS HAD GREAT UO (3L) AND HAS CONTINUED ON THE HEPARIN GTT WITH THE INCREASED DOSE TO 21 U/KG/HR. NO OBVIOUS SIGNS OF BLEEDING NOTED. SHE HAS BEEN GIVEN ORAL CARE WITH THE [place]. SHE WAS ATTEMPTED OFF THE BIPAP FOR A PERIOD OF TIME TODAY, ON AIRVO. HER SATS MAINTAINED AROUND 90% BUT HER WORK OF BREATHING AND HER INABILITY TO REMAIN CALM AND REDIRECTABLE WERE LIMITING. IT TOOK SOME TIME TO GET HER TO CALM DOWN AND RETURN TO STABLE VS. HER HEART RATE INCREASED AND CONVERTED BACK TO ATRIAL FIB WHILE SHE WAS ON AIRVO AND AGITATED. SHE HAS REMAINED IN A-FIB FOR THE REMAINDER. THERE WAS DISCUSSION DURING ROUNDS ABOUT THE POSSIBILITY OF A DOBBHOFF FOR FEEDINGS AND THIS WAS DISCUSSED WITH THE , WHO SAID THAT WOULD BE OKAY.
--- NOTE | 2023-01-20 20:00 | NUR ---
ASSUMPTION OF CARE/ASSESSMENT: ASSUMED CARE OF PT AT 1900. PT IN BED AND SLEEPING AT THIS TIME. PT REMAINS ON BIPAP WITH SETTINGS 10/5 FIO2 60%; LUNG SOUNDS ARE COARSE WITH EXP. WHEEZES NOTED, SPO2 92<. PT AFIB ON MONITOR WITH HR 120-140'S, SBP 110'S, AND PPP X 4. PT NPO AT THIS TIME; HYPOACTIVE BOWEL SOUNDS IN ALL QUADRANTS, CBG STABLE AT THIS TIME. PT HAS PALE, COOL SKIN, AFEBRILE AND 1+ EDEMA IN BLE. PT WAKING UP AFTER THIS RN ASSESSED PT; PT NOT REDIRECTABLE AT THIS TIME AND NOT ABLE TO ANSWER ANY QUESTIONS. MEDS PER EMAR AT THIS TIME. PT HAS 1:1 SITTER OUTSIDE DOOR. HEPARIN GTT @ 21 UNITS/HR, PRECEDEX GTT @ 1.4 MCG/KG/HR. PT CONFUSED AND SEDATED AT THIS TIME, WILL CONTINUE TO ASSESS IGNITION RISK PT CONDITION CHANGES. BED LOWERED, CALL LIGHT IN REACH, WILL CONTINUE TO MONITOR.
[2023-01-21] VITALS (61 sets, daily range): BP systolic 114–157; BP diastolic 71–123
--- NOTE | 2023-01-21 06:55 | NUR ---
SHIFT SUMMARY: NO ACUTE CHANGES OVERNIGHT; VSS THROUGHOUT THE SHIFT. PT ON BIPAP THROUGHOUT THE NIGHT WITH SETTINGS 10/5 FIO2 70%. PT HAD A FEW EPISODES OF RESTLESSNESS AND AGGITATED WHERE SHE WAS ATTEMPTING TO PULL OFF MASK BUT MEDICATED WITH ATIVAN PER EMAR AND SETTLED BACK DOWN. PT SLEPT FOR MAJORITY OF THE NIGHT. TOLERATED ORAL CARE 3X THIS SHIFT. PT HAD SCANT BOWEL MOVEMENT THIS SHIFT AND DEPENDS AND COLBY PAD REPLACED. BED LOWERED, CALL LIGHT IN REACH, WILL CONTINUE TO MONITOR UNTIL ONCOMING RN ARRIVES.
--- NOTE | 2023-01-21 07:00 | NUR ---
ASSUMED CARE PATIENT LYING IN BED WITH EYES CLOSED ON BIPAP /8 70% FIO2. DOES NOT OPEN EYES OR RESPOND TO STAFF, BUT CONTINUOUSLY MOANING. PATIENT IS RESTLESS IN BED, ATTEMPTING TO REMOVE MASK. STAFF AT BEDSIDE ASSISTING PATIENT TO KEEP MASK ON. GEL PADDING PLACED UNDERNEATH MASK ON NOSE FOR COMFORT. MONITOR SHOWS HR IN 130'S-150'S. TACHYPNEIC WITH RATE INHIGH 30'S-40'S. ATIVAN 2MG IV GIVEN PER EMAR FOR AGITATION WITH NO RELIEF. FENTANYL 50MCG IV GIVEN PER EMAR FOR PAIN. VIPIN MADE TO HOSPITALIST RESIDENT TO OBTAIN CXR ORDER. NO ANSWER AT THIS TIME.
[2023-01-21 10:36] LABS: Hematocrit 39.4 % (33.0-51.0); Hemoglobin 12.8 g/dL (11.5-16.0); Mean Platelet Volume 12.2 fL (9.1-12.4); Platelet Count 552 K/mm3 (150-400)
--- NOTE | 2023-01-21 11:04 | NUR ---
EDUCATION PATIENT NONVERBAL R/T AMS. UNABLE TO EDUCATE APPROPRIATELY. WILL CONTINUE TO ASSESS RISK PATIENT CONDITION CHANGES. NO VISITORS AT BEDSIDE TO EDUCATE AT THIS TIME.
[2023-01-21 20:03] LABS: PCO2 Venous 43.7 mmHg (38-42); pH Blood Venous 7.49 (7.34-7.37)
[2023-01-21 20:04] LABS: Base Excess Venous 10.2 mmol/L; Bicarbonate Venous 32.6 mmol/L (24.0-30.0)
[2023-01-22] VITALS (64 sets, daily range): BP systolic 84–174; BP diastolic 57–105
[2023-01-22 04:12] LABS: Hematocrit 38.8 % (33.0-51.0); Hemoglobin 12.9 g/dL (11.5-16.0); Mean Corpuscular HGB 27.2 pg (26.0-34.0); Mean Corpuscular HGB Conc 33.2 g/dL (31.5-36.5); Mean Corpuscular Volume 82 fL (80-100); Mean Platelet Volume 12.3 fL (9.1-12.4); Platelet Count 536 K/mm3 (150-400); RDW Coefficient Variation 18.3 % (11.7-14.2); RDW Standard Deviation 53.3 fL (35.1-46.3); Red Blood Cell Count 4.75 M/mm3 (3.80-5.20)
[2023-01-22 04:16] LABS: White Blood Cell Count 16.69 K/mm3 (4.00-11.30)
[2023-01-22 04:18] LABS: Anti-Xa UFH, PHA Monitoring 0.68 IU/mL
[2023-01-22 04:30] LABS: BAND PERCENT MAN 3 % (0-8); BASOPHILS PERCENT MAN 0 % (0-2); EOSINOPHILS PERCENT MAN 0 % (0-6); LYMPHOCYTES ABSOLUTE MAN 0.83 K/mm3 (0.84-5.20); LYMPHOCYTES PERCENT MAN 5 % (21-46); MONOCYTES ABSOLUTE MAN 0.66 K/mm3 (0.16-1.47); MONOCYTES PERCENT MAN 4 % (4-13); MYELOCYTE ABSOLUTE MAN 0.16 K/mm3 (0.00-0.00); MYELOCYTE PERCENT MAN 1 % (0-0); NEUTROPHILS ABSOLUTE MAN 15.02 K/mm3 (1.96-9.15); SEG NEUTROPHILS PERCENT MAN 87 % (41-73); TOTAL CELLS COUNTED 100
[2023-01-22 04:35] LABS: Alanine Aminotransfer (ALT/SGP 16 U/L (12-78); Albumin/Globulin Ratio 0.5 (0.8-1.8); Alk Phos 82 U/L (50-136); Anion Gap 7 mmol/L (6-16); Aspartate Aminotrans (AST/SGOT 26 U/L (12-37); Bilirubin, Total 0.5 mg/dL (0.1-1.0); Blood Urea Nitrogen 14 mg/dL (8-24); CO2, Blood 31 mmol/L (21-32); Calcium, Blood 8.1 mg/dL (8.5-10.1); Chloride, Blood 101 mmol/L (98-108); Creatinine, Blood 0.74 mg/dL (0.40-1.00); Digoxin (Lanoxin) 1.94 ug/mL (0.80-2.00); Globulin, Blood 4.2 g/dL (2.2-4.0); Glomerular Filtration Rate 88 (60-); Glucose, Blood 185 mg/dL (70-99); Potassium, Blood 3.5 mmol/L (3.5-5.5); Sodium, Blood 139 mmol/L (136-145); Total Protein, Blood 6.2 g/dL (6.4-8.2)
--- NOTE | 2023-01-22 06:16 | NUR ---
PATIENT OPENS EYES SPONTANEOUSLY BUT DOES NOT FOLLOW COMMANDS OR NOD APPROPRIATELY TO QUESTIONS. MOVES ALL EXTREMITIES, LEFT SIDE WEAKER THAN RIGHT. UNABLE TO WEAN DOWN PRECEDEX OVERNIGHT D/T PATIENT AGITATION. PRN FENTANYL GIVEN FOR PAIN X2. SITTER AT BEDSIDE. AFIB WITH RATE 70-100. REMAINS ON BIPAP 06/30 55%. NPO, NO BOWEL MOVEMENT. NAGY IN PLACE. PRECEDEX, HEPARIN, AND AMIO GTT INFUSING. PATIENT CONFUSED AND UNABLE TO PROVIDE EDUCATION ABOUT IGNITION SOURCES.
--- NOTE | 2023-01-22 10:23 | NUR ---
DOBHOFF DOBHOFF PLACED IN RT NOSTRIL. XR REVIEWED BY DR. DING AND APPROVED FOR STYLET REMOVAL AND USE. SECURED USING TEGADERM.
--- NOTE | 2023-01-22 11:28 | NUR ---
TUBE FEED PIVOT 1.5 STARTED AT INITIAL RATE OF 25ML/HR WITH GR 45 ML/HR VIA DOBHOFF.
--- NOTE | 2023-01-22 17:48 | NUR ---
SHIFT SUMMARY PATIENT BECOME MORE ORIENTED T/O SHIFT. KNOWS PLACE, SELF, FOLLOWS DIRECTIONS, AND ANSWERS QUESTIONS APPROPRIATELY. TOLERATED AIRVO T/O SHIFT ON 60L/MIN 70-80% FIO2. PRECEDEX @ 1.2 MCG/KG/HR, AMIO @ 0.5MG/HR, HEPARIN @ 24 UNITS/KG/HR, AND TF @ 25ML/HR WITH GR 45ML/HR. HR MAINTAINED BELOW 100 T/O SHIFT WITH AMIO. DOBHOFF PLACED. SPUTUM CX AND UA SENT TO LAB FOR PENDING CULTURES AND TESTING. NEW 20G IV PLACED IN RT WRIST. PATIENT WAS ABLE TO PERFORM OWN ORAL CARE WITH MINIMAL ASSISTANCE. NAGY PATENT AND DRAINED 525ML URINE TO GRAVITY. NO BM TODAY.
[2023-01-22 18:54] LABS: Acinetobacter baumannii DNA Not Detected copy/mL (NOT DETECT); CTX-M Resistance Gene Not Detected; Chlamydia pneumonia Not Detected (NOT DETECT); Enterobacter cloacae DNA Not Detected copy/mL (NOT DETECT); Escherichia coli DNA Detected Bin 10^5 copy/mL (NOT DETECT); Haemophilus influenzae DNA Not Detected copy/mL (NOT DETECT); KPC Resistance Gene Not Detected; Klebsiella aerogenes DNA Not Detected copy/mL (NOT DETECT); Klebsiella oxytoca DNA Not Detected copy/mL (NOT DETECT); Klebsiella pneumoniae DNA Not Detected copy/mL (NOT DETECT); Moraxella catarrhalis DNA Not Detected copy/mL (NOT DETECT); NDM Resistance Gene Not Detected; OXA-48-like Resistance Gene Not Detected; Proteus sp DNA Not Detected copy/mL (NOT DETECT); Pseudomonas aeruginosa DNA Not Detected copy/mL (NOT DETECT); Serratia marcescens DNA Not Detected copy/mL (NOT DETECT); Staphylococcus aureus DNA Not Detected copy/mL (NOT DETECT); Streptococcus agalactiae DNA Not Detected copy/mL (NOT DETECT); Streptococcus pneumoniae DNA Not Detected copy/mL (NOT DETECT); Streptococcus pyogenes DNA Not Detected copy/mL (NOT DETECT); VIM Resistance Gene Not Detected; mecA/C and MREJ Resist Gene Not Detected
[2023-01-22 18:55] LABS: Adenovirus DNA Not Detected (NOT DETECT); Human Coronavirus RNA Not Detected (NOT DETECT); Human Metapneumovirus RNA Not Detected (NOT DETECT); Influenza virus A RNA Not Detected (NOT DETECT); Influenza virus B RNA Not Detected (NOT DETECT); Legionella pneumophila Not Detected (NOT DETECT); Mycoplasma pneumoniae Not Detected (NOT DETECT); Parainfluenza virus RNA Not Detected (NOT DETECT); Respiratory syncytial Vir RNA Not Detected (NOT DETECT); Rhinovirus+Enterovirus RNA Not Detected (NOT DETECT)
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
[2023-01-23] VITALS (85 sets, daily range): BP systolic 86–175; BP diastolic 62–121
[2023-01-23 04:02] LABS: Hematocrit 38.6 % (33.0-51.0); Hemoglobin 12.9 g/dL (11.5-16.0); Mean Corpuscular HGB Conc 33.4 g/dL (31.5-36.5); Mean Corpuscular Volume 81 fL (80-100); Mean Platelet Volume 12.3 fL (9.1-12.4); Platelet Count 556 K/mm3 (150-400); RDW Coefficient Variation 17.9 % (11.7-14.2); RDW Standard Deviation 51.5 fL (35.1-46.3); Red Blood Cell Count 4.78 M/mm3 (3.80-5.20)
[2023-01-23 04:04] LABS: NRBC ABSOLUTE 0.02 K/mm3 (0.00-0.02); NRBC Auto 0.1 /100 WBC (0.0-0.2); White Blood Cell Count 18.59 K/mm3 (4.00-11.30)
[2023-01-23 04:21] LABS: BAND PERCENT MAN 2 % (0-8); BASOPHILS PERCENT MAN 0 % (0-2); EOSINOPHILS PERCENT MAN 0 % (0-6); LYMPHOCYTES PERCENT MAN 7 % (21-46); MONOCYTES ABSOLUTE MAN 1.48 K/mm3 (0.16-1.47); MONOCYTES PERCENT MAN 8 % (4-13); SEG NEUTROPHILS PERCENT MAN 83 % (41-73); TOTAL CELLS COUNTED 100
[2023-01-23 04:22] LABS: Alanine Aminotransfer (ALT/SGP 38 U/L (12-78); Albumin/Globulin Ratio 0.5 (0.8-1.8); Alk Phos 81 U/L (50-136); Anion Gap 5 mmol/L (6-16); Aspartate Aminotrans (AST/SGOT 58 U/L (12-37); Bilirubin, Total 0.5 mg/dL (0.1-1.0); Blood Urea Nitrogen 27 mg/dL (8-24); Bun/Creatinine Ratio 41.6 (12.0-20.0); CO2, Blood 31 mmol/L (21-32); Calcium, Blood 8.4 mg/dL (8.5-10.1); Chloride, Blood 103 mmol/L (98-108); Creatinine, Blood 0.65 mg/dL (0.40-1.00); Digoxin (Lanoxin) 1.08 ug/mL (0.80-2.00); Globulin, Blood 3.9 g/dL (2.2-4.0); Glomerular Filtration Rate 96 (60-); Glucose, Blood 180 mg/dL (70-99); Potassium, Blood 3.2 mmol/L (3.5-5.5); Sodium, Blood 139 mmol/L (136-145); Total Protein, Blood 5.9 g/dL (6.4-8.2)
--- NOTE | 2023-01-23 06:21 | NUR ---
SHIFT SUMMARY RAKAN APPEARED TO CLEAR MORE OVERNIGHT. SPEECH WAS LESS SLURRED AND WAS ABLE TO MAKE NEEDS KNOW. STILL A&O TO SELF AND PLACE. PRECEDEX DOWN TO 0.8MCG/KG/HR. PRN NARCOTICS AND BENZOS GIVEN FOR CHRONIC PAIN AND ANXIETY. TF AT GOAL RATE OF 45ML/HR. ONE BM OVERNIGHT. GOOD URINE OUTPUT. NO CHANGES TO AIRVO 60LPM 75% FIO2. SINUS RYTHYM WITH PACS, RATE IN 80S. BP STABLE. NO ACUTE EVENTS OVERNIGHT.
--- NOTE | 2023-01-23 06:36 | NUR ---
FIRE SAFETY NOTE PT EDUCATED ON RISK OF IGNITION SOURCES AND RISK OF INJURY WHILE OXYGEN IS IN USE. PT DENIES SMOKING AND VERBALIZED UNDERSTANDING. NO FAMILY AT BEDSIDE
--- NOTE | 2023-01-23 07:28 | NUR ---
ASSUMED CARE PATIENT LYING IN BED WITH EYES CLOSED. MOANS WHEN STIMULATED. AIRVO IN PLACE 60L/MIN AND 75% FIO2 WITH SPO2 MID 90'S. WEAK, WET COUGH. DOBHOFF IN PLACE WITH PIVOT 1.5 INF @ GR 45ML/HR. PRECEDEX INF @ 0.8MCG/KG/HR AND KCL REPLACEMENT. NAGY PATENT AND DRAINING TO GRAVITY. BEDSIDE REPORT COMPLETED WITH JASSON SHELLEY.
--- NOTE | 2023-01-23 18:43 | NUR ---
SHIFT SUMMARY PATIENT REMAINS ON AIRVO 60L/MIN 75% FIO2 WITH SPO2 IN LOW 90'S. ST WAS UNABLE TO EVALUATE SWALLOW TODAY DUE TO HIGH FLOW OF OXYGEN. PRECEDEX TITRATED DOWN TO 0.3 MCG/KG/HR. ATIVAN PT GIVEN TODAY X 2. PATIENT C/O HEADACHE 04/02 AND MEDICATED PER EMAR WITH OXYCODONE. PATIENT WAS ABLE TO SIT UP IN BED, CONVERSE WITH STAFF AND . PATIENT HAD MULTIPLE LOOSE BM THIS SHIFT. TF REMAINS AT GR 45 ML/HR.
--- NOTE | 2023-01-23 20:00 | NUR ---
ASSUMPTION OF CARE PT WATCHING TV WITH SITTER AT BEGINNING OF SHIFT. A&OX4 BUT AT TIMES IS STILL VERY CONFUSED ABOUT WHO IS IN THE ROOM WITH HER. AERVO AT 60LPM 75% FIO2. FINE CRACKLES IN BASES. HR IN 60S NORMAL SINUS WITH PACS. TF AT GOAL RATE OF 45MLS/HR. PRECEDEX TURNED TO STANDBY. MEDICATED WITH PRNS FOR AGITATION.
[2023-01-24] VITALS (38 sets, daily range): BP systolic 101–187; BP diastolic 49–122
[2023-01-24 03:41] LABS: BASOPHILS ABSOLUTE AUTO 0.09 K/mm3 (0.00-0.23); BASOPHILS PERCENT AUTO 0 % (0-2); EOSINOPHILS PERCENT AUTO 0 % (0-6); Hematocrit 36.8 % (33.0-51.0); IMMATURE GRAN PERCENT AUTO 2 % (0-1); LYMPHOCYTES ABSOLUTE AUTO 0.75 K/mm3 (0.84-5.20); LYMPHOCYTES PERCENT AUTO 3 % (21-46); MONOCYTES ABSOLUTE AUTO 1.56 K/mm3 (0.16-1.47); MONOCYTES PERCENT AUTO 7 % (4-13); Mean Corpuscular HGB 26.7 pg (26.0-34.0); Mean Corpuscular HGB Conc 32.6 g/dL (31.5-36.5); Mean Corpuscular Volume 82 fL (80-100); Mean Platelet Volume 12.5 fL (9.1-12.4); NEUTROPHILS ABSOLUTE AUTO 19.23 K/mm3 (1.96-9.15); NEUTROPHILS PERCENT AUTO 87 % (41-73); Platelet Count 550 K/mm3 (150-400); RDW Coefficient Variation 18.5 % (11.7-14.2); RDW Standard Deviation 53.4 fL (35.1-46.3); White Blood Cell Count 22.03 K/mm3 (4.00-11.30)
[2023-01-24 03:48] LABS: Bun/Creatinine Ratio 54.3 (12.0-20.0); Calcium, Blood 8.7 mg/dL (8.5-10.1); Creatinine, Blood 0.64 mg/dL (0.40-1.00); Magnesium, Blood 2.1 mg/dL (1.6-2.4); Phosphorus, Blood 2.2 mg/dL (2.5-4.9); Potassium, Blood 3.6 mmol/L (3.5-5.5)
--- NOTE | 2023-01-24 05:30 | NUR ---
SHIFT SUMMARY PRECEDEX TURNED OFF AT BEGINNING OF SHIFT. RAKAN ALERT AND ORIENTED X4, HOWEVER AT TIMES THINKS THAT FAMILY IS IN THE ROOM AND MENTIONED SEEING SOME CATS AND DOGS IN HER ROOM. NO ACUTE EVENTS OVERNIGHT, BUT RAKAN DID NOT SLEEP AT ALL. CONSTANTLY ASKING FOR HELP TO GET OUT OF BED. SEROQUEL, MELATONIN, AND ATARAX GIVEN AT BEDTIME. 2MG OF IV ATIVAN GIVEN X2 OVERNIGHT ALONG WITH IV OLANZAPINE. NO SUCCESS. 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 ALTHOUGH SHE DOES CALL OUT SHE IS VERY REDIRECTABLE. IS NOT CONSTANTLY PULLING AT LINES, BUT SOMETIMES DOES FORGET WHY THE LINES ARE THERE. NSR WITH PACS RATE IN 80S FOR MAJORITY OF SHIFT. LUNGS DIMINISH AND CRACKLY IN BASES. REMAINS ON AEROVO AT 60LPM 75%FIO2. SOMETIMES CANNULA SHIFT OUT OF NOSE AND SATS WILL PROMPTLY DROP INTO MID 80S. 2 SMALL BMS OVERNIGHT. ADEQUATE OUTPUT FROM NAGY. TF RUNNING AT GOAL OF 45ML/HR
--- NOTE | 2023-01-24 07:24 | NUR ---
IGNITION RISK EDUCATION PT EDUCATED ON RISK REGARDING IGNITION SOURCES AND RISK OF INJURY WHILE OXYGEN IS IN USE. PT IS CURRENTLY ON 1:1 OBSERVATION FOR CONFUSION. WILL CONTINUE TO ASSESS AND EDUCATE NEEDED.
[2023-01-24 10:50] LABS: Source, Urine Foley catheter
[2023-01-24 10:57] LABS: Appearance, Urine Clear (Clear); Bilirubin, Urine Neg (Neg); Blood, Urine Neg (Neg); Color, Urine Yellow (P-Yellow); Glucose Qualitative, Urine 1+ (Neg); Ketones, Urine Neg (Neg); Leukocyte Esterase, Urine Neg (Neg); Nitrite, Urine Neg (Neg); Protein, Urine 2+ (Neg); Urobilinogen, Urine NORM (Normal)
[2023-01-24 11:04] LABS: Amorphous Light (0-Heavy); Bacteria Rare /hpf; Mucus Light (0-Heavy); Red Blood Cells, Urine 0-2 /hpf (0-2); Squamous Epithelial Cells Not Seen /hpf (Few); Transitional Epithelial Cells Few /hpf (0-Rare); White Blood Cells, Urine 0-2 /hpf (0-5)
--- NOTE | 2023-01-24 12:11 | NUR ---
REASSESSMENT PT HAS BEEN ALERT AND ORIENTED THIS MORNING, BUT HALLUCINATING ALMOST CONSTANTLY. SHE KEEPS SEEING AND TALKING TO PEOPLE AND ANIMALS IN THE ROOM THAT AREN'T PRESENT. SHE KNOWS WHERE SHE IS, WHAT THE YEAR IS AND CAN TALK COHERENTLY, BUT THEN SWITCHES MID CONVERSATION TO SOMETHING COMPLETELY OFF TOPIC. HER LUNGS HAVE FAINT INSPIRATORY WHEEZES. FIO2 TITRATED DOWN TO 65%. SHE DOES DESAT WITH ACTIVITY. COUGHING UP SMALL AMT OF SPUTUM. SR, BP STABLE. DOBHOFF GIVING TF, AT GOAL. SPEECH CAME BY BUT CAN'T WORK WITH PT UNTIL FIO2 IS ALSO BELOW 50%. PT NEEDED TO HAVE A BM SO GOT HER UP TO C USING LIFT. TRIALLED PT STANDING AND SHE WAS ABLE TO GET TO THE EOB AND STAND, BUT WASN'T ABLE TO MARCH IN PLACE. PT WAS GETTING TIRED AT THAT POINT TOO, SO THAT'S WHEN THE LIFT WAS USED. AFTER COMMODE, LIFT USED TO GET PT INTO A RECLINER, WHERE SHE IS CURRENTLY. PT'S CAME BY AND WAS UPDATED BY NURSING STAFF AND DR. DING.
--- NOTE | 2023-01-24 16:56 | NUR ---
SHIFT SUMMARY PT HAS CONTINUED TO HALLUCINATE THROUGHOUT THE DAY. SHE SAYS SHE IS TIRED AND WANTS TO SLEEP, BUT HAS NOT SLEPT AT ALL TODAY. SHE HAS HAD A HEADACHE THAT SHE RECEIVED TYLENOL AND THEN OXYCODONE FOR. LUNGS HAVE A FEW CRACKLES IN THE BASES THIS EVENING. OXYGEN HASN'T BEEN TITRATED DOWN ANYMORE SINCE THIS MORNING SPO2 IS 91%. SR WITH PAC, BP STABLE. PT WORKED WITH PT AND OT THIS AFTERNOON. TOLERATING TUBE FEED. CONTINUING TO MONITOR.
--- NOTE | 2023-01-24 20:50 | NUR ---
ASSUMED CARE PT IS ALERT AND ORIENTED X3-4; PT FOLLOWS COMMANDS AND ANSWERS ORIENTATION QUESTIONS APPROPRIATELY/CORRECTLY, BUT IS CONFUSED/HALLUCINATING. PT STATES THAT SHE SEE'S BUGS INT HE CORNER OF THE ROOM AND HEARS WATER RUSHING OUTSIDE HER WINDOW. PT WILL ALSO SEE FAMILY MEMBERS WHO ARE NOT PRESENT AND CONVERSATE WITH THEM. SPO2 >92% ON AIRVO W/ 50L/75%; MAP >65 W/ SYSTOLICS IN THE 150-180'S (PT FREQUENTLY TENSING OR MOVING ARM EVEN WHEN ASKED NOT TO.). PERRLA. PT IS CONSTANTLY SAYING NON-SENSICAL THINGS, BUT OTHERWISE DOES NOT APPEAR TO BE IN DISTRESS. D/T PT'S ALTERED MENTAL STATUS SMOKING/COMBUSTIBLE +OXYGEN EDUCATION NOT GIVEN. WILL CONTINUE TO MONITOR PT FOR ANY PARAPHERNILIA.
[2023-01-25] VITALS (36 sets, daily range): BP systolic 113–184; BP diastolic 66–118
--- NOTE | 2023-01-25 01:14 | NUR ---
UPDATE PT UNABLE TO MAINTAIN SPO2 >88%; BIPAP AT 12/8 W/ FIO2 75%.
[2023-01-25 03:32] LABS: Hematocrit 36.3 % (33.0-51.0); Hemoglobin 12.2 g/dL (11.5-16.0); Mean Corpuscular HGB 27.1 pg (26.0-34.0); Mean Corpuscular HGB Conc 33.6 g/dL (31.5-36.5); Mean Corpuscular Volume 81 fL (80-100); Mean Platelet Volume 12.2 fL (9.1-12.4); Platelet Count 586 K/mm3 (150-400); RDW Coefficient Variation 18.6 % (11.7-14.2); RDW Standard Deviation 52.5 fL (35.1-46.3); Red Blood Cell Count 4.51 M/mm3 (3.80-5.20)
[2023-01-25 03:33] LABS: NRBC ABSOLUTE 0.03 K/mm3 (0.00-0.02); NRBC Auto 0.1 /100 WBC (0.0-0.2); White Blood Cell Count 27.35 K/mm3 (4.00-11.30)
[2023-01-25 03:39] LABS: Bun/Creatinine Ratio 54.5 (12.0-20.0); Calcium, Blood 8.9 mg/dL (8.5-10.1); Creatinine, Blood 0.61 mg/dL (0.40-1.00); Potassium, Blood 3.8 mmol/L (3.5-5.5)
[2023-01-25 03:49] LABS: BASOPHILS PERCENT MAN 0 % (0-2); EOSINOPHILS PERCENT MAN 0 % (0-6); LYMPHOCYTES ABSOLUTE MAN 0.82 K/mm3 (0.84-5.20); LYMPHOCYTES PERCENT MAN 3 % (21-46); MONOCYTES ABSOLUTE MAN 2.46 K/mm3 (0.16-1.47); MONOCYTES PERCENT MAN 9 % (4-13); MYELOCYTE ABSOLUTE MAN 0.27 K/mm3 (0.00-0.00); MYELOCYTE PERCENT MAN 1 % (0-0); NEUTROPHILS ABSOLUTE MAN 23.79 K/mm3 (1.96-9.15); SEG NEUTROPHILS PERCENT MAN 87 % (41-73); TOTAL CELLS COUNTED 100
--- NOTE | 2023-01-25 05:04 | NUR ---
SHIFT SUMMARY SPO2 >92% ON AIRVO; MAP >65 W/ SYSTOLIC IN THE 140'S; PERRLA. PT HAS PRECEDEX INFUSING PER ORDER (SEE FLOWSHEET). PT HAS BEEN AGITATED T/O NIGHT (PULLING AT CORDS, BIPAP, ASKING TO WALK AROUND, AND HALLUCINATING) UNTIL ABOUT AN HOUR AGO; SHE IS NOW RESTING QUIETLY. NAGY CATHETER PATENT AND DRAINING TO GRAVITY.
--- NOTE | 2023-01-25 07:26 | NUR ---
Assumed care at approximately 0700. Bedside report received from nightshift RN. Pt resting in bed, on AIRVO 50 L/MIN, 75% Fi02. Precedex infusing at 0.4 mcg/kg/hr. Dobhoff in place, TF at goal rate. Su catheter in place, draining to gravity. VS stable, no acute needs at time of report. No ignition sources noted in room, education deferred until pt is alert and oriented.
--- NOTE | 2023-01-25 14:03 | NUR ---
Spiritual Care Visit. Pt. is awake in bed and welcomes my visit. Pt. is pleasant. Pt. displays evidence of being very engaged, and very aware. Pt. is able to verbalize the details of her zaria and shares of a supportive local extended family. Matters of zaria and beleif are considered, and pt. displays evidence of gratitude for the spiritual care visit. Prayed with Pt. Pt. also verbalized gratitude for the pastoral prayer, and welcomed this stonemason helper to return.
--- NOTE | 2023-01-25 14:42 | NUR ---
Spoke with Pt's Primary RN Steven and discussed case. Pt doing slightly better today and currently off Precedex. Pt still requiring AIRVO. Pt's confusion is starting to improve. Brief supportive visit this afternoon. Pt resting in bed and appears mildly anxious. Pt reports pain in her shoulder and head. Tech at bedside reports Pt recently receiving pain medication. Pt expresses wanting to eat and is currently NPO due to respiratory status. ST to evaluate. Continued supportive visit and offered therapeutic listening. Plan: Therapeutic visits as needed and if appropriate advanced care planning with Pt and spouse when Pt's confusion has cleared. Palliative Care will remain available.
--- NOTE | 2023-01-25 18:42 | NUR ---
Shift summary. Pt rested in bed throughout shift. On airvo 50 L/MIN, 75% Fi02 until this afternoon. 02 delivery switched to non-rebreather at 15 L/min to alleviate pain/bleeding from nostrils. Precedex titrated off at 0830 am, pt slowly became oriented and alert today, A&O x4 this afternoon w/some anxiety. At approximately 1715 pt rhythm changed to afib w/rvr, pt became very tachypnic and rate ivis into the 170s. Dr. Valentino notified, orders obtained for cardizem push and infusion, see emar. Pt became tachypneic, sats decreased into 80s. Unable to redirect patient, prn ativan given with good results. Brother currently at bedside, sitter at bedside. Pt apppears to be resting more comfortably, hr slowly decreasing, sats above 90%. See assessment/chart for further details. Will continue to monitor and report off to nightshift RN.
--- NOTE | 2023-01-25 21:21 | NUR ---
ASSUMED CARE PT IS A&O X3-4, BUT STILL AGITATED/UNCOOPERATIVE W/ CARE. PT IS PULLING AT LINES, ANXIOUS, AND INTERMITTENTLY CONFUSED. PRECEDEX INITIATED AT 0.2 MCG/KG/HR AND IS RESTING QUIETLY W/ OCCASIONAL NEED FOR RE-DIRECTION/ORIENTATION. CARDIZEM INFUSING AT 20MG/HR (ORDER PARAMETERS ALLOW FOR 20MG/HR MAX) W/ HR VARIABLE 120~'S. BROTHER AT BEDSIDE AT START OF SHIFT.
[2023-01-26] VITALS (36 sets, daily range): BP systolic 101–187; BP diastolic 57–135
--- NOTE | 2023-01-26 00:41 | NUR ---
UPDATE PT IS RESTING QUIETLY/SLEEPING. MUCH MORE COOPERATIVE W/ CARE. PT APPEARS MORE ORIENTED THAN AT THE START OF SHIFT.
[2023-01-26 03:36] LABS: Hematocrit 36.8 % (33.0-51.0); Hemoglobin 11.8 g/dL (11.5-16.0); Mean Corpuscular HGB 26.7 pg (26.0-34.0); Mean Corpuscular HGB Conc 32.1 g/dL (31.5-36.5); Mean Corpuscular Volume 83 fL (80-100); Mean Platelet Volume 12.7 fL (9.1-12.4); Platelet Count 567 K/mm3 (150-400); RDW Coefficient Variation 18.9 % (11.7-14.2); Red Blood Cell Count 4.42 M/mm3 (3.80-5.20)
--- NOTE | 2023-01-26 04:09 | NUR ---
UPDATE D/T PT'S AMS SMOKING EDUCATION WAS NOT GIVEN AT START OF SHIFT. PT APPEARS MORE ALERT AND WAS EDUCATED ABOUT OXYGEN/COMBUSTION DANGERS. PT DENIES HAVING SMOKING PARAPHERNILIA.
[2023-01-26 05:24] LABS: EOSINOPHILS PERCENT AUTO 0 % (0-6); IMMATURE GRAN PERCENT AUTO 3 % (0-1); LYMPHOCYTES PERCENT AUTO 3 % (21-46); MONOCYTES PERCENT AUTO 8 % (4-13); NEUTROPHILS PERCENT AUTO 85 % (41-73); White Blood Cell Count 27.87 K/mm3 (4.00-11.30)
--- NOTE | 2023-01-26 05:54 | NUR ---
SHIFT SUMMARY PT IS SLEEPING INTERMITTENTLY T/O NIGHT. WHEN PT WAS LAST AWAKE, PT APPEARED MORE ORIENTED AND WAS ABLE TO ARTICULATE W/O SLURRING. SPO2 >92% ON AIRVO; MAP >65; HR VARIABLE 60-80'S. CARDIZEM AND PRECEDEX INFUSING/TITRATING PER ORDER. PURE WICK IN PLACE. NO ACUTE EVENTS OVER NIGHT.
[2023-01-26 06:13] LABS: BASOPHILS ABSOLUTE AUTO 0.15 K/mm3 (0.00-0.23); BASOPHILS PERCENT AUTO 1 % (0-2); IMMATURE GRAN ABSOLUTE AUTO 0.91 K/mm3 (0.00-0.10); LYMPHOCYTES ABSOLUTE AUTO 0.85 K/mm3 (0.84-5.20); MONOCYTES ABSOLUTE AUTO 2.15 K/mm3 (0.16-1.47)
[2023-01-26 06:21] LABS: Albumin, Blood 2.2 g/dL (3.4-5.0); Albumin/Globulin Ratio 0.6 (0.8-1.8); Bilirubin, Total 0.5 mg/dL (0.1-1.0); Bun/Creatinine Ratio 49.8 (12.0-20.0); Calcium, Blood 8.9 mg/dL (8.5-10.1); Creatinine, Blood 0.62 mg/dL (0.40-1.00); Globulin, Blood 3.5 g/dL (2.2-4.0); Potassium, Blood 4.5 mmol/L (3.5-5.5); Total Protein, Blood 5.7 g/dL (6.4-8.2)
--- NOTE | 2023-01-26 18:51 | NUR ---
Shift summary. Assumed care at 0700, bedside report received from nightshift RN. Pt rested in bed throughout morning. Precedex titrated off at beginning of shift. Airvo settings initially 60 L/min, 85%, titrated down to 50 L/min, 50% Fi02. Pt up to chair mid shift, evaluated by Speech therapy and cleared to eat/drink, see ST assessment. Dobhoff removed at 1315, TF off. Pt remains in chair ATT. Worked with PT and OT today. Overall much improved in mentation and orientation this shift. Sitter remained at bedside throughout shift. Pt A&O x4, sats above 90% on current airvo settings. HR variable, orders obtained from Dr. Valentino to restart Cardizem if evening lopressor is not effective for rate control. All other reassessment data remains the same as initial shift. Pt assisted with turns Q2, all other needs met. VS stable att, will continue to monitor and report off to nightshift RN.
--- NOTE | 2023-01-26 20:16 | NUR ---
ASSUMED CARE PT IS A&O X4; PT IS MORE ARTICULATE AND ABLE TO CARRY CLEAR CONVERSATIONS; THERE IS SOME INTERMITTENT LOSS OF FOCUS. PT INTERMITTENTLY WILL ALSO HAVE DELUSIONS (MY BUILT THE POND OUTSIDE, I WANT TO USE THE BIDET NEXT DOOR THAT I BOUGHT), BUT IS EASILY REORIENTABLE. COOPERATIVE W/ CARE. DENIES CP, INCREASED SOB, OR NAUSEA. SPO2 >92% ON AIRVO; MAP >65; HR VARIABLE IN THE 90-120'S W/ CARDIZEM TITRATING (SEE FLOWSHEET).
--- NOTE | 2023-01-26 21:58 | NUR ---
UPDATE PT GIVEN EDUCATION ON DANGERS OF SMOKING AND OXYGEN USE. DENIES HAVING ANY PARAPHERNILIA. WILL CONTINUE TO MONITOR.
[2023-01-27] VITALS (23 sets, daily range): BP systolic 95–174; BP diastolic 61–116
[2023-01-27 04:13] LABS: Hematocrit 37.5 % (33.0-51.0); Hemoglobin 12.1 g/dL (11.5-16.0); Mean Corpuscular HGB 26.8 pg (26.0-34.0); Mean Corpuscular HGB Conc 32.3 g/dL (31.5-36.5); Mean Corpuscular Volume 83 fL (80-100); Mean Platelet Volume 12.4 fL (9.1-12.4); Platelet Count 548 K/mm3 (150-400); RDW Coefficient Variation 19.3 % (11.7-14.2); RDW Standard Deviation 54.4 fL (35.1-46.3); Red Blood Cell Count 4.51 M/mm3 (3.80-5.20)
[2023-01-27 04:22] LABS: NRBC ABSOLUTE 0.02 K/mm3 (0.00-0.02); NRBC Auto 0.1 /100 WBC (0.0-0.2); White Blood Cell Count 24.18 K/mm3 (4.00-11.30)
[2023-01-27 05:05] LABS: BASOPHILS PERCENT MAN 0 % (0-2); EOSINOPHILS PERCENT MAN 0 % (0-6); LYMPHOCYTES ABSOLUTE MAN 1.45 K/mm3 (0.84-5.20); LYMPHOCYTES PERCENT MAN 6 % (21-46); METAMYELOCYTE ABSOLUTE MAN 0.24 K/mm3 (0.00-0.00); METAMYELOCYTE PERCENT MAN 1 % (0-0); MONOCYTES ABSOLUTE MAN 0.72 K/mm3 (0.16-1.47); MONOCYTES PERCENT MAN 3 % (4-13); MYELOCYTE ABSOLUTE MAN 0.24 K/mm3 (0.00-0.00); MYELOCYTE PERCENT MAN 1 % (0-0); NEUTROPHILS ABSOLUTE MAN 21.52 K/mm3 (1.96-9.15); SEG NEUTROPHILS PERCENT MAN 89 % (41-73); TOTAL CELLS COUNTED 100
--- NOTE | 2023-01-27 05:25 | NUR ---
SHIFT SUMMARY PT IS LESS ORIENTED THAN AT START OF SHIFT; PT IS HALLUCINATING AGAIN. PT IS ORIENTED TO SELF AND HOSPITAL, BUT NEEDS REDIRECTION. PT IS COOPERATIVE AND RESPONDS APPROPRIATELY TO QUESTIONS (HALLUCINATION STATEMENTS ARE MADE AT RANDOM, NOT IN RESPONSE TO QUESTIONS). SPO2 >92% ON AIRVO; MAP >65; HR VARIABL IN THE 80-120'S. CARDIZEM GTT INFUSING (SEE FLOWSHEET). PT HAS NOT BEEN PULLING AT LINES OR BECAME AGITATED LIKE THIS RN'S INITIAL NIGHT W/ HER THIS WEEK. PUREWICK IN PLACE AND DRAINING APPROPRIATELY.
[2023-01-27 06:14] LABS: Albumin, Blood 2.4 g/dL (3.4-5.0); Albumin/Globulin Ratio 0.7 (0.8-1.8); Bilirubin, Total 0.5 mg/dL (0.1-1.0); Bun/Creatinine Ratio 48.5 (12.0-20.0); Calcium, Blood 8.6 mg/dL (8.5-10.1); Creatinine, Blood 0.68 mg/dL (0.40-1.00); Globulin, Blood 3.4 g/dL (2.2-4.0); Potassium, Blood 4.9 mmol/L (3.5-5.5); Total Protein, Blood 5.8 g/dL (6.4-8.2)
--- NOTE | 2023-01-27 07:00 | NUR ---
ASSUME CARE: I have assumed care of this patient.
--- NOTE | 2023-01-27 07:21 | NUR ---
PHARMACY: This RN spoke with pharmacist regarding metoprolol timing. Pt has not received 6AM metoprolol x 2 days due to confusion and fatigue in the packaging coordinator per night RN. Will move dose up two hours and discuss changing to long acting with provider today.
--- NOTE | 2023-01-27 09:35 | NUR ---
IGNITION RISK: Smoking status discussed with pt and spouse who is at bedside. Pt's spouse notes that neither he or the patient are smokers. Patient and family educated regarding ignition sourses and risk of injury while oxygen is in use. Patient denies smoking. Patient and family both verbalize understanding.
--- NOTE | 2023-01-27 10:53 | NUR ---
Spiritual Care Visit. Pt. is awake and sitting up in a chair. Spouse is present at bedside and welcomes my visit. Pt. is pleasant, but displays moments of confusion. Facilitate an extensive life review with both Pt. and spouse. Spouse displays evidence of being very grateful for the care she has received. Pt. also does display moments where she sees things outside the wondow that are not there. Matters of zaria and belief are considered and rapport with spouse is established. Pryaed for Pt. and the family. Both Pt. and Spouse verbalize gratitude for the spiritual care visit.
--- NOTE | 2023-01-27 18:57 | NUR ---
SHIFT SUMMARY: Patient up to chair for four hours today. She tolerated 6L NC for a few hours while awake. While napping, she was placed back on AIRVO. Diltiazem titrated off this morning; HR NSR throughout the day. Purewick in place and draining. PT/OT at bedside to work with pt today. Spouse and brother updated.
--- NOTE | 2023-01-27 19:33 | NUR ---
ASSUMED CARE OF PT AT 1900 PT RESTING IN BED WITH BROTHER AT BEDSIDE WHEN BEDSIDE REPORT WAS GIVEN. PT A/O X4. VITALS WNL AT THIS TIME. AIRVO AT 50/55% AT >92% SPO2. BED IN LOW POSTION AND CALL LIGHT WITHIN REACH. SITTER AT DOOR WITH CONTINUOSE MONITORING D/T HALUCINATIONS REPORTED THIS HOSPITAL STAY. PUREWICK IN PLACE. SEE FULL ASSESSMENT FOR FURTHER INFORMATION.
[2023-01-28] VITALS (13 sets, daily range): BP systolic 129–177; BP diastolic 71–94
--- NOTE | 2023-01-28 01:59 | NUR ---
APPROX 0145 SITTER FOR PT WAS SENT TO ANOTHER FLOOR. PT IS NOW TRYING TO GET OUT OF BED AND IS NOT LISTENING TO DIRECTIONS AND PULLED OUT HER PUREWICK. PT IS YELLING OUT AND WILL NOT FOLLOW DIRECTION.
--- NOTE | 2023-01-28 02:02 | NUR ---
BED ALARM ON. BED IN LOW POSTION. CALL LIGHT WITHIN REACH.
--- NOTE | 2023-01-28 02:28 | NUR ---
PT CONTINUOUSELY YELLING OUT THAT SHE IS COLD. WARM BLANKETS PROVIDED. PT TAKES THEM OFF IMMEDIATELY AND BEGINS TO TALK ABOUT CALLING HER FAMILY AND GETTING READY FOR THE [employer] [facility]. PT CONTINUOUSLY TAKES OXYGEN OFF OF FACE AND DESATS IMMEDIATELY TO LOW 80'S. WILL CONTINUE TO MONITOR PT.
--- NOTE | 2023-01-28 02:30 | NUR ---
HALIDOL 2.5 ORDERED BY SEGUNDO. PT STATES THE SHE GETS TARDIVE DYSKINESIA WHEN TAKING HALIDOL. MEDICATION NOT GIVEN.
--- NOTE | 2023-01-28 02:35 | NUR ---
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 ALSO ASKING TO GET HER DRESS ON FOR THE [employer].
--- NOTE | 2023-01-28 02:47 | NUR ---
SITTER AT DOOR WITH CONTINUOUS MONITORING AT THIS TIME.
[2023-01-28 03:45] LABS: Hematocrit 36.8 % (33.0-51.0); Hemoglobin 11.8 g/dL (11.5-16.0); Mean Corpuscular HGB 26.9 pg (26.0-34.0); Mean Corpuscular HGB Conc 32.1 g/dL (31.5-36.5); Mean Corpuscular Volume 84 fL (80-100); Mean Platelet Volume 12.7 fL (9.1-12.4); Platelet Count 581 K/mm3 (150-400); RDW Coefficient Variation 19.3 % (11.7-14.2); RDW Standard Deviation 55.5 fL (35.1-46.3); Red Blood Cell Count 4.38 M/mm3 (3.80-5.20)
[2023-01-28 03:46] LABS: NRBC ABSOLUTE 0.02 K/mm3 (0.00-0.02); NRBC Auto 0.1 /100 WBC (0.0-0.2); White Blood Cell Count 22.04 K/mm3 (4.00-11.30)
[2023-01-28 03:57] LABS: Albumin, Blood 2.2 g/dL (3.4-5.0); Albumin/Globulin Ratio 0.6 (0.8-1.8); Bilirubin, Total 0.6 mg/dL (0.1-1.0); Bun/Creatinine Ratio 55.2 (12.0-20.0); Calcium, Blood 8.4 mg/dL (8.5-10.1); Creatinine, Blood 0.63 mg/dL (0.40-1.00); Globulin, Blood 3.4 g/dL (2.2-4.0); Potassium, Blood 5.1 mmol/L (3.5-5.5); Total Protein, Blood 5.6 g/dL (6.4-8.2)
[2023-01-28 04:02] LABS: BAND PERCENT MAN 1 % (0-8); BASOPHILS PERCENT MAN 0 % (0-2); EOSINOPHILS PERCENT MAN 0 % (0-6); LYMPHOCYTES ABSOLUTE MAN 2.42 K/mm3 (0.84-5.20); LYMPHOCYTES PERCENT MAN 11 % (21-46); MONOCYTES ABSOLUTE MAN 0.66 K/mm3 (0.16-1.47); MONOCYTES PERCENT MAN 3 % (4-13); NEUTROPHILS ABSOLUTE MAN 18.95 K/mm3 (1.96-9.15); SEG NEUTROPHILS PERCENT MAN 85 % (41-73); TOTAL CELLS COUNTED 100
--- NOTE | 2023-01-28 05:39 | NUR ---
END OF SHIFT SUMMARY PT CONFUSED MOST OF THIS SHIFT WITH SIGNIFICANT HALLUCINATIONS AND VERY HARD TO REDIRECT. CARDIAC- SR WITH SBP 140'S-160'S. RESP- AIRVO 50/55%. DESATS WITH LITTLE EFFORT WITH SLOW RECOVERY. GI,- PT TOLERATING SOFT MECHANICAL DIET WITH COMPLAINT. ONE BM THIS SHIFT, LOOSE DARK BROWN. PUREWICK IN PLACE WITH YELLOW URINE PRESENT. BED IN LOW POSTION, BED ALARM ON, SITTER AT DOOR, CALL LIGHT WITHIN REACH. WILL CONTINUE TO MONITOR UNTIL DAY RN GIVEN REPORT.
--- NOTE | 2023-01-28 07:13 | NUR ---
ASSUME CARE: I have assumed care of this patient.
--- NOTE | 2023-01-28 11:02 | NUR ---
IGNITION RISK: Patient and family educated regarding ignition sourses and risk of injury while oxygen is in use. Patient denies smoking. Patient and family both verbalize understanding.
--- NOTE | 2023-01-28 12:36 | NUR ---
SHIFT/TRANSFER SUMMARY: Lisette did not sleep well again last night. 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 Pt was transferred to the commode with the sling, but was unable to have a BM. She was up in the chair for a few hours and worked with PT. Good PO intake for lunch. Airvo was transitioned to 6L NC which pt tolerated well. Purewick still in place with no skin breakdown. Barrier cream was applied to coccyx for blanchable redness and reported tenderness. Powerglide is positional due to left elbow bending. Pt taken to PCU room 10 by DARIUS.
--- NOTE | 2023-01-28 17:48 | NUR ---
SHIFT SUMMARY/PT TRANSFER PT TRANSFERRED TO PCU 10. HR STABLE. BP STABLE. THIS RN AGREES WITH PRIOR RN'S SHIFT ASSESSMENT. PUREWICK IN PLACE, DRAINING YELLOW URINE. PT ON AIRVO AT 40L AND 55% FIO2. HR STABLE. BP STABLE. NO CP OR PRESSURE REPORTED. PT ABLE TO ASSIST IN TURNS IN BED. PT ON 1:1 OBSERVATIONS D/T CONFUSION. PT HALLUCINATING AT TIMES. REPORTING TO LOOK FOR HER "RED DOG" IN THE ROOM. BED ALARM IN PLACE. CALL LIGHT WITHIN REACH. WILL CONT TO MONITOR UNTIL REPORT GIVEN TO NIGHTSHIFT RN.
--- NOTE | 2023-01-28 21:19 | NUR ---
ASSUMED PT CARE FROM CRYTAL RN ON . A&OX1 ONLY, UNABLE TO REORIENT AT THIS TIME. ABLE TO MAKE NEEDS KNOWNS AND FOLLOWS DIRECTIONS INTERMITTENTLY. DOES NOT APPEAR IN ANY DISTRESS AT THIS TIME. O2 SATS > 88% ON HIGH FLOW 45/60% WHEN AT REST. O2 SATS DECREASE INTO LOW 80'S WITH COUGHING OR WHEN PT FIDGETING WITH NASAL PRONGS. ABLE TO DRINK WATER WITHOUT O2 SATS DROPPING AT THIS TIME. PT DENIES FEELING SOB. HR SR IN THE 70'S, DENIES CHEST PAIN/PRESSURE. DENIES NAUSEA. PUREWICK IN PLACE DRINING CLEAR, YELLOW URINE. 1:1 SITTER PRESENT AT BEDSIDE. CALL LIGHT IN REACH.
[2023-01-29 00:23] VITALS: BP 132/83
[2023-01-29 03:38] VITALS: BP 148/81
[2023-01-29 05:07] LABS: Hematocrit 41.7 % (33.0-51.0); Hemoglobin 13.3 g/dL (11.5-16.0); Mean Corpuscular HGB 26.8 pg (26.0-34.0); Mean Corpuscular HGB Conc 31.9 g/dL (31.5-36.5); Mean Corpuscular Volume 84 fL (80-100); Mean Platelet Volume 12.6 fL (9.1-12.4); Platelet Count 613 K/mm3 (150-400); RDW Coefficient Variation 20.3 % (11.7-14.2); Red Blood Cell Count 4.97 M/mm3 (3.80-5.20)
[2023-01-29 05:08] LABS: White Blood Cell Count 26.94 K/mm3 (4.00-11.30)
[2023-01-29 05:29] LABS: BASOPHILS PERCENT MAN 0 % (0-2); EOSINOPHILS PERCENT MAN 0 % (0-6); LYMPHOCYTES ABSOLUTE MAN 2.96 K/mm3 (0.84-5.20); LYMPHOCYTES PERCENT MAN 11 % (21-46); METAMYELOCYTE ABSOLUTE MAN 0.26 K/mm3 (0.00-0.00); METAMYELOCYTE PERCENT MAN 1 % (0-0); MONOCYTES ABSOLUTE MAN 3.23 K/mm3 (0.16-1.47); MONOCYTES PERCENT MAN 12 % (4-13); NEUTROPHILS ABSOLUTE MAN 20.47 K/mm3 (1.96-9.15); SEG NEUTROPHILS PERCENT MAN 76 % (41-73); TOTAL CELLS COUNTED 100
[2023-01-29 05:38] LABS: Albumin, Blood 2.4 g/dL (3.4-5.0); Albumin/Globulin Ratio 0.7 (0.8-1.8); Bilirubin, Total 0.8 mg/dL (0.1-1.0); Bun/Creatinine Ratio 56.3 (12.0-20.0); Calcium, Blood 8.6 mg/dL (8.5-10.1); Creatinine, Blood 0.66 mg/dL (0.40-1.00); Globulin, Blood 3.5 g/dL (2.2-4.0); Total Protein, Blood 5.9 g/dL (6.4-8.2)
--- NOTE | 2023-01-29 07:33 | NUR ---
SHIFT SUMMARY: NO ACUTE CHANGES NOTED URING THIS SHIFT. PT CONTINUES TO BE ORIENTED TO SELF ONLY. NO HALLUCINATIONS NOTED. VITAL SIGNS STABLE. MEDICATED FOR ANXIETY AND PAIN, SEE EMAR. 1:1 SITTER PRESENT AT BEDSIDE.
[2023-01-29 07:55] VITALS: BP 166/86
[2023-01-29 12:30] VITALS: BP 125/87
[2023-01-29 15:16] VITALS: BP 151/84
--- NOTE | 2023-01-29 17:50 | NUR ---
SHIFT SUMMARY PT ALERT AND ORIENTED TO SELF AND FAMILY. PT CONFUSED FREQUENTLY. 1:1 SITTER AT BEDSIDE. PT REPORTS NO CP OR PRESSURE. HR STABLE. PT CONVERTS IN BETWEEN AFIB AND NSR. RATE CONTROLLED. BP STABLE. OXYGEN SATURATION MAINTAINED ABOVE 88% ON 45L 60% FIO2 ON AIRVO. PT BEDREST. ABLE TO ASSIST IN Q [address] DRAINING CLEAR YELLOW URINE. NO ACUTE CHANGES T/O SHIFT. PT EDUCATED ON FIRE SAFETY. WILL CONT TO MONITOR UNTIL REPORT GIVEN TO NIGHTSHIFT RN.
[2023-01-29 21:38] VITALS: BP 158/99
--- NOTE | 2023-01-29 22:03 | NUR ---
ASSUMED PT CARE FORM URBAN RN ON . A&OX1. FOLLOWS DIRECTIONS WITH DIFFICULTY, ABLE TO MAKE NEEDS KNOWN. DOES NOT APPEAR IN ANY DISTRESS AT THIS TIME, HAVING PLEASANT CONVERSATION WITH 1:1 SITTER AT BEDSIDE. HR SR IN 70'S. O2 SATS > 92% ON AIRVO 40L/65%. BP STABLE AT THIS TIME, SEE PT'S RECORD. PT TAKES EVENING MEDICATIONS WITHOUT DIFFICULTY IN APPLESAUCE. LEFT RESTING IN BED. CALL LIGHT IN REACH. 1:1 SITTER AT BEDSIDE.
[2023-01-30 01:11] VITALS: BP 116/73
[2023-01-30 04:41] VITALS: BP 149/85
--- NOTE | 2023-01-30 05:29 | NUR ---
SHIFT SUMMARY: SLEEPING INTERMITTENTLY. MEDICATED FOR ANXIETY AND PAIN, SEE EMAR. O2 SATS MAINTAING > 92% ON HIGH FLOW 45L/65%. OTHER VITAL SIGNS STABLE. 1:1 SITTER PRESENT AT BEDSIDE. CALL LIGHT IN REACH.
[2023-01-30 07:19] VITALS: BP 155/75
[2023-01-30 12:26] VITALS: BP 115/71
[2023-01-30 15:46] VITALS: BP 136/83
--- NOTE | 2023-01-30 17:33 | NUR ---
SHIFT SUMMARY: PT SLEEPS INTERMITTENTLY THIS AM, WHEN AWAKE PT DECLINES PT/OT/ST WELL BREAKFAST AND LUNCH. THIS AFTERNOON PT IS MORE AWAKE, ANSWERING QUESTIONS APPROPRIATELY, SPEECH SLIGHTLY SLURRED AND SOFT, FREQUENT CONFUSION BUT PT IS ABLE TO MAKE NEEDS KNOWN. O2 SATS MAINTAINED >92% ON HHNC AT 40 L/MIN AND 50-55%. SR ON MONITOR W/RATE 60s-70s. MULTIPLE SMALL BMs THIS SHIFT, SOFT AND BROWN. ATTENDS IN PLACE W/PUREWICK SET TO SUCTION, CHECKED OFTEN AND CHANGED PRN. PT HAS BEEN ASSISTING IN TURNS/REPOSITIONING. PT EDUCATED RE: RISK OF IGNITABLE SUBSTANCES WHILE OXYGEN IN USE, PT HAS DENIED POSSESSION OF OR INTENT TO USE IGNITABLE SUBSTANCES. 1:1 MONITORING HAS NOT BEEN REQUIRED THROUGH THIS ENTIRE SHIFT, BUT CLOSER MONITORING HAS BEEN REQUIRED. AT THIS TIME, PT RESTING QUIETLY IN BED W/DINNER TRAY AND CALL LIGHT IN REACH. WILL CONTINUE TO MONITOR AND TREAT ACCORDINGLY UNTIL CHANGE OF SHIFT.
[2023-01-30 21:02] VITALS: BP 140/79
--- NOTE | 2023-01-30 21:13 | NUR ---
ASSUMED PT CARE FROM ELYSIA SPAULDING ON . A&OX1-2. DENIES ANY SOB OR CHEST PAIN/PRESSURE THIS EVENING. O2 SATS 94% ON HIGH FLOW O2 40L/55%. RESPIRATIONS EVEN AND UNLABORED. HR SR IN THE 70'S. BP STABLE, SEE PT RECORD. PT DOES NOT APPEAR IN ANY DISTRESS. PT ABLE TO TAKE EVENING MEDICATIONS WHOLE WITH WATER WITHOUT ANY COUGHING OR CHOKING. LEFT RESTING IN BED. 1:1 SITTER AT BEDSIDE.
[2023-01-31 00:27] VITALS: BP 104/82
--- NOTE | 2023-01-31 02:58 | NUR ---
PT SLEEPING INTERMITTENTLY. REPOSITIONING SELF IN BED WITH ASSISTANCE OF 1:1 SITTER. MEDICATED FOR PAIN WITH PO PAIN MEDS, SEE EMAR. PT REQUESTING IV ATIVAN, EDUCATION PROVIDED. CALL LIGHT IN REACH.
[2023-01-31 08:06] VITALS: BP 133/62
[2023-01-31 12:13] VITALS: BP 124/77
--- NOTE | 2023-01-31 14:24 | NUR ---
TRANSFER/SHIFT SUMMARY: PT MOSTLY ALERT T/OUT DAY W/SHORT NAPS. 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 SPOUSE DENIES THIS CLAIM). PT HAS BEEN ABLE TO MAKE NEEDS KNOWN. PT TRANSITIONED TO OXY MASK TODAY, O2 SATS MAINTAINED >92%, CURRENT SETTING 12 L/MIN. PUREWICK CONTINUES IN PLACE W/ATTENDS CHECKED OFTEN AND CHANGED PRN. PT UP TO BEDSIDE CHAIR USING FWW FOR APPROX 1 HOUR, TOLERATES WELL. PT CONTINUES TO DENY IGINITABLE RESOURCES. PT ADMISSION STATUS CHANGED TO MEDICAL, RECEIVES NEW ROOM ASSIGNMENT, REPORT GIVEN TO JASSON CABELLO TO RECEIVE PT.
--- NOTE | 2023-01-31 15:00 | NUR ---
PT ARRIVED TO ROOM FROM PCU VIA BED WITH HER BELONGINGS. O2 ON AT 12L/M ON ARRIVAL AND PLACED ON 10L/M VIA MASK PER REPORT FROM B2B OUTSIDE SALES REPRESENTATIVE THAT PULSE OX SHOWED 97% ON 12L/M. SETTLED IN AND ORIENTED TO ROOM.
[2023-01-31 15:36] VITALS: BP 111/64
--- NOTE | 2023-01-31 18:36 | NUR ---
SHIFT SUMMARY PT ASKED TO USE COMMODE SHORTLY AFTER ARRIVAL AND 2 PERSON ASSIST TO COMMODE BUT ENDED UP REQUIRING 3 STAFF TO ASSIST HER BACK. LEGS WANTED TO BUCKLE UNDER HER. VIRTUAL CLINICAL PROFESSOR STARTED FOR SAFETY. HAS BEEN SLEEPING SINCE CONTINUOUS PULSE OX PLACED. HAS OCCASIONAL COUGH NOTED. APPEARS TO BE TOLERATING THE 10L/M BY MASK WHILE SLEEPING. BROTHER CAME TO VISIT FOR A SHORT TIME.
[2023-01-31 19:36] VITALS: BP 101/89
--- NOTE | 2023-02-01 04:08 | NUR ---
SHIFT ASSESSMENT PT WAS VERY DISORIENTATED WHEN I FIRST WOKE PT, BUT SOON BECAME A/O AND ATE DINNER WITH GOOD APPITITE. SAT O2 95 WITH NC WHILE EATING AND HAD NO C/O PAIN NOR DISTRESS. PT IS A GOOD HISTORIAN BUT BEGAN HAVING BOUTS OF CONFUSION INTO THE NIGHT, EASILY REOIRIENTED AND REMAINED COOPERATIVE. NIGHT PROGRESS PT BECAME AGITATED AND SEROQUIL WAS GIVEN WHICH SEEMED TO HELP, PT WAS ALSO GIVEN PAIN MEDICATION DUE TO BACK PAIN. THROUGHOUT PT MAINTAINED 95 TO 98 PERCENT ON HIGHFLO O2 AND IS NOW LAYING ON RIGHT SIDE WITH NO DISTRESS.
[2023-02-01 06:21] VITALS: BP 124/71
[2023-02-01 07:19] VITALS: BP 91/56
--- NOTE | 2023-02-01 17:16 | NUR ---
SHIFT SUMMARY PT AWAKE AND ALERT MOST OF THE DAY. ALERTNESS IMPROVING THE DAY HAS PROGRESSED. DENIES RESP DISTRESS. DECLINED TO GET UP TODAY OR WORK WITH THERAPY STATING HER BACK HURT TO MUCH. O2 DOWN TO 8L/M BY MASK WITH SATS REMAINING IN LOW TO MID 90'S AND NO NEW RESP DISTRESS. BLOOD SUGAR HIGHER AT LUNCH AND QUESTIONED PT ABOUT IT BEING HIGHER AFTER NOT EATING ANY FOOD. SAW A MOROCCAN BROS COFFEE ON HER TABLE AND ASKED IF THERE WAS SOMETHING IN HER COFFEE THAT WOULD ELEVATE BLOOD SUGAR AND SHE SAID JUST THE BAILEYS AND HUNGARIAN CREAM. EXPLAINED TO PT HER WAS NOT TO BRING ALCOHOL TO HER WHILE SHE IS IN HOSPITAL WITH PT STATING SHE UNDERSTOOD. DENIED ANY IGNITION SOURCE IN ROOM AND EDUCATED ON FIRE RISK WHILE IN HOSPITAL ESPECIALLY ON OXYGEN.
[2023-02-01 20:05] VITALS: BP 116/88
--- NOTE | 2023-02-02 04:10 | NUR ---
SHIFT SUMMARY ADMITTED FOR ACUTE RESP FAILURE. LIMITED CODE (NO CPR). POWERGLIDE IV IN PLACE. ACHS CBG'S. 6 LPM HIGH FLOW O2 VIA MASK. SHE IS ON PREDNISONE FOR CHRONIC RA. SHE DOES PULL OFF HER OXYGEN AT TIMES AND DESATURATE. HX OF HALLUCINATIONS AND PULLING OFF LINES. SHE IS EXTREMELY WEAK, WE ARE BEDREST FOR NOW. PUREWICK IN PLACE.
[2023-02-02 05:20] VITALS: BP 116/61
[2023-02-02 05:54] LABS: Hematocrit 36.6 % (33.0-51.0); Hemoglobin 11.6 g/dL (11.5-16.0); Mean Corpuscular HGB 27.2 pg (26.0-34.0); Mean Corpuscular HGB Conc 31.7 g/dL (31.5-36.5); Mean Corpuscular Volume 86 fL (80-100); Mean Platelet Volume 12.4 fL (9.1-12.4); Platelet Count 754 K/mm3 (150-400); RDW Coefficient Variation 20.3 % (11.7-14.2); RDW Standard Deviation 58.9 fL (35.1-46.3); Red Blood Cell Count 4.26 M/mm3 (3.80-5.20); White Blood Cell Count 20.67 K/mm3 (4.00-11.30)
[2023-02-02 05:58] LABS: Albumin/Globulin Ratio 0.6 (0.8-1.8); Bilirubin, Total 0.4 mg/dL (0.1-1.0); Bun/Creatinine Ratio 33.7 (12.0-20.0); Calcium, Blood 8.2 mg/dL (8.5-10.1); Creatinine, Blood 0.74 mg/dL (0.40-1.00); Globulin, Blood 3.2 g/dL (2.2-4.0); Potassium, Blood 4.2 mmol/L (3.5-5.5); Total Protein, Blood 5.2 g/dL (6.4-8.2)
[2023-02-02 07:26] VITALS: BP 103/71
--- NOTE | 2023-02-02 10:00 | NUR ---
PT DRYER OPERATOR CAMERA DC/D. PT COOPERATIVE WITH CARE AND CONTINUOUS PULSE OXIMETER IN PLACE. KEEPS MASK ON GENERALLY AND OXIMETER NOTIFIES IF IT HAS BEEN REMOVED.
--- NOTE | 2023-02-02 14:00 | NUR ---
Spiritual Care Visit. Pt. is awake in her bed and welcomes my visit. Pt. displays evidenc of being engaged and aware, and then also has brief moments of confusion. Facilitated a more current life review. Listen with interest, empathy and a calming presence. Pt. displayed evidence of trust with this engine dynamometer tester and verbalized gratitude for the spiritual care visit.
[2023-02-02 16:18] VITALS: BP 101/70
--- NOTE | 2023-02-02 18:16 | NUR ---
SHIFT SUMMARY PT UP TO SIDE OF BED AFTER P.T. THIS AFTERNOON AND STAYED THERE FOR ANY HOUR AND A HALF. STARTED TO FEEL QUITE ANXIOUS AND SPOKE WITH HER ABOUT WHY ATIVAN DC/D. DISCUSSED WITH AND ATARAX ORDERED ONCE. PT AGREEABLE TO TAKE. PT REQUESTING FOOD FROM FAMILY WHICH SHE IS REMINDED NO ALCOHOL WHICH PT STATES HER NOTIFIED HER SHE NEVER GOT BAILEYS YESTERDAY IN HER COFFEE DESPITE HOW GOOD IT TASTED. DID WORK WITH BOTH THERAPIES TODAY. PREMEDICATED FOR P.T. THIS AFTERNOON. STATED THE O2 MASK WAS MAKING HER CLAUSTROPHOBIC AND WANTED TO TRY HIGH FLOW TUBING. O2 NEEDED TO BE INCREASED TO 8L/M TO KEEP SATS IN THE LOW 90'S.
[2023-02-02 19:32] VITALS: BP 98/70
--- NOTE | 2023-02-03 05:33 | NUR ---
PT IS A&O4 OVERNIGHT, 8L HIFLO SATS LOW 90'S, PRN PAIN MEDICATION GIVEN FOR BACK PAIN PER MAR, NO ACUTE OVERNIGHT EVENTS, FIRE SAFETY MITIGATION EDUCATION PROVIDED, CONTINUE POC
[2023-02-03 07:45] VITALS: BP 106/73
--- NOTE | 2023-02-03 10:18 | NUR ---
MD CALL MS MURILLO IS REQUESTING ATIVAN FOR ANXIETY. NO ATIVAN ORDER ON SEP. I SPOKE WITH DR MIN ON THE TELEPHONE AND SHE WILL REVIEW MEDICATIONS.
--- NOTE | 2023-02-03 10:33 | NUR ---
RN NOTE MS DE LUNA WAS ABLE TO ANSWER ALL ORIENTATION QUESTIONS THIS AM. SHE WORKED WITH P.T., BUT P.T. REPORTED A LACK OF MOTIVATION FROM PT IN DOING THE EXERCISES. SHE SAT ON THE EDGE OF THE BED ONLY AND DID NOT STAND. SHE IS C/O ANXIETY AND REQUESTING ATIVAN. SHE IS TOLERATING 6L N/C WITH SATS 91% ON CONTINUOUS PULSE OX. PT EDUCATION RE IGNITION SOURCES AND RISK OF INJURY WHILE OXYGEN IS IN USE. PT DENIES SMOKING AND VERBALISED UNDERSTANDING. WILL CONTINUE TO ASSESS RISK ON HOURLY ROUNDING. BED LOW, CALL LIGHT IN REACH.
[2023-02-03 14:35] VITALS: BP 102/68
--- NOTE | 2023-02-03 15:13 | NUR ---
SHIFT SUMMARY SEE PRIOR RN NOTE. PT ABLE TO ANSWER ORIENTATION QUESTIONS BUT ALSO SAYS CONFUSED COMMENTS. SHE WAS CALLING OUT LOUDLY FOR HER DOG WHOM SHE SAID IS AT HOME, WHEN I ASKED HER IF SHE KNEW SHE WAS IN THE HOSPITAL SHE SAID YES, BUT CONTINUED TO CALL FOR HER DOG. SHE ASKS FREQUENTLY FOR ATIVAN. SHE HAS DISCUSSED THIS WITH DR SANCHEZ AND DR MIN THIS MORNING AND DR SANCHEZ AGAIN THIS AFTERNOON. SHE GOT UP TO THE CHAIR USING HUYER LIFT. SHE HAS BEEN ON 6L N/C MAINTAINING AT AROUND 91% NO FURTHER C/O PAIN SINCE ASSESSMENT QUESTIONS THIS AM. FAMILY VISITED TODAY. BED LOW, CALL LIGHT IN REACH. BED ALARM ON.
[2023-02-03 21:17] VITALS: BP 79/66
[2023-02-03 21:27] VITALS: BP 90/66
[2023-02-04 02:26] VITALS: BP 98/56
--- NOTE | 2023-02-04 06:45 | NUR ---
SHIFT SUMMARY PT IS A&03-4 SOME CONFUSION OVERNIGHT TO PLACE, 5L HI HENRIETTA SATS LOW 90'S, PRN PAIN MEDICATION GIVEN PER MAR FOR GEN WHOLE BODY PAIN, PT ASKED FOR ATIVEN WITH CONCERNS FOR BENZO WITHDRAWAL, 2 SMALL BM'S OVERNIGHT FIRE MITIGATION ED PROVIDED, CONTINUE POC
[2023-02-04 07:26] VITALS: BP 107/69
--- NOTE | 2023-02-04 10:19 | NUR ---
RN NOTE MS LIDIA C/O FEELINGS OF ANXIETY, REQUESTING ATIVAN. S/B MDS AT BEDSIDE. ZOFRAN GIVEN FOR C/O NAUSEA, PT SAID THIS HELPED. OXY GIVEN FOR 10/10 PAIN THAT SHE SAID IS EVERYWHERE, DOWN TO 9/10. PT RESTING IN BED, WATCHING TELEVISION. HER CONDITION LOOKS STABLE COMPARED TO YESTERDAY. UNABLE TO WEAN OXYGEN THIS AM SATS ~90-91% ON 6L NC. PT EDUCATED RE IGNITION SOURCES AND RISK OF INJURY WHILE OXYGEN IS IN USE. PT DENIES SMOKING AND VERBALISES UNDERSTANDING. WILL CONTINUE TO ASSESS RISK ON HOURLY ROUNDS.
--- NOTE | 2023-02-04 13:22 | NUR ---
MD CALL MS MURILLO REQUESTED TO HAVE LYRICA TIME CHANGED TO [address] SIMS CALLED AND GAVE TELEPHONE ORDER TO CHANGE THE TIME. ORDER ENTERED INTO adQ. MS MURILLO IS SITTING UP IN THE CHAIR ON 4L NC ON CONTINUOUS PULSE OX, SATS 89% CURRENTLY.
[2023-02-04 15:09] VITALS: BP 112/74
--- NOTE | 2023-02-04 15:55 | NUR ---
MD ANN WATT, PT'S CALLED CONCERNED ABOUT MS MURILLO NOT RECEIVING HER ATIVAN. I TOLD HIM THAT THIS HAS BEEN DISCUSSED WITH HIS 'S DOCTORS AND HIS TODAY AND YESTERDAY AND THAT THERE ARE CONCERNS FOR CONFUSION. ALYSA SAID THAT THIS LEVEL OF CONFUSION IS BASELINE FOR MS MURILLO SINCE HER STROKE. HE SAID THAT THEY HAVE MADE APPOINTMENTS TO SEE A NEUROLOGIST IN [place] BUT HAVE NOT ATTENDED APPOINTMENTS DUE TO HOSITALIZATIONS. DR SIMS WAS CALLED TO NOTIFY OF THE CONCERN AND TO SHARE THE INFORMATION FROM THE CONVERSATION. HE WILL DISCUSS WITH MD TEAM.
--- NOTE | 2023-02-04 16:25 | NUR ---
SHIFT SUMMARY MS MURILLO IS ABLE TO ANSWER ORIENTATION QUESTIONS BUT HAS SAID SEVERAL CONFUSED COMMENTS THROUGHOUT THE DAY. SHE IS NOW ON 3L NC WITH CONTINUOUS PULSE OX 90%. SHE WORKED WITH PHYSICAL THERAPY THIS AFTERNOON DOING EXERCISES BUT DID NOT STAND. HER HUSAND SAID HER BASELINE PRIOR TO ADMISSION WAS WALKING WITH A WALKER IN THE HOME. WARREN LIFT USED TO ASSIST PT TO THE CHAIR THIS AFTERNOON. GENERAL C/O PAIN "EVERYWHERE", HEAT PAD, REPOSITIONING AND OXY TAKE THE EDGE OFF THE PAIN. BED LOW, CALL LIGHT IN REACH.
[2023-02-04 19:41] VITALS: BP 121/84
--- NOTE | 2023-02-05 04:34 | NUR ---
PT IS A&O4, MILD MOMENTS OF CONFUSION, 3L NC SATS LOW 90'S, BEDREST WITH PURIWICK IN PLACE, PRN PAIN MEDICATION GIVEN FOR GENERALIZED PAIN PER MAR X1 THIS SHIFT, PT WAS ABLE TO REST MUCH BETTER OVERNIGHT, NO ACUTE OVERNIGHT EVENTS, CONTUNE POC
[2023-02-05 07:35] VITALS: BP 95/57
[2023-02-05 09:14] VITALS: BP 91/69
--- NOTE | 2023-02-05 15:52 | NUR ---
PT RECEIVED PRN PT RECEIVED PRN ROXICODONE FOR PAIN BETWEEN HER SHOULDER BLADES. PT REPORTING PAIN /, STATES THAT THIS IS CHRONIC PAIN FROM [facility] "MY SHOULDERS FELL APART." PT REPORTS DESIRE TO NAP.
[2023-02-05 16:00] VITALS: BP 97/83
--- NOTE | 2023-02-05 16:19 | NUR ---
SHIFT SUMMARY ASHLEY'S BP WAS LOW EARLIER THIS MORNING. SHE C/O FEELING ANXIOUS AND RECEIVED PRN ATIVAN. AFTER THAT SHE SLEPT, AND REPORTED THAT SHE FELT MUCH BETTER. MAINTAINING SATS >90% ON 3LPM OXYGEN VIA NC. SHE IS A BRENDON LIFT TO THE CHAIR. SHE RECEIVED A BED BATH TODAY BY TWO PARKING ENFORCEMENT TECHNICIAN'S. MOBILITY RIVERA, SHE IS ABLE TO ROLL WELL IN BED TO PARTICIPATE IN CARE. PT REPORTS THAT DAILY ANXIETY ATTACKS ARE A USUAL FOR HER, AT HOME. LIMITED CODE, NO CPR.
[2023-02-05 19:16] VITALS: BP 108/68
--- NOTE | 2023-02-05 20:49 | NUR ---
NURSE NOTE VOICED WANTED "ATIVAN" TONIGHT. ATIVAN ONLY ORDERED FOR AM, MD NOTIFIED, MD (DR CARRION) VOICED THE ATIVAN CAUSED "CONFSION" FOR HER, AND REFUSED TO ORDER A DOSE FOR TONIGHT. HE WANTED PT TO TAKE THE HS SEROQUEL INSTEAD. THIS WAS PASSED ON TO PT, PT VOICED FRUSTRATION RE NO ATIVAN TONIGHT. TOOK THE SEROQUEL, THEN CALLED HER
--- NOTE | 2023-02-05 22:24 | NUR ---
DR CARRION CAME IN TO SEE PT AFTER WE DISCUSSED ATIVAN WITH PT. HE DISCUSSED HIS RATIONALE WITH PT RE ATIVAN. PT VOICED FRUSTRATION WITH IT. SHE LATER DAID THAT SHE WOULD DISCUSS IT WITH HER CERTIFIED MEDICINE AIDE TOMORROW. CALL LIGHT IN REACH. ZOFRAN GIVEN FOR NAUSEA. WILL CONTINUE TO MONITOR
[2023-02-06 01:41] VITALS: BP 109/67
--- NOTE | 2023-02-06 03:05 | NUR ---
POLICE LIEUTENANT PRECINCT SUMMARY VSS. CBG'S MONITORED. WAS 126 AT 0230. REQUESTED "ATIVAN" AT HS FOR C/O ANXIETY, BUT NO ATIVAN ON SEP. MD NOTIFIED, REFUSED TO REORDER ATIVAN, VOICED IT WAS CAUSING PT TO BECOME MORE CONFUSED. PT VOICED FRUSTRATION WITH THIS, MD CAME TO ROOM TO DISCUSS IT WITH HER. PT ACCEPTED SEROQUEL ORDERED, BUT ALSO VOICED SHE WOULD DISCUSS IT WITH HER PERSONAL MD IN THE AM. HAS BEEN RESTING QUIETLY WITH INTERMITTENT INTERRUPTIONS. CALL LIGHT IN REACH. O2 SATS IN THE 90'S AND HR WNL. CALL LIGHT IN REACH. WILL CONTINUE TO MONITOR
--- NOTE | 2023-02-06 04:37 | NUR ---
NURSE NOTE RECEIVED FIRE IGNITION TEACHING RE NOT TO SMOKE WHILE ON O2 AND NOT TO SMOKE IN GENERAL EARLIER IN THE SHIFT.
[2023-02-06 06:17] LABS: Bun/Creatinine Ratio 49.8 (12.0-20.0); Calcium, Blood 8.2 mg/dL (8.5-10.1); Creatinine, Blood 0.6 mg/dL (0.40-1.00); Potassium, Blood 4.2 mmol/L (3.5-5.5)
[2023-02-06 07:25] VITALS: BP 127/88
[2023-02-06] MEDS ORDERED: ELIQUIS5 M2 PO (16:25)
[2023-02-06] MEDS ORDERED: PRED20 PO (16:26)
[2023-02-06] MEDS ORDERED: BASAGLAR K100 UNIT/1 SC (16:27)
--- NOTE | 2023-02-06 17:08 | NUR ---
DISCHARGE SUMMARY PATIENT IS ALERT AND ORIENTED. PATIENT HAS HAD NO ACUTE EVENTS THIS SHIFT. VITAL SIGNS REVIEWED. PATIENT IS DISCHARGING HOME WITH AND FRIEND TRANSPORTING PATIENT HOME. PATIENT HAS NOT COMPLAINED OF SOB, NAUSEA, VOMITTING OR PAIN THIS SHIFT.
== END 2023-02-06 17:01 | disposition home health service (06) | DRG 177 ==
LOC: ER 14:55 → PCU 18:42 → MEDS 18:42 → ICUE 18:42 → PCU 19:02 → ICUE 01-19 08:28 → PCU 01-28 12:53 → MEDS 01-31 14:34
PROVIDERS: Family Medicine; Family Medicine Adult Medicine; Internal Medicine; Internal Medicine Critical Care Medicine; Nurse Practitioner Acute Care; Student in an Organized Health Care Education/Training Program; ADMIT Internal Medicine
PROC: 5A09357 Assistance with Respiratory Ventilation, Less than 24 Consecutive Hours, Continuous Positive Airway Pressure (ICD-10-PCS; principal; 2023-01-17)
PROC: 4A133R1 Monitoring of Arterial Saturation, Peripheral, Percutaneous Approach (ICD-10-PCS; 2023-01-19)
PROC: 5A0945A Assistance with Respiratory Ventilation, 24-96 Consecutive Hours, High Flow/Velocity Cannula (ICD-10-PCS; 2023-01-20)
PROC: 0DH67UZ Insertion of Feeding Device into Stomach, Via Natural or Artificial Opening (ICD-10-PCS; 2023-01-22)
DX: J69.0 Pneumonitis due to inhalation of food and vomit (principal); G92.8 Other toxic encephalopathy; I26.93 Single subsegmental thrombotic pulmonary embolism without acute cor pulmonale; J96.21 Acute and chronic respiratory failure with hypoxia; J96.22 Acute and chronic respiratory failure with hypercapnia; F11.20 Opioid dependence, uncomplicated; D84.9 Immunodeficiency, unspecified; E87.3 Alkalosis; J84.9 Interstitial pulmonary disease, unspecified; I48.0 Paroxysmal atrial fibrillation; M06.9 Rheumatoid arthritis, unspecified; G47.33 Obstructive sleep apnea (adult) (pediatric); M79.7 Fibromyalgia; G43.909 Migraine, unspecified, not intractable, without status migrainosus; F32.A Depression, unspecified; J44.9 Chronic obstructive pulmonary disease, unspecified; G89.4 Chronic pain syndrome; G62.9 Polyneuropathy, unspecified; F41.0 Panic disorder [episodic paroxysmal anxiety]; F43.10 Post-traumatic stress disorder, unspecified; M85.80 Other specified disorders of bone density and structure, unspecified site; E87.6 Hypokalemia; M81.0 Age-related osteoporosis without current pathological fracture; R74.8 Abnormal levels of other serum enzymes; E88.09 Other disorders of plasma-protein metabolism, not elsewhere classified; E77.8 Other disorders of glycoprotein metabolism; R74.01 Elevation of levels of liver transaminase levels; D75.1 Secondary polycythemia; E87.8 Other disorders of electrolyte and fluid balance, not elsewhere classified; Z20.822 Contact with and (suspected) exposure to COVID-19; Z88.8 Allergy status to other drugs, medicaments and biological substances; Z91.048 Other nonmedicinal substance allergy status; Z86.73 Personal history of transient ischemic attack (TIA), and cerebral infarction without residual deficits; Z86.711 Personal history of pulmonary embolism; Z86.718 Personal history of other venous thrombosis and embolism; Z91.148 Patient's other noncompliance with medication regimen for other reason; Z96.612 Presence of left artificial shoulder joint; Z98.890 Other specified postprocedural states; Z96.611 Presence of right artificial shoulder joint; Z90.89 Acquired absence of other organs; Z90.721 Acquired absence of ovaries, unilateral; Z87.891 Personal history of nicotine dependence; Z79.899 Other long term (current) drug therapy; Z79.01 Long term (current) use of anticoagulants; Z79.82 Long term (current) use of aspirin; Z79.02 Long term (current) use of antithrombotics/antiplatelets; Z79.51 Long term (current) use of inhaled steroids
CPT/HCPCS: 31720; 36415; 36600; 51703; 71045; 71260; 80048; 80053; 80162; 81001; 81003; 82803; 82947; 83735; 83880; 84100; 84145; 84439; 84443; 84481; 84484; 85014; 85018; 85025; 85027; 85049; 85520; 85610; 85730; 87040; 87070; 87205; 87449; 87633; 92526; 92610; 93005; 93010; 93306; 93970; 94640; 94644; 94660; 94664; 94760; 94762; 96365-59; 97110; 97116; 97162; 97166; 97168; 97530; 97535; 99285-25; A9270; C1751; J0282; J0360; J0456; J0696; J1160; J1644; J1815; J1940; J2060; J2405; J2543; J2920; J3010; J3480; J7030; J7050; J7060; J7512; Q9967

== ENCOUNTER 2023-02-13 11:21 | Inpatient (IN) | payer MEDICARE ==
[~2023-02-13] VITALS: Ht 172.7 cm; Wt 79.4 kg
[~2023-02-13 11:21] MED LIST changes: +BASAGLAR K100 UNIT/1 SC
[2023-02-13 12:02] LABS: BASOPHILS ABSOLUTE AUTO 0.05 K/mm3 (0.00-0.23); BASOPHILS PERCENT AUTO 1 % (0-2); EOSINOPHILS ABSOLUTE AUTO 0.27 K/mm3 (0.00-0.68); EOSINOPHILS PERCENT AUTO 2 % (0-6); Hematocrit 36.5 % (33.0-51.0); Hemoglobin 11.6 g/dL (11.5-16.0); IMMATURE GRAN ABSOLUTE AUTO 0.12 K/mm3 (0.00-0.10); IMMATURE GRAN PERCENT AUTO 1 % (0-1); LYMPHOCYTES ABSOLUTE AUTO 1.14 K/mm3 (0.84-5.20); LYMPHOCYTES PERCENT AUTO 10 % (21-46); MONOCYTES ABSOLUTE AUTO 1.26 K/mm3 (0.16-1.47); MONOCYTES PERCENT AUTO 11 % (4-13); Mean Corpuscular HGB 27.6 pg (26.0-34.0); Mean Corpuscular HGB Conc 31.8 g/dL (31.5-36.5); Mean Corpuscular Volume 87 fL (80-100); Mean Platelet Volume 11.9 fL (9.1-12.4); NEUTROPHILS ABSOLUTE AUTO 8.22 K/mm3 (1.96-9.15); NEUTROPHILS PERCENT AUTO 74 % (41-73); NRBC ABSOLUTE 0.02 K/mm3 (0.00-0.02); NRBC Auto 0.2 /100 WBC (0.0-0.2); Platelet Count 481 K/mm3 (150-400); RDW Standard Deviation 71.7 fL (35.1-46.3); Red Blood Cell Count 4.21 M/mm3 (3.80-5.20); White Blood Cell Count 11.06 K/mm3 (4.00-11.30)
[2023-02-13 12:15] LABS: Albumin, Blood 2.4 g/dL (3.4-5.0); Albumin/Globulin Ratio 0.6 (0.8-1.8); Bilirubin, Total 0.5 mg/dL (0.1-1.0); Bun/Creatinine Ratio 16.2 (12.0-20.0); Calcium, Blood 9.3 mg/dL (8.5-10.1); Creatinine, Blood 0.56 mg/dL (0.40-1.00); Potassium, Blood 3.4 mmol/L (3.5-5.5); Total Protein, Blood 6.4 g/dL (6.4-8.2)
[2023-02-13] MEDS ORDERED: PREGABALIN 200 MG (15:08)
[2023-02-13] MEDS ORDERED: BASAGLAR K100 UNIT/3 SC (15:10)
[2023-02-13 19:16] LABS: Base Excess Venous 5.4 mmol/L; Bicarbonate Venous 28.6 mmol/L (24.0-30.0); PCO2 Venous 48.6 mmHg (38-42)
[2023-02-13 23:46] VITALS: BP 87/61
[2023-02-13 23:48] VITALS: BP 95/59
[2023-02-14] VITALS (9 sets, daily range): BP systolic 83–123; BP diastolic 59–74
--- NOTE | 2023-02-14 00:24 | NUR ---
PT ADMITTED FROM ED. SLID PT TO BED VIA SLIDDER SHEET AND 4 ASSIST. A&OX2-3, FORGETFUL. COOPERATIVE AND ABLE TO MAKE NEEDS KNOWN AT THIS TIME. SPEECH SLIGHTLY SLURRED WITH SLIGHT LEFT SIDED FACIAL DROOP FROM PREVIOUS CVA PER PT. BILATERAL WEAKNESS IN LEGS. DENIES ANY FEELINGS OF CHEST PAIN/PRESSURE, SOB, OR NAUSEA. HR A-FBI 130 INITIALLY WHEN ARRIVING AT ROOM, CONVERTED SPONTANIOUSLY TO SR IN 70'S. BP'S SOFT WITH MAP > 65, SEE RECORDED VITAL SIGNS. O2 SATS 98% ON 6 LPM, TITRATED TO 2 LPM WITH O2 SATS REMAINING > 92%. PER REPORT THIS IS PT'S BASELINE O2 USE AT HOME. ORIENTED TO ROOM AND CALL LIGHT. DR. RAYMOND CALL TO CLARIFY PT'S ORDERS FOR LASIX, METOPROLOL, AND IV BOLUS WITH PT'S CURRENT VITAL SIGNS. INSTRUCTED TO GIVE LASIX, HOLD BOLUS, AND HOLD METOPROLOL UNTIL A.M. DOSE. PT LEFT RESTING IN BED. CALL LIGHT IN REACH. BED IN LOW POSITION.
[2023-02-14 04:35] LABS: Calcium, Blood 8.6 mg/dL (8.5-10.1); Creatinine, Blood 0.72 mg/dL (0.40-1.00)
--- NOTE | 2023-02-14 05:22 | NUR ---
PT COMPLAINING OF PAIN IN ABDOMEN. RELIEF OBTAINED WITH ZOFRAN AND TYLENOL. NOW RESTING IN BED WITH EYES CLOSED. APPEARS TO BE SLEEPING. NO ACUTE CHANGES NOTED DURING THIS SHIFT. CALL LIGHT IN REACH.
--- NOTE | 2023-02-14 16:53 | NUR ---
Pt sitting in recliner chair upon arrival. Pt A&OX2/3. Pt unable to verbalize appropriate reason for hospital stay, does not know correct year but does know who the current assistant to the president is. Pt reports tolerable pain, and denies SOB. Brief discussion regarding advanced care planning. Educated on disease process including trajectory and planning for the future. Discussed consideration of hospice. Pt reports she leans more towards quality of life instead of quantity. She reports plan to discuss further with her spouse Braeden. Offered therapeutic listening as Pt reports being to her for over 40 years. Continued therapeutic listening. As conversation continues Pt appears to be all over the map. Cognition is questionable. Called and spoke with Pt's spouse Braeden. Relayed advanced care planning and the option to consider hospice. He reports plan to speak with Pt further about this option. He also questions Pt's cognition and wonders if she has some Dementia. Offered therapeutic listening and answered questions. Discussed Pt's code status as well. Braeden questions if Pt should be a Limited code or should be a DNR. He reports plan to discuss this further as well. Braeden expresses appreciation and reports no other concerns at this time. Provided Palliative Care contact information per Braeden's request. Palliative Care will remain available
--- NOTE | 2023-02-14 18:27 | NUR ---
SHIFT SUMMARY; ASSUMED CARE AT 0700. A/A/OX2-3, INTERMITANT CONFUSION. PLEASANT AND COOPERATIVE WITH CARE. MOVES SELF ON GURNEY FOR REPOSITIONING, WORKED WITH PT TODAY, 1 PERSON ASSIT WITH GAIT BELT TO RECLINER CHAIR. SAT IN CHAIR FOR SEVERAL HOURS. FEEDS SELF. LEFT SIDE SLIGHT FACIAL DROOP FROM PREVIOUS CVA WITH LEFT SIDE WEAKNESS. PURWICK CHANGED TODAY. ATTENDS CHANGE PRN. 2L 02 VIA TN, NO ACUTE MEDICAL CHANGES, WILL CONTINUE TO MONITOR AND TREAT UNTIL CHANGE OF SHIFT.
[2023-02-15 00:12] VITALS: BP 108/76
[2023-02-15 03:46] VITALS: BP 120/85
[2023-02-15 03:50] LABS: Hematocrit 32.8 % (33.0-51.0); Hemoglobin 10.6 g/dL (11.5-16.0); Mean Corpuscular HGB 27.8 pg (26.0-34.0); Mean Corpuscular HGB Conc 32.3 g/dL (31.5-36.5); Mean Corpuscular Volume 86 fL (80-100); Mean Platelet Volume 11.4 fL (9.1-12.4); Platelet Count 437 K/mm3 (150-400); RDW Coefficient Variation 22.9 % (11.7-14.2); RDW Standard Deviation 69.8 fL (35.1-46.3); Red Blood Cell Count 3.81 M/mm3 (3.80-5.20); White Blood Cell Count 7.75 K/mm3 (4.00-11.30)
--- NOTE | 2023-02-15 03:57 | NUR ---
SHIFT SUMMARY PT ORIENTED X4 BUT ODD AFFECT, REPEATS QUESTIONS AT TIMES, L PO DROOP AT BASELINE PER PREVIOUS CVA. WEAK IN LOWER EXTREMITIES. ON 2-3L NC. Q2 TURN BUT SHIFTS WEIGHT. BM X1, MAX ASSIST TO BSC. BEDREST OVERNIGHT. CHRONIC PAIN IN SHOULDERS, PRNS GIVEN X1 WITH RELIEF. REPORT GIVEN TO ALEJANDRO SPAULDING THIS AM.
[2023-02-15 04:23] LABS: Albumin, Blood 2.1 g/dL (3.4-5.0); Anion Gap 7 mmol/L (6-16); Blood Urea Nitrogen 18 mg/dL (8-24); Bun/Creatinine Ratio 21.2 (12.0-20.0); CO2, Blood 33 mmol/L (21-32); Calcium, Blood 8.1 mg/dL (8.5-10.1); Chloride, Blood 102 mmol/L (98-108); Creatinine, Blood 0.85 mg/dL (0.40-1.00); Glomerular Filtration Rate 75 (60-); Glucose, Blood 159 mg/dL (70-99); Magnesium, Blood 1.7 mg/dL (1.6-2.4); Phosphorus, Blood 2.4 mg/dL (2.5-4.9); Potassium, Blood 3.6 mmol/L (3.5-5.5); Sodium, Blood 142 mmol/L (136-145)
--- NOTE | 2023-02-15 05:22 | NUR ---
TRANSFER OF CARE ASSUMED CARE OF PT ~3351 THIS AM, RECEIVED REPORT FROM JASSON ESCOBAR. REVIEWED AND AGREE WITH PREVIOUS RN's ASSESSMENT FINDINGS. SEE JASSON ESCOBAR's SHIFT SUMMARY NOTE FOR MORE DETAILS.ASSESSED PT FOR RISKS OF ANY IGNITION SOURCES WELL BEHAVIORS FOR INCREASED RISKS OF FIRE DANGER. PT EDUCATED ON COMMON SOURCES OF IGNITION WELL NEED TO KEEP A SAFE ENVIRONMENT. PT VOICED UNDERSTANDING. NEW ORDERS AT THIS TIME, WILL REPORT TO ONCOMING RN. GAUTAM LAZARO OF THIS NOTE.
[2023-02-15 07:38] VITALS: BP 110/84
[2023-02-15 11:38] VITALS: BP 107/91
[2023-02-15 16:11] VITALS: BP 120/83
--- NOTE | 2023-02-15 17:49 | NUR ---
SHIFT SUMMARY; ASSUMED CARE AT 0700. PLESANT AND COOPERATIVE WITH CARE. CONFUSED AT TIMES UNCHANGED FROM PREVIOUS SHIFT. WORKED WITH PT/OT, SAT IN RECLINER CHAIR FOR 2 HOURS. MAX 2 PERSON ASSIST TO STAND AND TRANSFER. PURWICK IN PLACE FOR INCONTINANCE. MOVES SELF OF GURNEY TO REPOSITION. MEDS PER EMAR, NO ACUTE MEDICAL CHANGES, WILL CONTINUE TO MONITOR AND TREAT UNTIL CHANGE OF SHIFT.
[2023-02-15 19:34] VITALS: BP 106/75
[2023-02-16 01:29] VITALS: BP 135/92
--- NOTE | 2023-02-16 04:28 | NUR ---
SHIFT SUMMARY PT IS A&O3, MOMENTS OF FORGETFULNESS, 3L NC SATS LOW 90'S, VSS, PRN PAIN AND ANXIETY MEDS GIVEN PER SEP, PT HAD BM, NO ACUTE OVERNIGHT EVETNS, FIRE EDUCATION WHILE USING OXYGEN PROVIDED, CONTINUE POC
[2023-02-16 06:29] LABS: Albumin, Blood 2.2 g/dL (3.4-5.0); Anion Gap 5 mmol/L (6-16); Blood Urea Nitrogen 25 mg/dL (8-24); Bun/Creatinine Ratio 29.2 (12.0-20.0); CO2, Blood 34 mmol/L (21-32); Calcium, Blood 7.7 mg/dL (8.5-10.1); Chloride, Blood 101 mmol/L (98-108); Creatinine, Blood 0.86 mg/dL (0.40-1.00); Glomerular Filtration Rate 74 (60-); Glucose, Blood 125 mg/dL (70-99); Phosphorus, Blood 1.9 mg/dL (2.5-4.9); Potassium, Blood 3.5 mmol/L (3.5-5.5); Sodium, Blood 140 mmol/L (136-145)
[2023-02-16 07:32] VITALS: BP 125/88
[2023-02-16 10:20] VITALS: BP 107/72
[2023-02-16 17:56] VITALS: BP 129/86
--- NOTE | 2023-02-16 18:29 | NUR ---
SHIFT SUMMARY- PT ALERT AND ORIENTED TO SELF AND FAMILY, SHE IS CONFUSED, AND FORGETS FREQUENTLY ABOUT RECENT CONVERSATIONS. PT WAS SCHEDULED TO DC TO PSYCHIATRIC HOWEVER HER COVID TEST CAME BACK POSITIVE, THIS WAS A RAPID TEST. THE RESULT DOES NOT SHOW UP IN LABS. RESULT WAS PRINTED AND PLACED IN THE FRONT OF THE HARD CHART. PT PLACED INTO ISOLATION. PT IN BED, JUST PLACED ON THE BED BOSS FOR A POSSIBLE BM. PT USES A PUREWICK DURING THE DAY AND NIGHT. MEDICATED FOR PAIN AND NAUSEA AROUND 1800. PT IN BED (ON BEDPAN) CALL LIGHT IN REACH, NO S&S OF DISTRESS AT THIS TIME.
[2023-02-16 19:46] VITALS: BP 125/81
--- NOTE | 2023-02-17 02:00 | NUR ---
RN NOTE MS MURILLO WAS EDUCATED RE IGNITION SOURCES AND RISK OF INJURY WHILE OXYGEN IS IN USE. SHE DENIED SMOKING OR HAVING IGNITION SOURCES. SHE VERBALISED UNDERSTANDING. REASSESSMENT WITH Q 1-2 HOURLY ROUNDS. MS MURILLO C/O ANXIETY REGARDING COVID DIAGNOSIS AND GIVEN ATIVEN REQUESTED. NO C/O PAIN. ON TELEMETRY IN SR. NO CALLS FROM DRY MOP MAKER. ON O2 2L N/C, NO EPISODES OF SOB REPORTED. BED LOW, CALL LIGHT IN REACH.
--- NOTE | 2023-02-17 04:37 | NUR ---
SHIFT SUMMARY MS MURILLO APPEARS TO HAVE SLEPT WELL OVERNIGHT. SHE REQUIRED ATIVAN DOSE FOR ANXIETY BEFORE SHE WENT TO SLEEP. HER CAME IN TO SEE HER LAST EVENING. ON OXYGEN 2L NC OVERNIGHT. NO C/O PAIN. TELE SR, NO CALLS FROM PRINTER SLOTTER FEEDER. BED LOW, CALL LIGHT IN REACH.
[2023-02-17 06:20] LABS: Bun/Creatinine Ratio 31.9 (12.0-20.0); Calcium, Blood 7.8 mg/dL (8.5-10.1); Creatinine, Blood 0.72 mg/dL (0.40-1.00); Magnesium, Blood 1.8 mg/dL (1.6-2.4); Phosphorus, Blood 2.6 mg/dL (2.5-4.9); Potassium, Blood 3.8 mmol/L (3.5-5.5)
[2023-02-17 08:01] VITALS: BP 139/83
--- NOTE | 2023-02-17 08:47 | NUR ---
pt laying in bed, wakes easily, a/ox4, with occ confusion, cooperative with care, follows commands well, denies pain, slept well, lungs are clear in upper angela, dim with exp wheeze in bases, resp even and unlabored, no cough noted, hrr, tele in place running sr per monitor, see strip, no edema noted, ppp+1, cap refill <3sec, vs stable, afebrile, piv site is clear and patent, btx4, abd flat soft nontender, voids via purwick at this time, reg bm's per pt, skin has a small abrasion to coccyx area, other angeles c/w/d, maew, weak, meg, call light in reach.
--- NOTE | 2023-02-17 10:20 | NUR ---
pt expressing a lot of anxiety, gave po ativan as ordered. may be discharged today, call light in reach.
[2023-02-17] MEDS ORDERED: ASPI81CH PO (12:08)
--- NOTE | 2023-02-17 15:30 | NUR ---
pt was picked up by wheelchair transport, report was called into [facility], iv removed intact, left via wheelchair with column precaster assistance, left with all belongings to [facility].
== END 2023-02-17 15:37 | DRG 189 ==
LOC: ER 11:21 → PCU 11:22 → MEDS 02-15 15:26 → PCU 02-15 15:27 → MEDS 02-15 19:15 → ENPENDDIS 02-16 11:02 → MEDS 02-17 15:37
PROVIDERS: Emergency Medicine; Internal Medicine; Physician Assistant; ADMIT Internal Medicine
DX: J96.21 Acute and chronic respiratory failure with hypoxia (principal); I50.33 Acute on chronic diastolic (congestive) heart failure; U07.1 COVID-19; I26.99 Other pulmonary embolism without acute cor pulmonale; J81.1 Chronic pulmonary edema; E88.09 Other disorders of plasma-protein metabolism, not elsewhere classified; J84.89 Other specified interstitial pulmonary diseases; I95.9 Hypotension, unspecified; K59.00 Constipation, unspecified; M06.9 Rheumatoid arthritis, unspecified; M79.7 Fibromyalgia; G43.909 Migraine, unspecified, not intractable, without status migrainosus; F41.9 Anxiety disorder, unspecified; I48.0 Paroxysmal atrial fibrillation; F32.A Depression, unspecified; J44.9 Chronic obstructive pulmonary disease, unspecified; G89.4 Chronic pain syndrome; D73.5 Infarction of spleen; G47.33 Obstructive sleep apnea (adult) (pediatric); G62.9 Polyneuropathy, unspecified; E87.6 Hypokalemia; E83.39 Other disorders of phosphorus metabolism; Z96.611 Presence of right artificial shoulder joint; Z96.612 Presence of left artificial shoulder joint; Z95.818 Presence of other cardiac implants and grafts; Z90.89 Acquired absence of other organs; Z86.718 Personal history of other venous thrombosis and embolism; Z98.890 Other specified postprocedural states; Z88.6 Allergy status to analgesic agent; Z88.8 Allergy status to other drugs, medicaments and biological substances; Z91.048 Other nonmedicinal substance allergy status; Z79.891 Long term (current) use of opiate analgesic; Z79.4 Long term (current) use of insulin; Z79.899 Other long term (current) drug therapy; Z99.81 Dependence on supplemental oxygen; Z86.73 Personal history of transient ischemic attack (TIA), and cerebral infarction without residual deficits; Z79.01 Long term (current) use of anticoagulants; Z91.148 Patient's other noncompliance with medication regimen for other reason
CPT/HCPCS: 36415; 71046; 74177; 80048; 80053; 80069; 82803; 83735; 83880; 84100; 84145; 84484; 85025; 85027; 93005; 93010; 94760; 94762; 96361; 96365-59; 96366; 96367; 96375; 96376; 97110; 97162; 97166; 97530; 97535; 99285-25; A9270; G0378; J0696; J1940; J2405; J2543; J3480; J7030; J7050; J7060; J7512; Q9967

== ENCOUNTER 2023-03-13 16:31 | Emergency (ER) | payer MEDICARE ==
[~2023-03-13] VITALS: Ht 172.7 cm; Wt 78.5 kg
[~2023-03-13 16:31] MED LIST changes: +BASAGLAR K100 UNIT/3 SC; +PREGABALIN 200 MG
[2023-03-13 18:30] VITALS: BP 105/72
== END 2023-03-13 19:09 | disposition home or self-care (01) ==
LOC: ER 16:31
DX: M54.50 Low back pain, unspecified (principal); M54.2 Cervicalgia; W18.30XA Fall on same level, unspecified, initial encounter; Z91.09 Other allergy status, other than to drugs and biological substances; Z88.6 Allergy status to analgesic agent; Z88.8 Allergy status to other drugs, medicaments and biological substances; Z79.899 Other long term (current) drug therapy; Z79.811 Long term (current) use of aromatase inhibitors; Z79.01 Long term (current) use of anticoagulants; Z79.51 Long term (current) use of inhaled steroids; Z79.82 Long term (current) use of aspirin; J44.9 Chronic obstructive pulmonary disease, unspecified; G43.909 Migraine, unspecified, not intractable, without status migrainosus; Z86.718 Personal history of other venous thrombosis and embolism
CPT/HCPCS: 70450; 99284-25; A9270

== ENCOUNTER 2023-03-19 22:19 | Emergency (ER) | payer MEDICARE ==
[~2023-03-19] VITALS: Ht 172.7 cm; Wt 78.5 kg
[2023-03-19 23:12] LABS: BASOPHILS ABSOLUTE AUTO 0.09 K/mm3 (0.00-0.23); BASOPHILS PERCENT AUTO 1 % (0-2); EOSINOPHILS ABSOLUTE AUTO 0.36 K/mm3 (0.00-0.68); EOSINOPHILS PERCENT AUTO 2 % (0-6); Hematocrit 38.3 % (33.0-51.0); Hemoglobin 12.3 g/dL (11.5-16.0); IMMATURE GRAN ABSOLUTE AUTO 0.19 K/mm3 (0.00-0.10); IMMATURE GRAN PERCENT AUTO 1 % (0-1); LYMPHOCYTES ABSOLUTE AUTO 2.95 K/mm3 (0.84-5.20); LYMPHOCYTES PERCENT AUTO 20 % (21-46); MONOCYTES ABSOLUTE AUTO 1.96 K/mm3 (0.16-1.47); MONOCYTES PERCENT AUTO 13 % (4-13); Mean Corpuscular HGB 28.1 pg (26.0-34.0); Mean Corpuscular HGB Conc 32.1 g/dL (31.5-36.5); Mean Corpuscular Volume 88 fL (80-100); NEUTROPHILS ABSOLUTE AUTO 9.37 K/mm3 (1.96-9.15); NEUTROPHILS PERCENT AUTO 63 % (41-73); Platelet Count 590 K/mm3 (150-400); RDW Coefficient Variation 21.2 % (11.7-14.2); RDW Standard Deviation 66.5 fL (35.1-46.3); Red Blood Cell Count 4.37 M/mm3 (3.80-5.20); White Blood Cell Count 14.92 K/mm3 (4.00-11.30)
[2023-03-19 23:26] LABS: Albumin, Blood 2.2 g/dL (3.4-5.0); Albumin/Globulin Ratio 0.5 (0.8-1.8); Bilirubin, Total 0.5 mg/dL (0.1-1.0); Bun/Creatinine Ratio 12.2 (12.0-20.0); Calcium, Blood 8.5 mg/dL (8.5-10.1); Creatinine, Blood 0.9 mg/dL (0.40-1.00); Globulin, Blood 4.2 g/dL (2.2-4.0); Total Protein, Blood 6.4 g/dL (6.4-8.2)
[2023-03-20] MEDS ORDERED: K-Dur10 MEQ PO (00:53)
[2023-03-20] MEDS ORDERED: Kristalose20 GM PO (00:53)
[2023-03-20] MEDS ORDERED: AMOCLA875 PO (00:53)
[2023-03-20 01:00] VITALS: BP 96/70
== END 2023-03-20 02:10 | disposition home or self-care (01) ==
LOC: ER 22:19
PROVIDERS: Emergency Medicine
DX: K59.00 Constipation, unspecified (principal); E87.6 Hypokalemia; J84.89 Other specified interstitial pulmonary diseases; Z88.8 Allergy status to other drugs, medicaments and biological substances; Z88.6 Allergy status to analgesic agent; Z91.048 Other nonmedicinal substance allergy status; Z79.899 Other long term (current) drug therapy; Z79.82 Long term (current) use of aspirin; Z79.52 Long term (current) use of systemic steroids; M06.9 Rheumatoid arthritis, unspecified; G43.909 Migraine, unspecified, not intractable, without status migrainosus; J44.9 Chronic obstructive pulmonary disease, unspecified; I48.91 Unspecified atrial fibrillation
CPT/HCPCS: 71045; 74177; 80053; 83690; 83880; 85025; 93005; 93010; 96374-59; 96375; 99285-25; A9270; J2405; J3010; Q9967

== ENCOUNTER 2023-03-25 12:27 | Emergency (ER) | payer MEDICARE ==
[~2023-03-25] VITALS: Ht 172.7 cm; Wt 77.1 kg
[~2023-03-25 12:27] MED LIST changes: +AMOCLA875 PO; +K-Dur10 MEQ PO; +Kristalose20 GM PO
[2023-03-25 13:05] LABS: Hematocrit 40.7 % (33.0-51.0); Hemoglobin 13.2 g/dL (11.5-16.0); Mean Corpuscular HGB 27.6 pg (26.0-34.0); Mean Corpuscular HGB Conc 32.4 g/dL (31.5-36.5); Mean Corpuscular Volume 85 fL (80-100); Platelet Count 576 K/mm3 (150-400); RDW Coefficient Variation 21.1 % (11.7-14.2); Red Blood Cell Count 4.79 M/mm3 (3.80-5.20)
[2023-03-25 13:10] LABS: White Blood Cell Count 19.46 K/mm3 (4.00-11.30)
[2023-03-25 13:24] LABS: Albumin, Blood 2.2 g/dL (3.4-5.0); Albumin/Globulin Ratio 0.5 (0.8-1.8); Bilirubin, Total 0.7 mg/dL (0.1-1.0); Bun/Creatinine Ratio 13.1 (12.0-20.0); Calcium, Blood 8.7 mg/dL (8.5-10.1); Creatinine, Blood 0.77 mg/dL (0.40-1.00); Globulin, Blood 4.6 g/dL (2.2-4.0); Potassium, Blood 4.1 mmol/L (3.5-5.5); Total Protein, Blood 6.8 g/dL (6.4-8.2)
[2023-03-25 13:26] LABS: BASOPHILS ABSOLUTE MAN 0.19 K/mm3 (0.00-0.23); BASOPHILS PERCENT MAN 1 % (0-2); EOSINOPHILS ABSOLUTE MAN 0.19 K/mm3 (0.00-0.68); EOSINOPHILS PERCENT MAN 1 % (0-6); LYMPHOCYTES PERCENT MAN 18 % (21-46); MONOCYTES ABSOLUTE MAN 1.36 K/mm3 (0.16-1.47); MONOCYTES PERCENT MAN 7 % (4-13); SEG NEUTROPHILS PERCENT MAN 73 % (41-73); TOTAL CELLS COUNTED 100
[2023-03-25 16:52] LABS: Source, Urine Straight Cath
[2023-03-25 17:18] LABS: Bilirubin, Urine Neg (Neg); Blood, Urine Neg (Neg); Glucose Qualitative, Urine Neg (Neg); Ketones, Urine Neg (Neg); Leukocyte Esterase, Urine 1+ (Neg); Nitrite, Urine Neg (Neg); Protein, Urine 1+ (Neg); Urobilinogen, Urine NORM (Normal)
[2023-03-25 17:30] LABS: Appearance, Urine Clear (Clear); Color, Urine Yellow (P-Yellow)
[2023-03-25 17:31] LABS: Bacteria Few /hpf; Red Blood Cells, Urine Not Seen /hpf (0-2); Squamous Epithelial Cells Mod /hpf (Few)
[2023-03-25 18:00] VITALS: BP 93/63
== END 2023-03-25 18:41 | disposition home or self-care (01) ==
LOC: ER 12:27
PROVIDERS: Emergency Medicine; Physician Assistant
DX: S32.029A Unspecified fracture of second lumbar vertebra, initial encounter for closed fracture (principal); X58.XXXA Exposure to other specified factors, initial encounter; G43.909 Migraine, unspecified, not intractable, without status migrainosus; J44.9 Chronic obstructive pulmonary disease, unspecified; I48.91 Unspecified atrial fibrillation; Z86.711 Personal history of pulmonary embolism; Z86.718 Personal history of other venous thrombosis and embolism; Z79.01 Long term (current) use of anticoagulants; Z79.51 Long term (current) use of inhaled steroids; Z79.82 Long term (current) use of aspirin; Z79.52 Long term (current) use of systemic steroids; Z79.899 Other long term (current) drug therapy; Z88.6 Allergy status to analgesic agent; Z91.09 Other allergy status, other than to drugs and biological substances; Z88.8 Allergy status to other drugs, medicaments and biological substances
CPT/HCPCS: 51701; 74177; 80053; 81001; 83605; 83690; 85025; 87086; 96374-59; 99284-25; J2270; J7030; Q9967